=== PATIENT | female | born 1945 | race Caucasian/White ===

== ENCOUNTER 2022-11-13 20:12 | Inpatient (IN) | payer MEDICARE ==
[~2022-11-13] VITALS: Ht 165.1 cm; Wt 61.2 kg
--- OUTSIDE RECORDS SUMMARY | 2022-11-13 20:38 | XMS ---
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 Genny has no Care Guidelines for this patient. Stephenie VISIT COUNT (12 MO.) 1 [facility] TOTAL 1 NOTE: Visits indicate total known visits. ED/C VISIT TRACKING (12 MO.) 11/13/2022 20:14 [facility] [place] TYPE: Emergency COMPLAINT: - WEAKNESS INPATIENT VISIT TRACKING (12 MO.) No inpatient visits to display in this time frame [id number]
--- NOTE | 2022-11-13 23:00 | NUR ---
PT ARRIVES TO CCU ROOM 130 A MED SURG HOUSE CONVENIENCE. PT IS ALERT, AWAKE AND RESPONSDING APPROPRIATLEY. TRANSFERRED OVER TO BED USING DRAW SHEET. ASSESSMENT DONE, PT DENIES PAIN AT REST, DENIES FEELING SHORT OF BREATH. OCCASIONAL DRY COUGHING NOTED. ARRIVES ON 3L/O2 WITH SPO2 98%, O2 TITRATED DOWN TO 2L/O2. RR 20, LUNGS ARE DIM THROUGHOUT WITH FEW CRACKLES HEARD IN BASES. HR 70'S. ARRIVES WITH IV ABX INFUSING WHEN ARE SALINE LOCKED WHEN COMPLETED. PT GIVEN CALL LIGHT AND INSTRUCTED NOT TO GET UP WITHOUT CALLING AND SHE AGREES.
--- NOTE | 2022-11-13 23:30 | NUR ---
PT STATES SHE NEEDS TO VOID, UP WITH 2PA TO BS, PT WAS ABLE TO STAND UP WITH ASSIST AND DO MOST OF THE WORK HERSELF. DENIES DIZZINESS/LIGHTHEADEDNESS WHEN UP AND HR REMAINED STEADY. BACK TO BED, WARM BLANKET PROVIDED.
[2022-11-14] VITALS (10 sets, daily range): BP systolic 116–167; BP diastolic 65–92
--- NOTE | 2022-11-14 02:00 | NUR ---
PT CONT TO SLEEP, RESP EVEN AND UNLABORED, RR 24, SPO2 95% ON 2L
--- NOTE | 2022-11-14 04:00 | NUR ---
PT CONT TO SLEEP, RRR, HR 70'S
--- NOTE | 2022-11-14 05:45 | NUR ---
PT UP TO BR WITH 2PA, VOID 600ML AND BACK TO BED. WARM BLANKET PROVIDED.
--- NOTE | 2022-11-14 08:10 | NUR ---
RN IN ROOM - PT ASSISTED UP TO BSC WITH 1 PERSON ASSIST. SMALL HARD BM PRODUCED. PT USES FWW APPROPRIATLEY BUT WEAK FROM DECONDITIONING. DRY PRODUCTIVE COUGH NOTED WITH GREEN SPUTUM PT IS ABLE TO COUGH OUT. PT REMAINS ON 2L NC WITH SPO2 STABLE WITH AMBULATION. VS WNL. PT DENIES PAIN AT THIS TIME. DOES NOT WISH TO EAT BREAKFAST - JUICE PROVIDED PER REQUEST. AM CARES COMPLETE.
--- NOTE | 2022-11-14 08:43 | NUR ---
DAUGHTER UPDATED VIA PHONE CALL ON PT STATUS. ALL QUESTIONS ANSWERED.
[2022-11-14] MEDS ORDERED: ARMODAFINIL150 MG PO (10:20)
[2022-11-14] MEDS ORDERED: FESOTERODINE FUM4 MG PO (10:21)
[2022-11-14] MEDS ORDERED: BACLOFEN10 MG PO (10:21)
[2022-11-14] MEDS ORDERED: DULOXETINE HCL30 MG PO (10:21)
[2022-11-14] MEDS ORDERED: GABAPENTIN600 MG PO (10:22)
[2022-11-14] MEDS ORDERED: PRAVASTATIN SOD80 MG PO (10:22)
[2022-11-14] MEDS ORDERED: LAMOTRIGINE200 MG PO (10:22)
[2022-11-14] MEDS ORDERED: VITAMIN D3125 MC1 PO (10:24)
[2022-11-14] MEDS ORDERED: MUCINEX FAST-M180 M2 PO (10:25)
[2022-11-14] MEDS ORDERED: BAYER CHEWABLE81 MG PO (10:26)
[2022-11-14] MEDS ORDERED: CAL MAG ZINC +1 EACH PO (10:27)
[2022-11-14] MEDS ORDERED: TYLENOL EXTRA500 MG PO (10:28)
--- NOTE | 2022-11-14 10:29 | NUR ---
MED REC COMPLETE
--- NOTE | 2022-11-14 11:18 | NUR ---
PT ASSISTED TO BSC TO VOID - LARGE SOFT BM PRODUCED. PT BACK TO BED USING FWW AND 1 PERSON ASSIST. SCHEDULED MEDICATIONS ADMINISTERED. PT ABLE TO SWALLOW WITHOUT DIFFICULTY. CLEAR ENSURE PROVIDED FOR NUTRITIONAL SUPPORT. PT DENIES FURTHER NEEDS. CALL LIGHT IN LAP.
--- NOTE | 2022-11-14 13:01 | NUR ---
PT REFUSES LUNCH, STATES SHE IS NOT HUNGRY. ADDITIONAL CLEAR ENSURE PROVIDED WELL ICE WATER. ENCOURAGED PT TO DRINK FLUIDS. UP TO BSC BUT UNABLE TO VOID URINE. BLADDER SCAN SHOWED MAX 190MLS IN BLADDER. VS STABLE, WILL CONTINUE TO MONITOR/ASSESS.
--- NOTE | 2022-11-14 15:45 | NUR ---
ASSESSMENT COMPLETE - NO CHANGES. PT UP TO BSC AND ABLE TO VOID 550ML URINE. PT DENIES PAIN. PT TITRATED TO ROOM AIR AND SPO2 MAINTAINING GREATER THAN 92%. REAMINS IN SINUS RYTHEM. PT DENIES NEEDS. CALL LIGHT IN REACH.
--- NOTE | 2022-11-14 17:00 | NUR ---
RN ROUNDING ON PT - RESTING IN BED WITH HOB ELEVATED, EYES CLOSED, RR EVEN AND UNLABORED. CALL LIGHT IN LAP.
--- NOTE | 2022-11-14 20:00 | NUR ---
RECEIVED REPORT FROM VALE BOLTON; PT CALLS APPROPRIATELY, DENIES PAIN AT THIS TIME, CURRENTLY ON RA SATING IN THE S, WILL CONTINUE TO MONITOR AND NOTIFY PROVIDER WITH ANY CHANGES IN PT STATUS
[2022-11-15] VITALS: BP 87/58
--- NOTE | 2022-11-15 03:36 | NUR ---
PT SLEPT WELL OVER REGISTERED PHARMACY TECHNICIAN, PT CALLS APPROPRIATELY, VSS, PT HAS BEEN ON RA THROUGHOUT REGISTERED PHARMACY TECHNICIAN, NO SIGNIFICANT CHANGES, WILL CONTINUE TO MONITOR
[2022-11-15 03:38] VITALS: BP 111/69
[2022-11-15 05:34] VITALS: BP 108/71
--- NOTE | 2022-11-15 07:42 | NUR ---
REPORT RECEIVED FROM TORO COLLAZO. PT IS RESTING IN BED WITH EYES CLOSED, RESP EVEN AND UNLABORED, ON ROOM AIR WITH SPO2 94%, RR 22 AND HR 80S NSR
[2022-11-15 08:00] VITALS: BP 136/69
--- NOTE | 2022-11-15 08:15 | NUR ---
PT UP TO VOID, STEADY WITH 1PA AND WALKER, BACK TO BED, STATES SHE DOES NOT WANT BREAKFAST AND WANTS TO SLEEP MORE.
--- NOTE | 2022-11-15 09:50 | NUR ---
IN TO SEE PT
--- NOTE | 2022-11-15 09:54 | NUR ---
SPOKE TO PATIENT ABOUT HER DISCHARGE PLAN.PATIENT PLANS TO GO BACK TO [facility] WHEN MEDICALLY STABLE. PATIENT CAN DO HER OWN ADLS.PATIENT USES A WALKER.PATIENT HAS HER MEDICATIONS AND MEALS PROVIDED BY THE [facility]. PATIENT STATES TRANSPORTATION IS PROVIDED BY HER BROTHERS. SPOKE TO THE NURSE AT [facility] AND UPDATED FACILITY THAT PATIENT MAY GO BACK TO [facility] TODAY. [employer]ER WILL FAX UPDATED PATIENT MEDICAL RECORDS TO [facility].
[2022-11-15] MEDS ORDERED: CEFPODOXIME PR200 MG PO (10:29)
[2022-11-15] MEDS ORDERED: AZITHROMYCIN250 MG PO (10:30)
[2022-11-15] MEDS ORDERED: ELIQUIS5 MG PO (10:35)
--- NOTE | 2022-11-15 12:03 | NUR ---
PT IS REQUESTING PCP REFERRAL, SPOKE WITH LILIANA FROM CASE MANAGEMENT WHO WILL WORK ON GETTING PT A PCP REFERRAL.
[2022-11-25] MEDS ORDERED: ELIQUIS5 MG PO (14:01)
[2022-11-25] MEDS ORDERED: BENZONATATE100 MG PO (14:03)
[2022-11-25] MEDS ORDERED: MUCINEX600 MG PO (14:04)
[2022-11-27] MEDS ORDERED: ARMODAFINIL150 MG PO (20:52)
== END 2022-11-15 12:45 | DRG 177 ==
LOC: ED 20:12 → CCU 22:29
PROVIDERS: ADMIT Family Medicine; ATTEND Family Medicine
PROC: 3E0333Z Introduction of Anti-inflammatory into Peripheral Vein, Percutaneous Approach (ICD-10-PCS; principal; 2022-11-13)
PROC: 8E0ZXY6 Isolation (ICD-10-PCS; 2022-11-13)
PROC: XW033E5 Introduction of Remdesivir Anti-infective into Peripheral Vein, Percutaneous Approach, New Technology Group 5 (ICD-10-PCS; 2022-11-14)
DX: U07.1 COVID-19 (principal); I26.94 Multiple subsegmental thrombotic pulmonary emboli without acute cor pulmonale; J12.82 Pneumonia due to coronavirus disease 2019; J96.01 Acute respiratory failure with hypoxia; E78.5 Hyperlipidemia, unspecified; N32.81 Overactive bladder; R25.1 Tremor, unspecified; M54.9 Dorsalgia, unspecified; G89.29 Other chronic pain; G35 Multiple sclerosis; M19.90 Unspecified osteoarthritis, unspecified site; Z99.81 Dependence on supplemental oxygen; Z79.01 Long term (current) use of anticoagulants; Z79.899 Other long term (current) drug therapy
CPT/HCPCS: 36415; 71045; 71260; 80048; 80053; 81003; 82803; 83605; 83615; 83880; 84484; 85025; 85379; 85610; 94640; 97161; 99285 25; J0248; J0456; J0696; J1100; J1650; J7050; J7060

== ENCOUNTER 2022-11-18 10:27 | Emergency (ER) | payer MEDICARE ==
[~2022-11-18] VITALS: Ht 165.1 cm; Wt 61.2 kg
--- OUTSIDE RECORDS SUMMARY | ~2022-11-18 | XMS | Continuity of Care Document ---
Demographics + + + | Address | [address] | | | [place] [address] | + + + | Preferred Language | Unknown | + + + | Marital Status | | + + + | Orthodoxy Affiliation | Unknown | + + + | Race | White | + + + | Ethnic Group | Not or | + + + Author + + + | Author | [facility] | + + + | Organization | [facility] | + + + | Address | [address] | | | [place] [address] | + + + | Phone | | + + + Care Team Providers + + + + | Care Development Lead Name | Role | Phone | + + + + Unavailable | Unavailable | + + + + Unavailable | Unavailable | + + + + Unavailable | Unavailable | + + + + Allergies No information. Encounters No information. Functional Status No information. Immunizations No information. Medications + + + + | date | description | facility | + + + + | 2022-11-15 00:00 | | [facility] | | | Guaifenesin/Dextromethorpha | | | | n | | + + + + | 2022-11-15 00:00 | CA CARB/VIT D3/MAG OX/ZN | [facility] | | | OXIDE | | + + + + | 2022-11-15 00:00 | APIXABAN | [facility] | + + + + | 2022-11-15 00:00 | BACLOFEN | [facility] | + + + + | 2022-11-15 00:00 | LAMOTRIGINE | [facility] | + + + + | 2022-11-15 00:00 | ACETAMINOPHEN | [facility] | + + + + | 2022-11-15 00:00 | Cholecalciferol (Vitamin | [facility] | | | D3) | | + + + + | 2022-11-15 00:00 | AZITHROMYCIN | [facility] | + + + + | 2022-11-15 00:00 | CEFPODOXIME PROXETIL | [facility] | + + + + | 2022-11-15 00:00 | GABAPENTIN | [facility] | + + + + | 2022-11-15 00:00 | DULOXETINE HCL | [facility] | + + + + | 2022-11-15 00:00 | Armodafinil | [facility] | + + + + | 2022-11-15 00:00 | Fesoterodine Fumarate | [facility] | + + + + | 2022-11-15 00:00 | ASPIRIN | [facility] | + + + + | 2022-11-15 00:00 | PRAVASTATIN SODIUM | [facility] | + + + + Problems + + + + | date | description | facility | + + + + | 2022-11-13 00:00 | Multiple subsegmental | [facility] | | | pulmonary emboli without | | | | acute cor pulmonale | | + + + + | 2022-11-13 00:00 | Pneumonia due to COVID-19 | [facility] | | | virus | | + + + + | 2022-11-13 22:29 | HYPERLIPIDEMIA, | [facility] | | | UNSPECIFIED | | + + + + | 2022-11-13 22:29 | 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 | | | | (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-G37) | | + + + + | 2022-11-13 22:29 | OTHER CHRONIC PAIN | [facility] | + + + + | 2022-11-13 22:29 | MULT SUBSEGMENTAL PULMON | [facility] | | | EMBOLI WITHOUT ACUTE COR | | + + + + | 2022-11-13 22:29 | ACUTE RESPIRATORY FAILURE | [facility] | | | WITH HYPOXIA | | + + + + | 2022-11-13 22:29 | UNSPECIFIED | [facility] | | | OSTEOARTHRITIS, UNSPECIFIED | | | | SITE | | + + + + | 2022-11-13 22:29 | DORSALGIA, UNSPECIFIED | [facility] | + + + + | 2022-11-13 22:29 | OVERACTIVE BLADDER | [facility] | + + + + | 2022-11-13 22:29 | TREMOR, UNSPECIFIED | [facility] | + + + + | 2022-11-13 22:29 | COVID-19 | [facility] | + + + + | 2022-11-13 22:29 | HALF-WAY (CURRENT) USE OF | [facility] | | | ANTICOAGULANTS | | + + + + | 2022-11-13 22:29 | OTHER HALF-WAY (CURRENT) | [facility] | | | DRUG THERAPY | | + + + + | 2022-11-13 22:29 | DEPENDENCE ON SUPPLEMENTAL | [facility] | | | OXYGEN | | + + + + Procedures No information. Results/Labs +--------+--------+ + +---------+--------+ + | test | date | author | facility | value | unit | | | | | | | | | interpreta | | | | | | | | tion | +--------+--------+ + +---------+--------+ + + + | Result panel 1 | + + + + + + +---------+ + + | (unknown) | (no date) | (unknown) | [facility] (no | (units | (unknown) | | | [facility] value[facility] | [facility] | | | | + + + + +---------+ + + + + | Result panel 2 | + + + + + + +---------+ + + | (unknown) | (no date) | (unknown) | [facility] | (no | (units | (unknown) | | | [facility] | value) | unknown) | [facility] | | | | + + + + +---------+ + + + + | Result panel 3 | + + + + + + +---------+ + + | (unknown) | (no date) | (unknown) | [facility] | (no | (units | (unknown) | | | [facility] | value) | unknown) | | [facility] | | | | + + + + +---------+ + + + + | Result panel 4 | + + + + + + +---------+ + + | (unknown) | (no date) | (unknown) | [facility] | (no | (units | (unknown) | | | [facility] | value) | unknown) | | [facility] | | | | + + + + +---------+ + + + + | Result panel 5 | + + + + + + +---------+ + + | (unknown) | (no date) | (unknown) | [facility] | (no | (units | (unknown) | | | | [facility] | value) | unknown) | | | | [facility] | | | | + + + + +---------+ + + + + | Result panel 6 | + + + + + + +---------+ + + | (unknown) | (no date) | (unknown) | [facility] | (no | (units | (unknown) | | | | [facility] | value) | unknown) | | | [facility] | | | | + + + + +---------+ + + + + | Result panel 7 | + + + + + + +---------+ + + | (unknown) | (no date) | (unknown) | [facility] | (no | (units | (unknown) | | | [facility] | value) | unknown) | | | | [facility] | | | | + + + + +---------+ + + + + | Result panel 8 | + + + + + + +---------+ + + | (unknown) | (no date) | (unknown) | [facility] | (no | (units | (unknown) | | | | [facility] | value) | unknown) | | | | [facility] | | | | + + + + +---------+ + + + + | Result panel 9 | + + + + + + +---------+ + + | (unknown) | (no date) | (unknown) | [facility] | (no | (units | (unknown) | | | | [facility] | value) | unknown) | | | | [facility] | | | | + + + + +---------+ + + + + | Result panel 10 | + + + + + + +---------+ + + | (unknown) | (no date) | (unknown) | [facility] | (no | (units | (unknown) | | | [facility] | value) | unknown) | | | [facility] | | | | + + + + +---------+ + + + + | Result panel 11 | + + + + + + +---------+ + + | (unknown) | (no date) | (unknown) | [facility] | (no | (units | (unknown) | | | [facility] | value) | [facility]) | | | | [facility] | | | | + + + + +---------+ + + + + | Result panel 12 | + + + + + + +---------+ + + | (unknown) | (no date) | (unknown) | [facility] | (no | (units | (unknown) | | | [facility] | value) | [facility]) | | | | [facility] | | | | + + + + +---------+ + + + + | Result panel 13 | + + + + + + +---------+ + + | (unknown) | (no date) | (unknown) | [facility] | (no | (units | (unknown) | | | [facility] | value) | unknown) | | | | [facility] | | | | + + + + +---------+ + + + + | Result panel 14 | + + + + + + +---------+ + + | (unknown) | (no date) | (unknown) | [facility] | (no | (units | (unknown) | | | [facility] | value) | [facility]) | | | | [facility] | | | | + + + + +---------+ + + + + | Result panel 15 | + + + + + + +---------+ + + | (unknown) | (no date) | (unknown) | [facility] | (no | (units | (unknown) | | | [facility] | value) | [facility]) | | | [facility] | | | | + + + + +---------+ + + + + | Result panel 16 | + + + + + + +---------+ + + | (unknown) | (no date) | (unknown) | [facility] | (no | (units | (unknown) | | | [facility] | value) | [facility]) | | | | [facility] | | | | + + + + +---------+ + + + + | Result panel 17 | + + + + + + +---------+ + + | (unknown) | (no date) | (unknown) | [facility] | (no | (units | (unknown) | | | [facility] | value) | [facility]) | | | [facility] | | | | + + + + +---------+ + + + + | Result panel 18 | + + + + + + +---------+ + + | (unknown) | (no date) | (unknown) | [facility] | (no | (units | (unknown) | | | [facility] value) | [facility]) | | [facility] | | | | + + + + +---------+ + + + + | Result panel 19 | + + + + + + +---------+ + + | (unknown) | (no date) | (unknown) | [facility] | (no | (units | (unknown) | [facility] | [facility] value) | [facility]) | | | [facility] | | | | + + + + +---------+ + + + + | Result panel 20 | + + + + + + +---------+ + + | (unknown) | (no date) | (unknown) | [facility] | (no | (units | (unknown) | | | [facility] value) | [facility]) | | [facility] | | | | + + + + +---------+ + + + + | Result panel 21 | + + + + + + +---------+ + + | (unknown) | (no date) | (unknown) | [facility] | (no | (units | (unknown) | | | [facility] value) | [facility]) | | [facility] | | | | + + + + +---------+ + + + + | Result panel 22 | + + + + + + +---------+ + + | (unknown) | (no date) | (unknown) | [facility] | (no | (units | (unknown) | | | [facility] value) | [facility]) | | [facility] | | | | + + + + +---------+ + + + + | Result panel 23 | + + + + + + +---------+ + + | (unknown) | (no date) | (unknown) | [facility] | (no | (units | (unknown) | | | [facility] | value) | [facility]) | | | [facility] | | | | + + + + +---------+ + + + + | Result panel 24 | + + + + + + +---------+ + + | (unknown) | (no date) | (unknown) | [facility] | (no | (units | (unknown) | | | [facility] value) | [facility]) | [facility] | | | | + + + + +---------+ + + + + | Result panel 25 | + + + + + + +---------+ + + | (unknown) | (no date) | (unknown) | [facility] | (no | (units | (unknown) | | | [facility] value) | [facility]) | | [facility] | | | | + + + + +---------+ + + + + | Result panel 26 | + + + + + + +---------+ + + | (unknown) | (no date) | (unknown) | [facility] | (no | (units | (unknown) | | | [facility] value) | [facility]) | | [facility] | | | | + + + + +---------+ + + + + | Result panel 27 | + + + + + + +---------+ + + | (unknown) | (no date) | (unknown) | [facility] | (no | (units | (unknown) | | | [facility] value) | [facility]) | | [facility] | | | | + + + + +---------+ + + + + | Result panel 28 | + + + + + + +---------+ + + | (unknown) | (no date) | (unknown) | [facility] | (no | (units | (unknown) | | | [facility] value) | [facility]) | | [facility] | | | | + + + + +---------+ + + + + | Result panel 29 | + + + + + + +---------+ + + | (unknown) | (no date) | (unknown) | [facility] | (no | (units | (unknown) | | | [facility] | value) | [facility]) | | [facility] | | | | + + + + +---------+ + + + + | Result panel 30 | + + + + + + +---------+ + + | (unknown) | (no date) | (unknown) | [facility] | (no | (units | (unknown) | | | [facility] value) | [facility]) | [facility] | | | | + + + + +---------+ + + + + | Result panel 31 | + + + + + + +---------+ + + | (unknown) | (no date) | (unknown) | [facility] | (no | (units | (unknown) | | | [facility] value) | [facility]) | [facility] | | | | + + + + +---------+ + + + + | Result panel 32 | + + + + + + +---------+ + + | (unknown) | (no date) | (unknown) | [facility] | (no | (units | (unknown) | | | [facility] | value) | [facility]) | | [facility] | | | | + + + + +---------+ + + + + | Result panel 33 | + + + + + + +---------+ + + | (unknown) | (no date) | (unknown) | [facility] | (no | (units | (unknown) | | | [facility] | value) | [facility]) | | [facility] | | | | + + + + +---------+ + + + + | Result panel 34 | + + + + + + +---------+ + + | (unknown) | (no date) | (unknown) | [facility] | (no | (units | (unknown) | | | [facility] | value) | [facility]) | | | [facility] | | | | + + + + +---------+ + + + + | Result panel 35 | + + + + + + +---------+ + + | (unknown) | (no date) | (unknown) | [facility] | (no | (units | (unknown) | | | [facility] | value) | [facility]) | | | [facility] | | | | + + + + +---------+ + + + + | Result panel 36 | + + + + + + +---------+ + + | (unknown) | (no date) | (unknown) | [facility] | (no | (units | (unknown) | | | [facility] | value) | [facility]) | | | [facility] | | | | + + + + +---------+ + + + + | Result panel 37 | + + + + + + +---------+ + + | (unknown) | (no date) | (unknown) | [facility] | (no | (units | (unknown) | | | [facility] | value) | [facility]) | | | [facility] | | | | + + + + +---------+ + + + + | Result panel 38 | + + + + + + +---------+ + + | (unknown) | (no date) | (unknown) | [facility] | (no | (units | (unknown) | | | [facility] | value) | [facility]) | | | [facility] | | | | + + + + +---------+ + + + + | Result panel 39 | + + + + + + +---------+ + + | (unknown) | (no date) | (unknown) | [facility] | (no | (units | (unknown) | | | [facility] | value) | [facility]) | | [facility] | | | | + + + + +---------+ + + + + | Result panel 40 | + + + + + + +---------+ + + | (unknown) | (no date) | (unknown) | [facility] | (no | (units | (unknown) | | | [facility] value) | [facility]) | | [facility] | | | | + + + + +---------+ + + + + | Result panel 41 | + + + + + + +---------+ + + | (unknown) | (no date) | (unknown) | [facility] | (no | (units | (unknown) | | | [facility] value) | [facility]) | | | [facility] | | | | + + + + +---------+ + + + + | Result panel 42 | + + + + + + +---------+ + + | (unknown) | (no date) | (unknown) | [facility] | (no | (units | (unknown) | | | [facility] | value) | [facility]) | | [facility] | | | | + + + + +---------+ + + + + | Result panel 43 | + + + + + + +---------+ + + | (unknown) | (no date) | (unknown) | [facility] | (no | (units | (unknown) | | | [facility] | value) | [facility]) | | | [facility] | | | | + + + + +---------+ + + + + | Result panel 44 | + + + + + + +---------+ + + | (unknown) | (no date) | (unknown) | [facility] | (no | (units | (unknown) | | | [facility] value) | [facility]) | [facility] | | | | + + + + +---------+ + + + + | Result panel 45 | + + + + + + +---------+ + + | (unknown) | (no date) | (unknown) | [facility] | (no | (units | (unknown) | | | [facility] | [facility] | | | | + + + + +---------+ + + + + | Result panel 46 | + + + + + + +---------+ + + | (unknown) | (no date) | (unknown) | [facility] | (no | (units | (unknown) | | | [facility]) | [facility]) | [facility] | | | | + + + + +---------+ + + + + | Result panel 47 | + + + + + + +---------+ + + | (unknown) | (no date) | (unknown) | [facility] | (no | (units | (unknown) | | | [facility] value) | [facility] | | [facility] | | | | + + + + +---------+ + + + + | Result panel 48 | + + + + + + +---------+ + + | (unknown) | (no date) | (unknown) | [facility] | (no | (units | (unknown) | | | [facility]) | [facility]) | | [facility] | | | | + + + + +---------+ + + + + | Result panel 49 | + + + + + + +---------+ + + | (unknown) | (no date) | (unknown) | [facility] | (no | (units | (unknown) | | | [facility]) | [facility]) | [facility] | | | | + + + + +---------+ + + + + | Result panel 50 | + + + + + + +---------+ + + | (unknown) | (no date) | (unknown) | [facility] | (no | (units | (unknown) | | | [facility]) | [facility]) | [facility] | | | | + + + + +---------+ + + + + | Result panel 51 | + + + + + + +---------+ + + | (unknown) | (no date) | (unknown) | [facility] | (no | (units | (unknown) | | | [facility] | [facility] | | | | + + + + +---------+ + + Social History + + + + | date | description | facility | + + + + | 2022-11-15 00:00 | Unknown if ever smoked | [facility] | + + + + Vital Signs + + + +---------+ | date | measurement | value | units | + + + +---------+ | 2022-11-13 00:00 | BMI | 22.5 | kg/m2 | + + + +---------+ | 2022-11-13 00:00 | height_metric | 165.1 | cm | + + + +---------+ | 2022-11-13 00:00 | height_standard | 65 | in | + + + +---------+ | 2022-11-13 00:00 | weight_metric | 61.23 | kg | + + + +---------+ | 2022-11-13 00:00 | weight_standard | 134.99 | lb | + + + +---------+ | 2022-11-13 00:00 | weight_standard | 135 | lb | + + + +---------+ | 2022-11-15 00:00 | BP_diastolic | 69 | mmHg | + + + +---------+ | 2022-11-15 00:00 | BP_systolic | 136 | mmHg | + + + +---------+ | 2022-11-15 00:00 | heart_rate | 85 | /min | + + + +---------+ | 2022-11-15 00:00 | o2_saturation | 94 | % | + + + +---------+ | 2022-11-15 00:00 | respiration_rate | 18 | /min | + + + +---------+ | 2022-11-15 00:00 | temperature_metric | 36.61 | C | | | | | | + + + +---------+ | 2022-11-15 00:00 | | 97.9 | F | | | temperature_standar | | | | | d | | | + + + +---------+"
--- OUTSIDE RECORDS SUMMARY | ~2022-11-18 | XMS | Continuity of Care Document ---
Demographics + + + | Address | [address] | | | [place] [address] | + + + | Preferred Language | Unknown | + + + | Marital Status | | + + + | Pentecostal Affiliation | Unknown | + + + | Race | White | + + + | Ethnic Group | Not or | + + + Author + + + | Author | [facility] | + + + | Organization | [facility] | + + + | Address | [address] | | | [place] [address] | + + + | Phone | | + + + Care Team Providers + + + + | Care Pain Medicine Physician Name | Role | Phone | + [...] + + | 2022-11-15 00:00 | | [facility] | | | Guaifenesin/Dextromethorpha | | | | n | | + + + + | 2022-11-15 00:00 | CA CARB/VIT D3/MAG OX/ZN | [facility] | | | OXIDE | | + + + + | 2022-11-15 00:00 | APIXABAN | [facility] | + + + + | 2022-11-15 00:00 | BACLOFEN | [facility] | + + + + | 2022-11-15 00:00 | LAMOTRIGINE | [facility] | + + + + | 2022-11-15 00:00 | ACETAMINOPHEN | [facility] | + + + + | 2022-11-15 00:00 | Cholecalciferol (Vitamin | [facility] | | | D3) | | + + + + | 2022-11-15 00:00 | AZITHROMYCIN | [facility] | + + + + | 2022-11-15 00:00 | CEFPODOXIME PROXETIL | [facility] | + + + + | 2022-11-15 00:00 | GABAPENTIN | [facility] | + + + + | 2022-11-15 00:00 | DULOXETINE HCL | [facility] | + + + + | 2022-11-15 00:00 | Armodafinil | [facility] | + + + + | 2022-11-15 00:00 | Fesoterodine Fumarate | [facility] | + + + + | 2022-11-15 00:00 | ASPIRIN | [facility] | + + + + | 2022-11-15 00:00 | PRAVASTATIN SODIUM | [facility] | + + + + Problems + + + + | date | description | facility | + + + + | 2022-11-13 00:00 | Multiple subsegmental | [facility] | | | pulmonary emboli without | | | | acute cor pulmonale | | + + + + | 2022-11-13 00:00 | Pneumonia due to COVID-19 | [facility] | | | virus | | [...] + + + | 2022-11-13 22:29 | PRISON (CURRENT) USE OF | [facility] | | | ANTICOAGULANTS | | + + + + | 2022-11-13 22:29 | OTHER PRISON (CURRENT) | [facility] | | | DRUG [...] | (unknown) | | | | | Wilyl | value) | unknown) | | | [...] | (unknown) | | | | | Wlily | value) | unknown) | | | [...] 00:00 | Unknown if ever smoked | [facility] | + + + + Vital Signs [...]
[~2022-11-18 10:27] MED LIST: ARMODAFINIL150 MG PO; AZITHROMYCIN250 MG PO; BACLOFEN10 MG PO; BAYER CHEWABLE81 MG PO; CAL MAG ZINC +1 EACH PO; CEFPODOXIME PR200 MG PO; DULOXETINE HCL30 MG PO; ELIQUIS5 MG PO; FESOTERODINE FUM4 MG PO; GABAPENTIN600 MG PO; LAMOTRIGINE200 MG PO; MUCINEX FAST-M180 M2 PO; PRAVASTATIN SOD80 MG PO; TYLENOL EXTRA500 MG PO; VITAMIN D3125 MC1 PO
--- OUTSIDE RECORDS SUMMARY | 2022-11-18 10:30 | XMS ---
PreManage Notification: RY REDDY Security Site Leader Events No recent Security Events currently on file CRITERIA MET - [facility] - [facility] - 2 Visits in 30 Days CARE PROVIDERS There are no care providers on record at this time. Genny has no Care Guidelines for this patient. Stephen[facility] (12 MO.) [facility] NOTE: Visits indicate total known visits. ED/C VISIT TRACKING (12 MO.) 11[facility]18[facility]2022 10:[facility] COMPLAINT: - WEAKNESS, COVID+ 11/13/2022 20:14 [facility] [place] TYPE: Emergency COMPLAINT: - WEAKNESS INPATIENT VISIT TRACKING (12 MO.) 11/13/2022 22:29 [facility] [place] TYPE: Critical Care COMPLAINT: - COVID PNA,SUB SEGMENTAL PE DIAGNOSES: - Acute respiratory failure with hypoxia - Acute respiratory failure with hypoxia - COVID-19 - Dependence on supplemental oxygen - Dependence on supplemental oxygen - Dorsalgia, unspecified - Dorsalgia, unspecified - Hyperlipidemia, unspecified - Hyperlipidemia, unspecified - terminal system operator (current) use of anticoagulants - terminal system operator (current) use of anticoagulants - Multiple sclerosis - Multiple sclerosis - Multiple subsegmental pulmonary emboli without acute cor pulmonale - Multiple subsegmental pulmonary emboli without acute cor pulmonale - Other chronic pain - Other chronic pain - Other terminal operator (current) drug therapy - Other fdc (current) drug therapy - Overactive bladder - Overactive bladder - Pneumonia due to coronavirus disease 2018 - Pneumonia due to coronavirus disease 2018 - Tremor, unspecified - Tremor, unspecified - Unspecified osteoarthritis, unspecified site - Unspecified osteoarthritis, unspecified site [id number]
[2022-11-18 18:13] VITALS: BP 131/71
[2022-11-25] MEDS ORDERED: ELIQUIS5 MG PO (14:01)
[2022-11-25] MEDS ORDERED: BENZONATATE100 MG PO (14:03)
[2022-11-25] MEDS ORDERED: MUCINEX600 MG PO (14:04)
[2022-11-27] MEDS ORDERED: ARMODAFINIL150 MG PO (20:52)
== END 2022-11-18 18:15 | disposition home or self-care (01) ==
LOC: ED 10:27
DX: R53.1 Weakness (principal); Z79.01 Long term (current) use of anticoagulants; Z79.899 Other long term (current) drug therapy; Z86.16 Personal history of COVID-19
CPT/HCPCS: 36415; 51701; 71045; 80053; 81003; 85025; 99285 25; J7030

== ENCOUNTER 2022-11-19 12:16 | Inpatient (IN) | payer MEDICARE ==
[~2022-11-19] VITALS: Ht 165.1 cm; Wt 62.2 kg
--- OUTSIDE RECORDS SUMMARY | ~2022-11-19 | XMS | Continuity of Care Document ---
Demographics + + + | Address | [address] | | | [place] [address] | + + + | Preferred Language | Unknown | + + + | Marital Status | | + + + | Pentecostal Affiliation | Unknown | + + + | Race | White | + + + | Ethnic Group | Not or | + + + Author + + + | Author | [facility] | + + + | Organization | [facility] | + + + | Address | [address] | | | [place] [address] | + + + | Phone | | + + + Care Team Providers + + + + | Care Career Advisor Name | Role | Phone | + + + + Unavailable | Unavailable | + + + + Unavailable | Unavailable | + + + + Unavailable | Unavailable | + + + + Allergies and Intolerances + + + + + | date | description | facility | type | + + + + + | (no date) | No Known Allergies | [facility] | (unknown) | | | | | | + + + + + Encounters No information. Functional Status No information. Immunizations No information. Medications + + + + | date | description | facility | + + + + | 2022-11-15 00:00 | | [facility] | | | Guaifenesin/Dextromethorpha | | | | n | | + + + + | 2022-11-18 00:00 | | [facility] | | | Guaifenesin/Dextromethorpha | | | | n | | + + + + | 2022-11-15 00:00 | CA CARB/VIT D3/MAG OX/ZN | [facility] | | | OXIDE | | + + + + | 2022-11-18 00:00 | CA CARB/VIT D3/MAG OX/ZN | [facility] | | | OXIDE | | + + + + | 2022-11-15 00:00 | APIXABAN | [facility] | + + + + | 2022-11-15 00:00 | BACLOFEN | [facility] | + + + + | 2022-11-18 00:00 | BACLOFEN | [facility] | + + + + | 2022-11-15 00:00 | LAMOTRIGINE | [facility] | + + + + | 2022-11-18 00:00 | LAMOTRIGINE | [facility] | + + + + | 2022-11-15 00:00 | ACETAMINOPHEN | [facility] | + + + + | 2022-11-18 00:00 | ACETAMINOPHEN | [facility] | + + + + | 2022-11-15 00:00 | Cholecalciferol (Vitamin | [facility] | | | D3) | | + + + + | 2022-11-18 00:00 | Cholecalciferol (Vitamin | [facility] | | | D3) | | + + + + | 2022-11-15 00:00 | AZITHROMYCIN | [facility] | + + + + | 2022-11-15 00:00 | CEFPODOXIME PROXETIL | [facility] | + + + + | 2022-11-15 00:00 | GABAPENTIN | [facility] | + + + + | 2022-11-18 00:00 | GABAPENTIN | [facility] | + + + + | 2022-11-15 00:00 | DULOXETINE HCL | [facility] | + + + + | 2022-11-18 00:00 | DULOXETINE HCL | [facility] | + + + + | 2022-11-15 00:00 | Armodafinil | [facility] | + + + + | 2022-11-18 00:00 | Armodafinil | [facility] | + + + + | 2022-11-15 00:00 | Fesoterodine Fumarate | [facility] | + + + + | 2022-11-18 00:00 | Fesoterodine Fumarate | [facility] | + + + + | 2022-11-15 00:00 | ASPIRIN | [facility] | + + + + | 2022-11-18 00:00 | ASPIRIN | [facility] | + + + + | 2022-11-15 00:00 | PRAVASTATIN SODIUM | [facility] | + + + + | 2022-11-18 00:00 | PRAVASTATIN SODIUM | [facility] | + + + + Problems + + + + | date | description | facility | + + + + | 2022-11-13 00:00 | Multiple subsegmental | [facility] | | | pulmonary emboli without | | | | acute cor pulmonale | | + + + + | 2022-11-13 00:00 | Pneumonia due to COVID-19 | [facility] | | | virus | | [...] + + + | 2022-11-13 22:29 | RAIL LOADER (CURRENT) USE OF | [facility] | | | ANTICOAGULANTS | | + + + + | 2022-11-13 22:29 | OTHER RAIL LOADER (CURRENT) | [facility] | | | DRUG THERAPY | | + + + + | 2022-11-13 22:29 | DEPENDENCE ON SUPPLEMENTAL | [facility] | | | OXYGEN | | + + + + | 2022-11-18 00:00 | Nonspecific chest pain | [facility] | + + + + Procedures + + + + | date | description | facility | + + + + | 2022-11-13 00:00 | INTRODUCTION OF | [facility] | | | ANTI-INFLAM INTO PERIPH | | | | VEIN, PERC APPROACH | | + + + + | 2022-11-13 00:00 | ISOLATION | [facility] | + + + + | 2022-11-14 00:00 | INTRODUCE REMDESIVIR IN | [facility] | | | PERIPH VEIN, VERNA, NEW TECH | | | | 5 | | + + + + Results/Labs +--------+--------+ + +---------+--------+ + | test [...] (unknown) | (no date) | (unknown) | [facility] | (no | (units | (unknown) | | | | | [place] | value) | unknown) | | | [...] + + + + | Result panel 52 | + + + + + + [...] 53 | + + + + + + [...] 54 | + + + + + + +---------+ + + | (unknown) | (no date) | (unknown) | [facility] | (no | (units | (unknown) | | | | [facility] | value) | unknown) | | | | | | [facility] | | | | + + + + +---------+ + + + + | Result panel 55 | + + + + + + [...] 56 | + + + + + + [...] 57 | + + + + + + [...] 58 | + + + + + + [...] 59 | + + + + + + [...] 60 | + + + + + + [...] 61 | + + + + + + [...] 62 | + + + + + + [...] 63 | + + + + + + +---------+ + + | (unknown) | (no date) | (unknown) | [facility] | (no | (units | (unknown) | | | | [facility] | value) | unknown) | | | | | | [facility] | | | | + + + + +---------+ + + + + | Result panel 64 | + + + + + + [...] 65 | + + + + + + [...] 66 | + + + + + + [...] 67 | + + + + + + [...] 68 | + + + + + + [...] 69 | + + + + + + [...] 70 | + + + + + + [...] 71 | + + + + + + [...] 72 | + + + + + + [...] 73 | + + + + + + [...] 74 | + + + + + + [...] 75 | + + + + + + [...] 76 | + + + + + + [...] 77 | + + + + + + [...] 78 | + + + + + + [...] 79 | + + + + + + [...] 80 | + + + + + + [...] 81 | + + + + + + [...] 82 | + + + + + + [...] 83 | + + + + + + [...] 84 | + + + + + + [...] 85 | + + + + + + [...] 86 | + + + + + + [...] 87 | + + + + + + [...] 88 | + + + + + + [...] 89 | + + + + + + [...] 90 | + + + + + + [...] 91 | + + + + + + [...] 92 | + + + + + + +---------+ + + | (unknown) | (no date) | (unknown) | [facility] | (no | (units | (unknown) | | | | [facility] | value) | unknown) | | | | | | [facility] | | | | + + + + +---------+ + + + + | Result panel 93 | + + + + + + +---------+ + + | (unknown) | (no date) | (unknown) | [facility] | (no | (units | (unknown) | | | | | [facility] | value) | unknown) | | | | | | [facility] | | | | + + + + +---------+ + + + + | Result panel 94 | + + + + + + +---------+ + + | (unknown) | (no date) | (unknown) | [facility] | (no | (units | (unknown) | | | | | [facility] | value) | unknown) | | | | | | [facility] | | | | + + + + +---------+ + + + + | Result panel 95 | + + + + + + [...] 96 | + + + + + + [...] 97 | + + + + + + [...] 98 | + + + + + + [...] 99 | + + + + + + [...] 100 | + + + + + + [...] 101 | + + + + + + [...] 102 | + + + + + + [...] 00:00 | Unknown if ever smoked | [facility] | + + + + | 2022-11-18 00:00 | Unknown if ever smoked | [facility] | + + + + Vital [...] 135 | lb | + + + +---------+"
--- OUTSIDE RECORDS SUMMARY | ~2022-11-19 | XMS | Continuity of Care Document ---
Demographics + + + | Address | [address] | | | [place] [address] | + + + | Preferred Language | Unknown | + + + | Marital Status | | + + + | Yazidi Affiliation | Unknown | + + + | Race | White | + + + | Ethnic Group | Not or | + + + Author + + + | Author | [facility] | + + + | Organization | [facility] | + + + | Address | [address] | | | [place] [address] | + + + | Phone | | + + + Care Team Providers + + + + | Care Filter Tip Catcher Name | Role | Phone | + [...] + | 2022-11-15 00:00 | | [facility] | | | Guaifenesin/Dextromethorpha | | | | n | | + + + + | 2022-11-18 00:00 | | [facility] | | | Guaifenesin/Dextromethorpha | | | | n | | + + + + | 2022-11-15 00:00 | CA CARB/VIT D3/MAG OX/ZN | [facility] | | | OXIDE | | + + + + | 2022-11-18 00:00 | CA CARB/VIT D3/MAG OX/ZN | [facility] | | | OXIDE | | + + + + | 2022-11-15 00:00 | APIXABAN | [facility] | + + + + | 2022-11-15 00:00 | BACLOFEN | [facility] | + + + + | 2022-11-18 00:00 | BACLOFEN | [facility] | + + + + | 2022-11-15 00:00 | LAMOTRIGINE | [facility] | + + + + | 2022-11-18 00:00 | LAMOTRIGINE | [facility] | + + + + | 2022-11-15 00:00 | ACETAMINOPHEN | [facility] | + + + + | 2022-11-18 00:00 | ACETAMINOPHEN | [facility] | + + + + | 2022-11-15 00:00 | Cholecalciferol (Vitamin | [facility] | | | D3) | | + + + + | 2022-11-18 00:00 | Cholecalciferol (Vitamin | [facility] | | | D3) | | + + + + | 2022-11-15 00:00 | AZITHROMYCIN | [facility] | + + + + | 2022-11-15 00:00 | CEFPODOXIME PROXETIL | [facility] | + + + + | 2022-11-15 00:00 | GABAPENTIN | [facility] | + + + + | 2022-11-18 00:00 | GABAPENTIN | [facility] | + + + + | 2022-11-15 00:00 | DULOXETINE HCL | [facility] | + + + + | 2022-11-18 00:00 | DULOXETINE HCL | [facility] | + + + + | 2022-11-15 00:00 | Armodafinil | [facility] | + + + + | 2022-11-18 00:00 | Armodafinil | [facility] | + + + + | 2022-11-15 00:00 | Fesoterodine Fumarate | [facility] | + + + + | 2022-11-18 00:00 | Fesoterodine Fumarate | [facility] | + + + + | 2022-11-15 00:00 | ASPIRIN | [facility] | + + + + | 2022-11-18 00:00 | ASPIRIN | [facility] | + + + + | 2022-11-15 00:00 | PRAVASTATIN SODIUM | [facility] | + + + + | 2022-11-18 00:00 | PRAVASTATIN SODIUM | [facility] | + + + + Problems + + + + | date | description | facility | + + + + | 2022-11-13 00:00 | Multiple subsegmental | [facility] | | | pulmonary emboli without | | | | acute cor pulmonale | | + + + + | 2022-11-13 00:00 | Pneumonia due to COVID-19 | [facility] | | | virus | | [...] + + + | 2022-11-13 22:29 | ENT SURGEON (CURRENT) USE OF | [facility] | | | ANTICOAGULANTS | | + + + + | 2022-11-13 22:29 | OTHER ENT SURGEON (CURRENT) | [facility] | | | DRUG THERAPY | | + + + + | 2022-11-13 22:29 | DEPENDENCE ON SUPPLEMENTAL | [facility] | | | OXYGEN | | + + + + | 2022-11-18 00:00 | Nonspecific chest pain | [facility] | + + + + | 2022-11-18 00:00 | Weakness | [facility] | + + + + Procedures + + + + | date | description | facility | + + + + | 2022-11-13 00:00 | INTRODUCTION OF | [facility] | | | ANTI-INFLAM INTO PERIPH | | | | VEIN, PERC APPROACH | | + + + + | 2022-11-13 00:00 | ISOLATION | [facility] | + + + + | 2022-11-14 00:00 | INTRODUCE REMDESIVIR IN | [facility] | | | PERIPH VEIN, PERC, [...] + + + + | Result panel 103 | + + + + + + [...] 104 | + + + + + + [...] 105 | + + + + + + [...] 106 | + + + + + + [...] 107 | + + + + + + [...] 108 | + + + + + + [...] 109 | + + + + + + [...] 110 | + + + + + + [...] 111 | + + + + + + [...] 112 | + + + + + + [...] 113 | + + + + + + [...] 114 | + + + + + + [...] 115 | + + + + + + [...] 116 | + + + + + + [...] 117 | + + + + + + [...] 118 | + + + + + + [...] 119 | + + + + + + [...] 120 | + + + + + + [...] 121 | + + + + + + [...] 122 | + + + + + + [...] 123 | + + + + + + [...] 124 | + + + + + + [...] 125 | + + + + + + +---------+ + + | (unknown) | (no date) | (unknown) | [facility] | (no | (units | (unknown) | | | | [facility] | value) | unknown) | | | | | [facility] | | | | + + + + +---------+ + + + + | Result panel 126 | + + + + + + +---------+ + + | (unknown) | (no date) | (unknown) | [facility] | (no | (units | (unknown) | | | | [facility] | value) | unknown) | | | | | [facility] | | | | + + + + +---------+ + + + + | Result panel 127 | + + + + + + +---------+ + + | (unknown) | (no date) | (unknown) | [facility] | (no | (units | (unknown) | | | | [facility] | value) | unknown) | | | | | [facility] | | | | + + + + +---------+ + + + + | Result panel 128 | + + + + + + [...] 129 | + + + + + + [...] 130 | + + + + + + [...] 131 | + + + + + + [...] 132 | + + + + + + [...] 133 | + + + + + + [...] 134 | + + + + + + [...] 135 | + + + + + + +---------+ + + | (unknown) | (no date) | (unknown) | [facility] | (no | (units | (unknown) | | | | [facility] | value) | unknown) | | | | | [facility] | | | | + + + + +---------+ + + + + | Result panel 136 | + + + + + + [...] 137 | + + + + + + [...] 138 | + + + + + + [...] 140 | + + + + + + [...] 143 | + + + + + + [...] 144 | + + + + + + [...] 146 | + + + + + + [...] 148 | + + + + + + [...] 152 | + + + + + + [...] (unknown) | (no date) | (unknown) | [facility] | (no | (units | (unknown) | | | | | [facility] | value) | unknown) | | | | | | [facility] | | | | + + + + +---------+ + + Social History + + + + | date | description | facility | + + + + | 2022-11-15 00:00 | Unknown if ever smoked | [facility] | + + + + | 2022-11-18 00:00 | Unknown if ever smoked | [facility] | + + + + Vital [...]
--- OUTSIDE RECORDS SUMMARY | ~2022-11-19 | XMS | Continuity of Care Document ---
Demographics + + + | Address | [address] | | | [place] [address] | + + + | Preferred Language | Unknown | + + + | Marital Status | | + + + | Jainism Affiliation | Unknown | + + + | Race | White | + + + | Ethnic Group | Not or | + + + Author + + + | Author | [facility] | + + + | Organization | [facility] | + + + | Address | [address] | | | [place] [address] | + + + | Phone | | + + + Care Team Providers + + + + | Care Search Developer Name | Role | Phone | + [...] + | 2022-11-15 00:00 | | [facility] | | | Guaifenesin/Dextromethorpha | | | | n | | + + + + | 2022-11-18 00:00 | | [facility] | | | Guaifenesin/Dextromethorpha | | | | n | | + + + + | 2022-11-15 00:00 | CA CARB/VIT D3/MAG OX/ZN | [facility] | | | OXIDE | | + + + + | 2022-11-18 00:00 | CA CARB/VIT D3/MAG OX/ZN | [facility] | | | OXIDE | | + + + + | 2022-11-15 00:00 | APIXABAN | [facility] | + + + + | 2022-11-15 00:00 | BACLOFEN | [facility] | + + + + | 2022-11-18 00:00 | BACLOFEN | [facility] | + + + + | 2022-11-15 00:00 | LAMOTRIGINE | [facility] | + + + + | 2022-11-18 00:00 | LAMOTRIGINE | [facility] | + + + + | 2022-11-15 00:00 | ACETAMINOPHEN | [facility] | + + + + | 2022-11-18 00:00 | ACETAMINOPHEN | [facility] | + + + + | 2022-11-15 00:00 | Cholecalciferol (Vitamin | [facility] | | | D3) | | + + + + | 2022-11-18 00:00 | Cholecalciferol (Vitamin | [facility] | | | D3) | | + + + + | 2022-11-15 00:00 | AZITHROMYCIN | [facility] | + + + + | 2022-11-15 00:00 | CEFPODOXIME PROXETIL | [facility] | + + + + | 2022-11-15 00:00 | GABAPENTIN | [facility] | + + + + | 2022-11-18 00:00 | GABAPENTIN | [facility] | + + + + | 2022-11-15 00:00 | DULOXETINE HCL | [facility] | + + + + | 2022-11-18 00:00 | DULOXETINE HCL | [facility] | + + + + | 2022-11-15 00:00 | Armodafinil | [facility] | + + + + | 2022-11-18 00:00 | Armodafinil | [facility] | + + + + | 2022-11-15 00:00 | Fesoterodine Fumarate | [facility] | + + + + | 2022-11-18 00:00 | Fesoterodine Fumarate | [facility] | + + + + | 2022-11-15 00:00 | ASPIRIN | [facility] | + + + + | 2022-11-18 00:00 | ASPIRIN | [facility] | + + + + | 2022-11-15 00:00 | PRAVASTATIN SODIUM | [facility] | + + + + | 2022-11-18 00:00 | PRAVASTATIN SODIUM | [facility] | + + + + Problems + + + + | date | description | facility | + + + + | 2022-11-13 00:00 | Multiple subsegmental | [facility] | | | pulmonary emboli without | | | | acute cor pulmonale | | + + + + | 2022-11-13 00:00 | Pneumonia due to COVID-19 | [facility] | | | virus | | [...] + + + | 2022-11-13 22:29 | FEATHER BONER (CURRENT) USE OF | [facility] | | | ANTICOAGULANTS | | + + + + | 2022-11-13 22:29 | OTHER FEATHER BONER (CURRENT) | [facility] | | | DRUG THERAPY | | + + + + | 2022-11-13 22:29 | DEPENDENCE ON SUPPLEMENTAL | [facility] | | | OXYGEN | | + + + + | 2022-11-18 00:00 | Nonspecific chest pain | [facility] | + + + + Procedures + + + + | date | description | facility | + + + + | 2022-11-13 00:00 | INTRODUCTION OF | [facility] | | | ANTI-INFLAM INTO PERIPH | | | | VEIN, PERC APPROACH | | + + + + | 2022-11-13 00:00 | ISOLATION | [facility] | + + + + | 2022-11-14 00:00 | INTRODUCE REMDESIVIR IN | [facility] | | | PERIPH VEIN, [place], NEW [...] (unknown) | (no date) | (unknown) | [facility] | (no | (units | (unknown) | | | | | [place] | value) | unknown) | | | [...] | (unknown) | | | | | [place] | value) | unknown) | | | [...] | Unknown if ever smoked | [facility] | + + + + | 2022-11-18 00:00 | Unknown if ever smoked | [facility] | + + + + [...]
--- OUTSIDE RECORDS SUMMARY | 2022-11-19 12:18 | XMS ---
PreManage Notification: RY REDDY Security Singing Telegram Performer Events No recent Security Events currently on file CRITERIA MET - [facility] - 2 Visits in 30 Days CARE PROVIDERS There are no care providers on record at this time. Genny has no Care Guidelines for this patient. [facility] V[facility] (12 MO.) [facility] NOTE: Visits indicate total known visits. ED/C VISIT TRACKING (12 MO.) [facility] [place] [facility] COMPLAINT: - WEAKNESS 11/18/2022 10:28 [facility] [place] TYPE: Emergency COMPLAINT: - WEAKNESS, COVID+ [...] - Hyperlipidemia, unspecified - Hyperlipidemia, unspecified - snf (current) use of anticoagulants - snf (current) use of anticoagulants - Multiple sclerosis - Multiple sclerosis - Multiple subsegmental pulmonary emboli without acute cor pulmonale - Multiple subsegmental pulmonary emboli without acute cor pulmonale - Other chronic pain - Other chronic pain - Other ad terminal makeup operator (current) drug therapy - Other penitentiary (current) drug therapy - Overactive bladder - Overactive bladder - Pneumonia due to coronavirus disease 2018 - Pneumonia due to coronavirus disease 2018 - Tremor, unspecified - Tremor, unspecified - Unspecified osteoarthritis, unspecified site - Unspecified osteoarthritis, unspecified site [email or web address]
[2022-11-19 16:43] VITALS: BP 146/67
[2022-11-19 17:55] VITALS: BP 148/72
--- NOTE | 2022-11-19 18:30 | NUR ---
PERFORMED SWALLOW STUDY ON PT. PT WAS ABLE TO SWALLOW WATER FROM AN OPEN CUP AND STRAW WELL PUDDING. PT IS NOT ABLE TO SWALLOW ENOUGH TO TAKE PILLS WHOLE. RECOMMENDING PILLS CRUSHED WITH PUDDING. MD NOTIFIED ABOUT FEVER. VERBAL ORDERS GIVEN FOR TYLENOL SUPPOSSIROTY. PT STATED SHE WOULD LIKE TO PURSUE COMFORT CARE.
--- NOTE | 2022-11-19 19:24 | NUR ---
BEDSIDE REPORT RECEIVED FROM SONJA COLLAZO, PT RESTING QUIETLY WITH EYES CLOSED, HOB ELEVATED APPROX 30 DEGREES.
--- NOTE | 2022-11-19 19:57 | NUR ---
PLACED 2 LPM NC AND IS NOW 94%. CONTINUE TO MONITOR MENTAL STATUS SHE IS TIRED. NO CO2 INCREASE IN VENOUSE BLOOD.
--- NOTE | 2022-11-19 20:00 | NUR ---
UPDATE RECEIVED FROM RT CONCERNING PT'S OXYGEN SATS 88-90% AND ELEVATED RESP RATE, RT REPORTS PLACING OXYGEN ON AT 2 L/NC.
[2022-11-19 20:43] VITALS: BP 96/51
--- NOTE | 2022-11-19 21:08 | NUR ---
informed by perinatal specialist kavita that pt's blood pressure was soft, 96/51, map of 62. primary rn mack also aware. dr byrnes made aware per request of primary robin giron, no new orders received at this time. will conitnue to monitor. primary robin giron updated.
--- NOTE | 2022-11-19 21:55 | NUR ---
PT LAYING IN BED, EYES CLOSED, RESP RATE 28/MIN, PT AROUSABLE WITH TACTILE STIMULAS AND NAME, ANSWERS YES/NO TO QUESTIONS, THEN EYES CLOSE, VS REDONE, BP NOW 94/50, RESP RATE 28/MIN, ORAL CARE GIVEN AND PT ABLE TO SWOLLOW A FEW SIPS OF WATER, RT MEDS GIVEN CRUSHED WITH PUDDING, PT ABLE TO SWOLLOW, ASSESSMENT COMPLETED.
--- NOTE | 2022-11-19 21:55 | NUR ---
CHARGE NURSE REPORTS DR HAMPTON UPDATED ON PT'S LOWER BPS AND RESP RATE, NO NEW ORDERS RECEIVED, PLAN TO MONITOR U/O.
--- NOTE | 2022-11-19 22:40 | NUR ---
NEW BAG OF NS HUNG, CONTINUES AT 50ML/HR, NO URINE NOTED PER PURE WIC, CHUX IS DRY, ATTENDS PLACED, PT REPOSITIONED TO LEFT SIDE, IV SITE PATENT, BED IN LOW POSITION AND OXYGEN REMAINS IN PLACE AT 2L/NC.
--- NOTE | 2022-11-20 00:15 | NUR ---
PT REMAINS ASLEEP, OXYGEN SATS 91%, HR 76 AND RESP RATE 24/MIN, NO URINE NOTED PER PURE WIC, CHARGE NURSE NOTIFIED. PLAN TO TURN PT IN A FEW MINUTES.
--- NOTE | 2022-11-20 00:22 | NUR ---
RESTING WITH NO SIGNS OF DISTRESS AND MOVING AIR WELL. RR DOWN TO 24 FROM 32.
--- NOTE | 2022-11-20 01:00 | NUR ---
VS COMPLETED PER [facility] [employer] AND REVIEWED, BP IMPROVED AND CURRENTLY IS 117/61, AFEBRILE, SCANT URINE NOTED ONLY ON ACTUAL PURE WICK, PT REPOSITIONED UP IN BED AND BLADDER SCAN DONE, RESIDUAL 637ML, PT UNABLE TO VOID PER BEDPAIN, PT MORE ALERT AND COMMUNITIVE AT THIS TIME.
[2022-11-20 01:01] VITALS: BP 117/61
--- NOTE | 2022-11-20 01:05 | NUR ---
TC TO DR HAMPTON TO NOTIFY OF INABILITY TO VOID AND RESIDUAL PER BLADDER SCANNER, ORDERS RECEIVED TO INSERT ROJAS CATHETER.
--- NOTE | 2022-11-20 01:27 | NUR ---
PT EXPERIENCING URINARY RETENSION. 16 F. ROJAS INSERTED. ROJAS DRAINING WELL PER GRAVITY. PT TOLERATED INSERTION WELL. WILL CONTINUE TO MONITOR.
--- NOTE | 2022-11-20 03:07 | NUR ---
PT ASLEEP, RESP EVEN AND REG, 92% OXYGEN SATS, ROJAS EMPTIED FOR 700ML TORO URINE.
--- NOTE | 2022-11-20 04:15 | NUR ---
ASSESSMENT COMPLETED, SATS 94%.
--- NOTE | 2022-11-20 05:50 | NUR ---
PT RESTING QUIETLY, AWAKENS TO VOICE AND TOUCH, VS DONE AND TEMP 102.4 ORAL, VERIFY RECTALLY TO BE THE SAME, PT MEDICATED WITH TYLENOL 650MG SUPP, PT REPOSITIONED AND TURNED TO RIGHT SIDE, IV PATENT, FLUSHES WITHOUT LEAKAGE, ROJAS DRAINING TORO URINE.
[2022-11-20 05:53] VITALS: BP 154/77
--- NOTE | 2022-11-20 07:05 | NUR ---
DR HAMPTON MADE AWARE OF pt'S AM TEMP OF 102.4, pt RECEIVED PRN TYLENOL SUPP BY PRIMARY VALE BOWSER. NO NEW ORDERS RECEIVED AT THIS TIME. PRIMARY VALE BOWSER UPDATED.
--- NOTE | 2022-11-20 07:15 | NUR ---
RECEIVED REPORT FROM CIRCULAR CLERK RN. PT RESTING COMFORTABLY WITH EYES CLOSED. CALL LIGHT WITHIN REACH. RESPIRATIONS EVEN AND REGULAR.
[2022-11-20 09:58] VITALS: BP 138/64
--- NOTE | 2022-11-20 12:30 | NUR ---
SPOKE TO PTS DAUGHTER. PTS DAUGHTER TO COME TO THE HOSPITAL TO DISCUSS PLAN OF CARE WITH PT AND MD.
[2022-11-20 13:11] VITALS: BP 134/61
--- NOTE | 2022-11-20 13:15 | NUR ---
MD AT BEDSIDE WITH PT AND FAMILY MEMBERS. MD TO UPDATE ORDERS TO DNR/DNI BASED ON PLAN OF CARE MEETING.
--- NOTE | 2022-11-20 15:57 | NUR ---
ROUNDED ON PT. WHILE ATTEMPTING IV, PT WAS NOTABLY WARM. TOOK TEMPERATURE 102.8. GOT VERBAL ORDERS FROM MD FOR ORAL TYLENOL. NURSE MIGUELITO ATTEMPTED IV AT BEDSIDE.
[2022-11-20 17:14] VITALS: BP 138/60
--- NOTE | 2022-11-20 18:14 | NUR ---
ASSISTED PT WITH BRUSHING HER TEETH AND ORAL CARE. PT SITTING IN CHAIR COMFORTABLY. CALL LIGHT WITHIN REACH. NO FURTHER NEEDS VOICED.
--- NOTE | 2022-11-20 19:05 | NUR ---
BEDSIDE REPORT RECEIVED, PT SITTING UP IN CHAIR, ALERT AND SMILES WHEN SPOKEN TO, DENIES NEEDS AT THIS TIME, OXYGEN REMAINS IN PLACE.
--- NOTE | 2022-11-20 19:29 | NUR ---
RA TRIAL 89-91% REPLACED O2 AT 1 LPM.
[2022-11-20 21:52] VITALS: BP 146/67
--- NOTE | 2022-11-20 21:52 | NUR ---
VS DONE PER SHIRLENE COLLAZO, REPORTED PT HAD A TEMP OF 102.5 AT THIS TIME, PT MEDICATED WITH TYLENOL PER ORDER, RT MEDS GIVEN, PT REMAINS IN CHAIR, RESTING WITH EYES CLOSED.
--- NOTE | 2022-11-20 22:40 | NUR ---
PT REMAINS IN CHAIR, PT HAD LIGHT GREEN EMESIS, AIR WAY CLEAR, PT MEDICATED WITH ZOFRAN PER ZAMZAM COLLAZO.
--- NOTE | 2022-11-20 23:35 | NUR ---
PT RESTING QUIETLY IN CHAIR RESP EVEN AND REG, EYES CLOSED.
--- NOTE | 2022-11-20 23:55 | NUR ---
PT ASSISTED BACK TO BED WITH 2PA, GAIT WEAK AND UNSTEADY, BACK TO BED, REQUESTING WATER, HOB ELEVATED, PT TOOK APPROX 50 ML OF WATER WITHOUT EMESIS, ASSESSMENT COMPLETED, BED ALARM ON, SIDE RAILS UP X 4, BED LOW POSITION, OXYGEN ON AT 1L/NC.
--- NOTE | 2022-11-20 23:57 | NUR ---
Assisted patient from recliner back to bed. Patient had some emesis, changed her gown. Got her some fresh ice water and she took a couple sips. She complains of dry mouth and scratchy throat. Call light is within reach and nothing else is needed at this time.
--- NOTE | 2022-11-21 01:20 | NUR ---
VS CDMPLETED PER TALIB MATHEW AND REPORTED TO THIS RN, PT'S TEMP 100.4, PLAN TO MONITOR SINCE LAST TYLENOL WAS GIVEN AT 2240. PT RESTING QUIETLY IN BED.
[2022-11-21 01:21] VITALS: BP 138/71
--- NOTE | 2022-11-21 01:50 | NUR ---
PT APPEARS TO SLEEP, RESP EVEN AND REG, SAT 92%, HR 96. HOB ELEVATED APPROX 30 DEFREES.
[2022-11-21 05:05] VITALS: BP 142/74
--- NOTE | 2022-11-21 07:23 | NUR ---
RECEIVED REPORT FROM REGULATORY AFFAIRS ASSOCIATE RN. PT SLEEPING IN BED WITH EYES CLOSED. RESPIRATIONS EVEN AND REGULAR.
[2022-11-21 09:36] VITALS: BP 119/61
--- NOTE | 2022-11-21 12:31 | NUR ---
ASSISTED PT OFF THE BEDSIDE COMMODE. 2 PERSON ASSIST. PT BACK IN CHAIR. CALL LIGHT WITHIN REACH. NO FURTHER NEEDS VOICED.
--- NOTE | 2022-11-21 13:17 | NUR ---
Into check on patient. Patient adaly sitting up in the chair.Denies wanting to eat any lunch. Tried to leave it in there for her to snack on but she would like it removed. Patient has call light within reach. Denies other cares.
[2022-11-21 13:53] VITALS: BP 162/83
--- NOTE | 2022-11-21 15:35 | NUR ---
ROUNDED ON PT. ASSISTED PT BACK TO BED WITH RAILROAD SIGNAL AND SWITCH OPERATOR AND BRUSHED PTS TEETH. REASSESSED TEMPERATURE. NOTIFIED MD ABOUT PULSE AND BP. NO NEW ORDERS. CALL LIGHT WITHIN REACH AND NO FURTHER NEEDS VOICED.
[2022-11-21 17:39] VITALS: BP 136/72
--- NOTE | 2022-11-21 19:18 | NUR ---
BEDSIDE REPORT RECEIVED FROM SONJA COLLAZO, PT RESTING WITH EYES CLOSED, OXYGEN OFF AT THIS TIME, OXYGEN SAT 94%.
[2022-11-21 20:23] VITALS: BP 159/82
--- NOTE | 2022-11-21 20:23 | NUR ---
VS DONE PER BUBBA RN, VS REVIEWED, NOTED TEMP 100.3.
--- NOTE | 2022-11-21 21:14 | NUR ---
PT RESTING IN BED, ALERT WHEN SPOKEN TO, MEDICATED WITH TYLENOL FOR FEVER, ASSESSMENT COMPLETED, REMAINS ON ROOM AIR SATS 91%, PLAN TO MONITOR, IV PATENT IN RIGHT FOREARM, NS INFUSING WELL AT 30ML/HR, ROJAS DRAINING YELLOW URINE, CATH CARE GIVEN, PT WITH MOIST COUGH, NON PRODUCTIVE, PT REPOSITIONED TO RIGHT SIDE, HOB ELEVATED APPROX 35 DEGREES, SIDE RAILS X 4, BED ALARM ON.
--- NOTE | 2022-11-21 21:50 | NUR ---
PT AWAKE AND ALERT, DESIRES TO GO TO BR, UP TO VOID THEN BACK TO BED, ASSESSMENT COMPLETED, RT MEDS GIVEN, LIDOCAINE PATCH FROM BACK REMOVED, PT DENIES REQUESTS, BED ALARM ON, SIDE RAILS UP X3.
--- NOTE | 2022-11-21 22:52 | NUR ---
PT RESTING WITH EYES CLOSED, SATS REMAIN AT 88%, OXYGEN 1L/NC PLACED ON PT, PT DENIES REQUESTS AT THIS TIME.
--- NOTE | 2022-11-21 23:40 | NUR ---
PT AWAKE, TRYING TO REACH HER WATER, RN ASSIST DUE TO WEAK AND SHAKINESS IN ARMS, PT STATES THIS HAS BEEN HER BASELINE LAST FEW YEARS.
--- NOTE | 2022-11-22 01:15 | NUR ---
PT RESTING IN BED, WAVES TO NURSE WHEN SHE ENTERS, PT DENIES NEEDS, OXYGEN ON AND SATS 94%.
[2022-11-22 02:20] VITALS: BP 164/78
--- NOTE | 2022-11-22 02:25 | NUR ---
PT AWAKE, VS DONE, TEMP 101.5, DESIRES REPOSITIONING, TILTED TO LEFT SIDE,TAKING DRINKS OF WATER WITH ASSIST, ORAL CARE AND FACE WASHED, PT REQUEST O2 SAT PROBE BE CHANGED TO ANOTHER FINGER, DONE. ASSESSMENT COMPLETED
--- NOTE | 2022-11-22 02:45 | NUR ---
PT MEDICATED WITH TYLENOL PER ORDER FOR FEVER OF 101.5 PO, PT ASSISTED TO TAKE SIPS OF WATER, HOB ELEVATED APPRROX 30 DEGREES. BED ALARM ON, SIDE RAILS UP X 4.
--- NOTE | 2022-11-22 03:52 | NUR ---
CALL LIGHT ANSWERED. 2[place] TO [place]UL[place] [facility], WEAK. pt ABLE TO AMBULATE WITH MINIMAL ASSIST. REPOSITIONED IN BED WITH PILLOW UNDER LEFT HIP. HEEL PROTECTORS ON. IVF INFUSING WNL. 1L OXYGEN BY NC IN PLACE, SPO2 88% WITH AMBULATION. PRIMARY RN NIELS NOW IN ROOM. BED ALARM ON.
[2022-11-22 05:19] VITALS: BP 152/75
--- NOTE | 2022-11-22 05:44 | NUR ---
PT ASLEEP, RESP EVEN AND REG, SATS 93%, IV INFUSING WELL.
--- NOTE | 2022-11-22 05:45 | NUR ---
VS REVIEW AND NOTED TEMP DOWN TO 99.1 ORALLY
--- NOTE | 2022-11-22 06:25 | NUR ---
PT RESTING, AWAKE, RESP REG, WITHOUT REQUESTS.
--- NOTE | 2022-11-22 06:27 | NUR ---
PT ASLEEP, AWAKEN FOR RT MED, PT ABLE TO TAKE WITH SIPS OF WATER, PT RESTING WITH HOB ELEVATED.
--- NOTE | 2022-11-22 07:10 | NUR ---
RECEIVED REPORT FROM SCALEMAN RN. PT SLEEPING IN BED WITH EYES CLOSED. RESPIRATIONS EVEN AND REGULAR. BED ALARM ON AND CALL LIGHT WITHIN REACH.
[2022-11-22 08:57] VITALS: BP 164/81
--- NOTE | 2022-11-22 09:13 | NUR ---
PT ROJAS REMOVED. ASSISTED PT TO COMMODE TO VOID. PT DENIES PAIN. CALL LIGHT WITHIN REACH.
--- NOTE | 2022-11-22 09:30 | NUR ---
CM assessment completed. Pt has returned from [facility] as they feel they are unable to care for her at her level of needs. Pt has a catheter in place. Pt wanting placement to a SNF.
--- NOTE | 2022-11-22 10:30 | NUR ---
Spoke with Latoya. Asked where she would like to dc to. She would like to go to a SNF near her daughter near [place], [place]. Pt does not feel she can return to [facility] as she cannot assist herself. She asks I call her daughter, Lauren, and speak with her. Called Lauren and she is agreement for pt to be placed in her area for rehab. She lives in [place], [place]. She is unsure of which SNF she would like to use. Let her know I have placed pt two a couple places, [facility] and [facility]. She states she is fine with anyone at this time. Called and spoke with Dante at [facility]. They have two beds open and I will fax the chart.
--- NOTE | 2022-11-22 11:30 | NUR ---
ROUNDED ON PT. UP WITH PHYSICAL THERAPY. ASSISTED WITH MOVING PATIENT TO THE CHAIR. CHAIR ALARM PUT ON BAG LINER LIGHT WITHIN REACH. PT NOT UTILIZING CALL LIGHT THIS AM SO BED AND CHAIR ALARMS IN USE,
--- NOTE | 2022-11-22 11:30 | NUR ---
Received a call from Dante at [facility]. She is requesting further notes. Faxed her the note from 11/15 IP stay and the note from 11/18 ER visit. She is requesting documentation of when pt was diagnosed with covid. Let her know there is note in the 11/15 HP showing when pt tested +.
--- NOTE | 2022-11-22 12:46 | NUR ---
PT IN BED. STATED WAS COMFORTABLE. SHORT VISIT PT APPEARED TO BE FALLING ASLEEP. PRAYED FOR COMFORT AND HEALING.
[2022-11-22 13:47] VITALS: BP 158/85
[2022-11-22 17:46] VITALS: BP 155/76
--- NOTE | 2022-11-22 19:05 | NUR ---
BEDSIDE REPORT RECEIVED, PT RESTING IN BED, ALERT AND SMILING, WATCHING TV, WITHOUT REQUESTS AT THIS TIME.
--- NOTE | 2022-11-22 20:10 | NUR ---
BED ALARMING. THIS SCIENTIFIC MANAGER AND PRIMARY RN NIELS WENT IN THE ROOM AND HELPED PATIENT UP TO BEDSIDE COMMODE. PATIENT VOIDED 400ML YELLOW URINE. PATIENT IS MAITE IN BED. PATIENT IS SLOW STEADY FEET AND TOLERATED WELL.
[2022-11-22 20:17] VITALS: BP 149/83
--- NOTE | 2022-11-22 20:22 | NUR ---
PT SITTING ON EDGE OF BED WITH BED ALARMING, PT DESIRES TO GET UP TO VOID, PT 2PA TO BSC, VOIDED 400ML, LIGHT YELLOW URINE. FFW USED TO GET BACK TO BED, VS DONE AND PT AFEBRILE AT THIS TIME, ASSESSMENT COMPLETED, BED ALARM ON, SIDE RAILS UP X 4, OXYGEN REMAINS ON AT 1L/NC, IV PATENT WITH NS AT 30ML/HR.
--- NOTE | 2022-11-22 22:20 | NUR ---
PATIENT CALLED TO USE THE BATHROOM. 1 PA WITH WALKER TO BEDSIDE COMMODE AND BACK TO BED. MARCOS CARE ASSISTED. PULL UP ON. CALL LIGHT WITHIN REACH. BED ALARM ON FOR SAFETY.
--- NOTE | 2022-11-22 22:50 | NUR ---
PT ASLEEP, RESP EVEN AND REGULAR, VANCOMYCIN COMPLETED, RATE RETURNED TO 30ML/HR NS.
--- NOTE | 2022-11-23 00:42 | NUR ---
PT HEARD CALLING OUT FOR HELP, RN AND PHARMACEUTICAL REPRESENTATIVE TO BEDSIDE, PT DESIRES TO VOID, PT NOTED TO BE MORE SHAKY,PT STATES SHE IS COLD, UP TO BSC, TEMP TAKEN, 99.3 PT FEEL LIKE SHE IS SHIVERING, BACK TO BED, WARM BLANKET GIVEN AND PT MEDICATED WITH TYLENOL PER ORDER, PT RESTING, BED ALARM ON AND BED LOW POSITION. OXYGEN IN PLACE AND SATS 93%
--- NOTE | 2022-11-23 01:40 | NUR ---
PT AWAKE, WANTING TO GET SOME OF HER BLANKETS OFF DUE TO BEING TOO WARM AND ALSO SHE WOULD LIKE TO SIT ON EDGE OF THE BED FOR A WHILE, RN ASSIST AND STANDBY FOR A FEW MINUTES THEN PT READY TO LAY DOWN, BED ALARM TURNED BACK ON, PT RESTING.
--- NOTE | 2022-11-23 02:10 | NUR ---
PT RESTING QUIETLY, SATS 92% AT THIS TIME.
--- NOTE | 2022-11-23 03:20 | NUR ---
PT AWAKE, ASSISTED UP TO BSC TO VOID, BACK TO BED, ASSESSMENT COMPLETED, NEW BAG OF NS HUNG AND INFUSING WELL AT 30ML/HR ME RIGHT FOREARM.
--- NOTE | 2022-11-23 04:08 | NUR ---
PT ASLEEP, RESP EVEN AND REG, OXYGEN SATS 92%.
[2022-11-23 04:58] VITALS: BP 130/71
--- NOTE | 2022-11-23 04:58 | NUR ---
VS DONE, PT AFEBRILE, OXYGEN AT 2L/NC FOR SATS 88-90%
--- NOTE | 2022-11-23 06:40 | NUR ---
PT ASLEEP, RESP EVEN AND REG, SATS 92%.
--- NOTE | 2022-11-23 07:04 | NUR ---
REPORT RECEIVED FROM VALE BOWSER. PT RESTING IN BED WITH EYES CLOSED. RESPIRATIONS EVEN AND UNLABORED. OXYGEN SATURATION 93%ON 2L O2 BY NC. HEAD OF BED ELEVATED TO 30 DEGREES. BED ALARM ON. CALL LIGHT WITHIN REACH. BED RAILS UP.
--- NOTE | 2022-11-23 08:44 | NUR ---
MORNING ASSESSMENT AND MEDICAITON DUE. PT AWAKEN, IN BED WITH BREAKFAST TRAY IN FRONT OF HER. PT SHAKING. PT REPORTS SHE IS FEELING "REALLY COLD." TEMPERATURE ASSESSED = 101.1. TYLENOL GIVEN. PT DENIES PAIN. PT ALERT AND OREINTED TO ALL BUT EXACT EVENTS. PT FORGETFUL AT TIMES BUT INTERACTING AND ANSWERING QUESTIONS APPROPRATLY. GENERALIZED WEAKNESS CONTINUES. CORSE CRACKELS HEARD IN RIGHT LOWER LOB OF LUNGS. PT REMAINS ON 5L O2 BY NC WITH OXGYEN SATURATIONS ABOVE 92%. DRY COUGH SEEN. NO SPUTUM SEEN. PT DENEIS COUGING UP SPUTUM. HEAD OF BED REMAINS ELEVATED TO 32 DEGREES FOR ASPIRATION PRECAUTIONS. PT TAKE MEDICATIONS WITH NEED FOR THROAT CLEARING OR DIFFICLUTY SWALLOWING. MILD TACHYCARDIA HEARD WITH MISSED BEATS HEARD. HR 110-120'S. SKIN GENERALLY PALE AT THIS TIME. PT REPORTS POOR APPITITE. SHAKING TOO SEVERE TO DRINK FLUIDS. PT ASSISTED WITH DRINKING WATER. NO CATHETER IN PLACE. DPEENDS IN PLACE AND DRY AT THIS TIME. ALLEVYN IN PLACE OVER COCCYX, C/D/I AT THIS TIME. PT NOW RESTING WITH EYES CLOSED, RR OF 24. BED RAILS UP. CALL LIGHT WITHIN REACH. BED ALARM ON.
--- NOTE | 2022-11-23 09:07 | NUR ---
DR. HAMPTON CALLED AND UPDATED ON PT STATUS AND TEMPERUATRE. NO NEW ORDERS AT THIS TIME. PT CONTINUES RESTING IN BED WITH EYES CLOSED. HEAD OF BED AT 32 DEGREES. BED RAILS UP. CALL LIGHT WITHIN REACH. OXYGEN SATURATION 95% 2L O2 BY NC. PT ALLOWED TO REST.
[2022-11-23 09:45] VITALS: BP 151/80
--- NOTE | 2022-11-23 09:48 | NUR ---
PT WAVING AT NURSES, THIS RN TO ROOM. PT REPORTS SHE IS NOW "HOT" AND WANTS TO GET UP TO CHAIR. 1 PERSON ASSIST AND FWW UP TO RESTROOM. PT DOES NOT VOID OR HAVE BOWEL MOVEMENT. MARCOS CARE DONE. ALELVYN REMOVED AND NEW PHOTOGRAPHS OF GLUTEAL AREA TAKEN. NEW ALLEVYN APPLIED. 1 PERSON ASSIST UP TO CHAIR. OXGYEN SATURATIONS REMAINS 95% ON 2L O2 BY NC WITH HEART RATE NOW IN 90'S. PT DENIES PAIN AND NAUSEA. TEMPERATURE REASSESSED, NOW 99.7. NO ADDITIONAL REQUESTS OR COMPLAINTS. ICE WATER REFILLED. CALL LIGHT WITHIN REACH. CHAIR ALARM ON.
--- NOTE | 2022-11-23 10:00 | NUR ---
Received a call from pts daughter, Lauren. Updated I have not had a response from Dante at [facility] at this time. I will call them if I have not heard by 1100 or so.
--- NOTE | 2022-11-23 10:13 | NUR ---
PTS DAUGHTER, LAURA BADILLO, CALLED FOR UPDATED. LAURA BADILLO UPDATED ON PT STATUS AN PLAN OF CARE AND STATES HER QUESTIONS HAVE BEEN ANSWERED. CALL FORWARDED TO CASE MANAGEMENT SO DAUGHTER CAN RECEIVE UPDATE FROM [facility]. PT WORKING WITH PHYSICAL THERAPY. NO ADDITIONAL NEEDS AT THIS TIME.
--- NOTE | 2022-11-23 11:05 | NUR ---
HOURLY ROUNDING: PT UP TO CHAIR, TALKING WITH FRIENDS ON THE PHONE. PT DENIES PAIN AND NAUSEA. OXGYEN SATURATION 95% ON 2L O2 BY NC. ICE WATER REFILLED.PT DECLINES RESTROOM USE. NO ADDITIONAL REQUESTS OR COMPLAINTS. CALL LIGHT WITHIN REACH. CHAIR ALARM ON.
--- NOTE | 2022-11-23 11:38 | NUR ---
Called and spoke with Baldomero Mello. Dante from admissions is out until around 1 pm in a meeting. I was able to leave a message and ask if they have made a decision about accepting this pt.
--- NOTE | 2022-11-23 12:05 | NUR ---
THIS RN TO ROOM TO CHECK ON PT. 1 PERSON ASSIST WITH FWW UP TO RSETROOM. PT VOIDS WITH OUT ISSUE. PT REPORTS SHOULDER MUSCLE CRAMPS AND PAIN FROM THESE CRAMPS. POTASSIUM LABS NOTED. DR. HAMPTON CALLED AND NEW ORDERS GIVEN. ORDERS ENTERED, REPEAT BACK PERFORMED. RT TO BEDSIDE FOR BREATHING TREATMENT. MEDICATION GIVEN (SEE MAR). HEAT PACK PROVIDED FOR COMFORT. PT RESTING IN BED. NO ADDITIONAL REQUESTS OR COMPLAINTS. CALL LIGHT WITHIN REACH. BED RAILS UP. BED ALARM ON.
--- NOTE | 2022-11-23 12:37 | NUR ---
DR. HAMPTON CALLED AND UPDATED ON PTS MAGNESIUM LAB RESULTS. NEW ORDERS GIVEN. ORDERS ENTERED, REPEAT BACK PERFORMED. MEDICATION GIVEN (SEE MAR). IV TO RIGHT FORARM WITH NO S/S OF PHELBITIS PRESENT. PT EATING SMALL BITES OF LUNCH. RESTING IN BED WITH HEAD OF BED AT 40 DEGREES. PT REPORTS CRAMPS IN RIGHT SHOULDER CONTINUE TO COME AND GO AND THE HEAT PACK "HELPS." NO ADDITIONAL REQUESTS OR COMPLAINTS. CALL LIGHT WITHIN REACH. BED RAILS UP. BED ALARM ON.
--- NOTE | 2022-11-23 13:46 | NUR ---
PT WAS IN BATHROOM. UNABLE TO VISIT.
--- NOTE | 2022-11-23 13:49 | NUR ---
THIS RN TO ROOM TO CHECK ON PT. PT UP WITH SNUFF DRIER TO RESTROOM AND THEN BACK TO BED, 1 PERSON ASSIST AND FWW. PT REPORTS SHOULDER CRAMPING IS "BETTER." PT REPORTS SHE WOULD LIKE TO REST A BIT LONGER AND THEN AGREES TO A WALK. PT DENEIS ADDITONAL REQUESTS OR COMPLAINTS. OXGYEN SATURATIONS 95% ON 2L O2 BY NC. CALL LIGHT WITHIN REACH. BED RAILS UP. BED ALARM ON.
[2022-11-23 13:53] VITALS: BP 138/73
--- NOTE | 2022-11-23 14:30 | NUR ---
AFTERNOON ASSESSMENT DUE. PT RESTING IN BED, AWAKE AND ALERT. PT DENIES PAIN AND NAUSEA AND REPORTS RIGHT SHOULDER CRAMPING HAS RESOLVED. PT DENIES MUSCLE CRAMPS IN OTHER PARTS OF THE BODY. PT DENIES LIGHT HEADEDNESS OR PALPITATIONS. PT ALRET AND OREINTED TO ALL BUT EVENTS. FORGETFUL AT TIMES, EASILY REDIRECTABLE WITH WORDS AND REORIENTATION. PT UP TO WHEELCHAIR WITH 1 PERSON ASSIST AND FWW. AMBUALTES INTO CHO AND TO WHEELCHAIR. WHEELCHAIR RIDE OUTSIDE TO GARDENT AND BACK TO ROOM. PT AMBULATES BACK FROM CHO TO BED. PT DECLINES TIME UP TO CHAIR AT THIS TIME STATING SHE IS TIRED FROM THE ACTIVITY. LUNG SOUNDS COURSE IN BILATERAL LOWER LOBES, MORE SO ON RIGHT THAN LEFT. I.S. USE DEMONSTRATED WITH PT REACHING 750-1000ML X5. COUGH SEEN WITH I.S. USE, NO SPUTUM SEEN. PT REMAINS ON 2L O2 BY KS WITH OXGYEN SATRAUTIONS 92-95%. HEART TONES REGULAR. ABDOMEN SOFT AND NON TENDER. ALLEVYN TO COCCXY REMAINS IN PLACE. MILD TREMOR IN ARMS CONTINUES. PT CONTINANT SO FAR THIS SHIFT. DPEENDS IN PLACE FOR SECURITY. NO CATHETER IN PLACE. PT ANSWERS, ASKS QUESTIONS AND INTERACTS APPORPRATLY WHILE OUTSIDE. NO ADDITIONAL NEEDS AT THIS TIME. PT RESTING IN BED. BED RAILS UP. CALL LIGHT WITHIN REACH. BED ALARM ON.
--- NOTE | 2022-11-23 14:52 | NUR ---
Received a call from Dante at [facility]. They do not feel they can accept this pt as they do not have a private room at this time. Pt is 20 days out for + covid. They do not want to place pt with a covid pt or with a noncovid pt at this time. Pt has had a fever last night. They are concerned as they do not have a private rm. They are declining this pt. I spoke with pt this am and again now and she would be willing to stay in [place]. Per ERIKA at [facility], they may have a bed open tomorrow. Dr Nicolas updated. He does not feel pt is having covid symptoms but needs to use her IS. Face sheet, H&P, progress notes, PT/OT notes, labs, imaging, nurses notes, med list faxed to ERIKA for medical reviewer.
--- NOTE | 2022-11-23 15:48 | NUR ---
THIS RN TO ROOM TO CHECK ON PT. PT FINISHED WITH SHOWER AND BACK TO BED. PT SHAKING WITH CHILLS. WARM BLANKETS TRIED AND PT CONTINUES SHAKING. HEART RATE 100-120, TEMPERATURE ASSESSED = 101.5. OXGYEN SATURATION 82% ON 2L O2 BY NC. OXYGEN INCREASED TO 4L O2 BY NC TO MAINTAIN OXGYEN SATURATIONS ABOVE 89%. RT TO BEDSIDE FOR BREATHING TREATMENT, UPDATED ON PT STATUS. TYELNOL GIVEN. PT REMAINS IN BED, HEAD OF BED ELEVATED TO 36 DEGREES. NO ADDITONAL NEEDS AT THIS TIME. BED RAILS UP. CALL LIGHT WITHIN REACH. BED ALARM ON.
[2022-11-23 15:50] VITALS: BP 156/88
--- NOTE | 2022-11-23 17:05 | NUR ---
CRITICAL LAB RECEIVED. DR. HAMPTON CALLED AND UPDATED. NEW ORDERS GIVEN, ENTERED AND REPEAT BACK PERFORMED. NEW IV FLUIDS STARTED. DR. HAMPTON TO BEDSIDE AND GIVES VEBAL ORDERS FOR NUTRITION CONSULT AND ENSURE WITH MEALS. ENSURE PROVIDED. PT UPDATED ON PLAN OF CARE. CONTINUES TO BE CONFUSED. PT CONTINEUS TO REQUIRE 6L O2 BY NC TO MAINTAIN OXGYEN SATURATIONS ABOVE 90%, CURRENTLY 93%. PT BOOSED UP IN BED. ENCORUAGED TO EAT DINNER. ENSURE MILKSHAKE PROVIDED. LAB TO BEDSIDE TO DRAW CULTURES. AWAITING CULTURES TO START ABX. SHAKING CHILLS HAVE STOPPED. TEMPERATURE NOW 99.3. NO ADDITONAL NEEDS AT THIS TIME. CALL LIGHT WITHIN REACH. BED RAILS UP. BED ALARM ON.
--- NOTE | 2022-11-23 17:30 | NUR ---
PTS DAUGHTER MIKAELA UPDATED BY PHONE. PT CONTINUES DRINKING ENSURE MILKSHAKE. NO ADDIITONAL NEEDS. IV ABX GIVEN. BED RAILS UP CALL LIGHT WITHIN REACH.
--- NOTE | 2022-11-23 17:31 | NUR ---
PT HERE FOR PNEUMONIA. PT UP TODAY WITH 1 PERSON ASSIST AND FWW TO RESTROOM, CHAIR AND ARROUND ROOM. PT TOLERATING SOFT DIET WITH MINMAL APPITTITE, STORE PLANNER CONSUTLATION PLACED, ENSURE PROVIDED. FEVERES X2 THIS SHIFT, RESOLVES WITH TYELNOL. NEW ABX ORDERS GIVEN. 2ND IV STARTED. IV FLUIDS NOW AT 75ML/HR. BLOOD CULTURES AND LACTIC ACID DRAWN. REPEAT CHEST X-RAY PERFOMRED. PT NOW ON 6L O2 BY NC TO MAINTAIN OXGYEN SATURATIONS ABOVE 90%. LUNG SOUNDS CORSE IN BASES ESPICALLY RIGHT SIDE. SCHEDULED NEBULIZER TX TIVEN. DRY COUGH CONTINUES. ALLEVYN TO COCCYX CHANGED WITH NEW PICURES TAKEN AND ON CHART. FAMILY UPDATED BY PHONE. PT VOIDING QUANITYT SUFFICIENT. PT USES CALL LIGHT INCONSISTANTLY, BED/CHAIR ALARM FOR SAFETY. SHOWER THIS SHIFT.
[2022-11-23 18:18] VITALS: BP 138/63
--- NOTE | 2022-11-23 18:24 | NUR ---
THIS RN TO ROOM TO CHECK ON PT. VITAL SIGNS STABLE ALTHOUGH TEMPERATURE REMAINS ELEVATED, NOW 100.1. I.S USED REACHING [id number] X10, PT ALSO UP TO BEDSIDE COMODE WITH 1 PERSON ASSIST. TEMPERTURE REASSESSED AND REMAINS 100.0 TAKEN ORALLY. PT WAS ABLE TO FINISHE A FULL VANILLA ENSURE. PT DENIES PAIN AND NAUSE. NO SHAKING CHILLS AT THIS TIME. MARCOS CARE DONE. DEPENDS DRY. 1 PERSON ASSIST BACK TO BED. PT WATCHING NEWS ON TV. HEAD OF BED ELEVATED TO 30 DEGREES. BED RAILS UP. CALL LIGHT WITHIN REACH. BED ALARM ON.
--- NOTE | 2022-11-23 19:15 | NUR ---
shift report received from daysalft robin sams at bedside, pt awake and resting in bed. on 6lnc w/ humidification, rr even and nlabored. no distress noted. iv sites x2 wnl, iv fluids and iv abx infusing as directed. bed alarm on for safety, call light in reach.
--- NOTE | 2022-11-23 20:34 | NUR ---
dr byrnes at rn station, made aware of result of second lactic, now normal at 2.0. md also aware pt's potassium returned to wnl and is now 4.0. verbal order read back, okay to hold remaining 40meq po potassium. storage battery charger bailey aware and also present for conversation.
[2022-11-23 20:48] VITALS: BP 164/78
--- NOTE | 2022-11-23 21:15 | NUR ---
ASSESSMENT COMPLETE, SCHEDULED MEDS GIVEN-SEE EMAR. IV SITES X2 WNL, IV VANCO INFUSING TO LEFT WRIST DIRECTED. FLUSHES EASILY. BASELINE INTERMITTENT TREMORS NOTED, HX MS. CRACKLES NOTED IN BILATERAL LOWER LOBES, pt REPOSITIONED IN BED AND ASPIRATION PRECATIONS IN PLACE. 6LNC NOTED, CPOX AT BEDSIDE. pt JOANNE ADDITIONAL NEEDS OR CONCERNS. CALL LIGHT IN REACH.
--- NOTE | 2022-11-23 22:06 | NUR ---
DR HAMPTON AT RN STATION AND UPDATED ON pt's CRACKLES IN BILATERAL LOWER LOBES AND pt's RESTLESSNESS/TREMORS IN BED AND FORGETFULNESS, MD STATES "THAT'S DEMENTIA". REGARDING THE CRACKLES, MS STATES, "IT COMES AND GOES". NO NEW ORDERS RECEIVED AT THIS TIME, CALL LIGHT IN REACH. BED ALARM ON.
--- NOTE | 2022-11-23 22:22 | NUR ---
pt CALLING OUT HELP. "I NEED MY PANTS CHANGED". ASKED IF pt VOIDED, "NO, BUT I NEED TO". 1PA WITH FWW TO BSC FOR VOID AND BACK TO BED. WITH AMBULATION pt REQUIRES 14L OXYGEN BY OXYMASK TO MAINTAIN SATURATIONS >90%. SATURATIONS DROP TO 81% WITH 7L OXYGEN BY NC IN PLACE. BACK IN BED. WARM TO TOUCH. TEMPERATURE ASSESSED, 103.1 ORAL TEMP. PRN TYLENOL ADMINISTERED, BLANKETS REMOVED. BED ALARM ON. SPO2 TITRATED BACK TO 5L OXYGEN BY OXYMASK AFTER SEVERAL MINUTES OF REST, SPO2 94%. pt MOUTH BREATHING. EYES CLOSED AT THIS TIME. BED ALARM ON.
--- NOTE | 2022-11-23 23:13 | NUR ---
ROUNDED ON pt DUE TO CPOX ALARMING, pt REMOVED OXYMASK FROM FACE. OXYMASK BACK IN PLACE, pt EDUCATED TO LEAVE MASK IN PLACE. COOL RAG APPLIED TO CHEST/FACE FOR FEVER, TEMP SLOWING COMING DOWN. WILL CONTINUE TO MONITOR. BED ALARM ON AND CALL LIGHT IN REACH.
[2022-11-24 00:37] VITALS: BP 151/85
--- NOTE | 2022-11-24 00:40 | NUR ---
scheduled iv abx infusing as directed, iv site to right forearm leaking and painful when flushed. iv dc'd catheter tip intact. new iv placed by chargemaster specialist bailey, 20g right forearm. pt tolerated well. no acute cahnges to assessment, crackles remain noted in bilateral lower lobes, clear/diminished upper lobes. no distress noted, rr in the low to mid 20's. call light in reach, bed alarm on for safety.
--- NOTE | 2022-11-24 00:45 | NUR ---
1 PA TO BEDSIDE COMMODE AND BACK TO BED. INFORMATION ASSURANCE SPECIALIST AND PRIMARY RN WERE IN THE ROOM.
--- NOTE | 2022-11-24 02:10 | NUR ---
pt RECENTLY RETURNED FROM [facility] [place] TO VOID AND NOW BACK IN BED. pt EDUCATED AND DEMONSTRATED USE OF BOTH IS AND ACAPELLA, pt REACHED THE 750-1000 MARKER. BLADDER SCAN RESULT POST VOID 24MLS. WILL CONTINUE TO MONITOR.
--- NOTE | 2022-11-24 04:06 | NUR ---
ROUNDED ON pt, pt RESTING IN BED WITH EYES CLOSED. HOB REMAINS ELEVATED AND ASPIRATION PRECAUTIONS REMAIN IN PLACE. 6L OXYMASK IN PLACE, RR EVEN AND UNLABORED. NO DISTRESS NOTED. CPOX AT BEDSIDE SHOWS 93% SPO2, HR LOW TO MID 90'S. BED ALARM ON AND CALL LIGHT IN REACH.
--- NOTE | 2022-11-24 04:40 | NUR ---
IV PUMP ALARMING, ISSUE RESOLVED. IV SITES X2 REMAINS WNL. MILD TREMORS NOTED, HX MS. 6L OXYMASK REMAINS IN PLACE, pt DENIES NEEDS OR CONCERNS. CALL LIGHT IN REACH.
[2022-11-24 05:34] VITALS: BP 166/84
--- NOTE | 2022-11-24 06:03 | NUR ---
prn tylenol given for elevated temp-see emar. increased tremors noted, tylenol crushed and given in applesauce.will monitor. pt encouraged to cough, deep breath, and use is/acapella. bed alarm on and call light in reach.
--- NOTE | 2022-11-24 07:10 | NUR ---
scheduled iv abx infusing as directed, iv site wnl. spoke to melissa via telepharmacy regarding timing of medication. per melissa, okay to give medication as scheduled, no need to retime medication.
--- NOTE | 2022-11-24 07:15 | NUR ---
REPORT RECEIVED FROM NIGHT RN - ASSUMING CARE OF PT. PT AWAKE IN BED SITTING WITH HOB ELEVATED, OXY MASK IN PLACE AND CPOX. PT DENIES NEEDS AT THIS TIME. CALL LIGHT IN REACH.
--- NOTE | 2022-11-24 08:10 | NUR ---
Spoke with pts daughter and updated pt was declined by [facility]. I sent the chart to [facility] last night. Daughter is in agreement with this. I also asked if family wanted pt to be a DNR. She states this was discussed on admission and they all agreed, including the pt, she is a DNR. I will ask Dr. Nicolas to complete POLST. Received text from ERIKA they are reviewing this pts chart for [facility].
--- NOTE | 2022-11-24 08:30 | NUR ---
Pt was discussed in [address] Nicolas was notified by nursing pt spiked T of 103. He will order further labs. At this point he still plans on pt dc to [facility] tomorrow. I will contact [facility] to confirm they are accepting this pt.
--- NOTE | 2022-11-24 08:33 | NUR ---
PT BOOSTED UP IN BED BY THIS CLOTHING PRESSER AND RN. PT SAT UP FOR BREAKFAST. NO NEEDS. CALL LIGHT WITHIN REACH
--- NOTE | 2022-11-24 08:45 | NUR ---
ASSESSMENT COMPLETE - PT REQUIRE UP TO 8L VIA NC WHILE AMBULATING SHORT DISTANCE FROM BED TO CHAIR. STRONG CRACKLES NOTED IN BILATERAL LOWER LUNG ELIZABETH POSTERIORLY. PT ALERT AND ORIENTED X3, SEEMS FORGETFUL TO WHAT SHE IS "WANTING TO DO WITH THE DAY", FIDGITY WITH TRAY ITEMS. ABLE TO FEED SELF AND PULL DOWN OWN ATTENDS WHEN ASSISTED TO BSC. PT COMPLAINS OF MUSCLE CRAMPS IN NECK, HEAT PACK PROVIDED. CHAIR ALARM ON AND CALL LIGHT IN REACH, DOOR OPEN CLOSE TO RN STATION.
--- NOTE | 2022-11-24 09:00 | NUR ---
NOtified by ERIKA they will accept this pt tomorrow. He will call later with a time for admission.
--- NOTE | 2022-11-24 09:56 | NUR ---
RT COLLECTED RAPID COVID 19, RSV, AND FLU SWAB PER DR REQUEST USING IN HOUSE LAB WITH NO COMPLICATIONS AT THIS TIME.
[2022-11-24 10:31] VITALS: BP 149/80
--- NOTE | 2022-11-24 10:31 | NUR ---
phone call placed to desirae simmons. front office spec ladjessica said that pt was tested for covid on 11/17 and was positive. I asked for the notes and results from this and the lady stated "the rn that did the test is out until the ". I let desirae know that we need the notes today. the lady stated " we do not have any notes from it". I let her know i will let my supervisor sample preparation know the and someone will give them a call.
--- NOTE | 2022-11-24 10:41 | NUR ---
PT REMAINS UP IN CHAIR - SPO2 92% ON 5L NC. CALL LIGHT IN REACH, PT DENIES NEEDS AT THIS TIME.
--- NOTE | 2022-11-24 11:26 | NUR ---
PATIENT IN RECLINER WITH TV ON. SHE IS ALERT. SHE SAID HER APPETITE HAS NOT BEEN VERY GOOD FOR A FEW DAYS. SHE DOESN'T ALWAYS LIKE THE FOOD SHE GETS. WE HAVE IN THE MEAL IQ THAT SHE DOESN'T LIKE EGGS OR MILK. I ADDED TO SEND HOT CHOCOLATE FOR BREAKFAST AND ENSURE CLEAR AT LUNCH AND DINNER. SHE IS MISSING A FEW TEETH AND NOTES THAT SHE SOMETIMES HAS PROBLEMS SWALLOWING. CURRENTLY SHE IS ON A SOFT & BITE SIZED DIET. SHE IS NOT SURE IF SHE HAS LOST ANY WEIGHT. SHE CAN FEED HERSELF. SHE IS NOT A BIG MEAT EATER, LIKES YOGURT AND ICE CREAM. ENCOURAGED PATIENT TO TRY EATING MORE. WILL CONTINUE TO MONITOR.
--- NOTE | 2022-11-24 11:38 | NUR ---
Received a text from ERIKA at [facility]. He would like pt to arrive around 1 pm tomorrow. He then called and stated they have a pt discharging tomorrow. He also requests documentation of when pt tested + for covid. This infor was in the chart and I texted him covid + documentation from [facility] on 11/03/22. I updated Dr. Nicolas pt could dc today if he feels pt is ready. He now states pt will not be able to dc. She retested for covid and remains +. He feels she needs to be treated with remdesevir and can dc when she is 24 hrs afebrile. ERIKA updated. He states he will hold a bed through Sat.
--- NOTE | 2022-11-24 12:16 | NUR ---
RN ROUNDING ON PT- RESTING IN CHAIR RECEIVING NEB TX BY RT. ABLE TO TITRATE O2 DEMANDS DOWN TO 3L WHILE RESTING IN CHAIR.
--- NOTE | 2022-11-24 13:00 | NUR ---
RN NOTIFIED BY [facility] THAT PT CPOX ALARMING - PT NOTED TO BE IN LOW 80'S SITTING IN CHAIR WITH RAPID BREATHING AND RIGORS. 02 TITRATED TO 8 L. NEW ONSET R SHOULDER PAIN. ORAL TEMP 102.1. HR 120-130'S. PT UNABLE TO SPEAK FULL SENTENCES. DEEP CALM BREATHING ENCOURAGED BY RN, PT UNABLE TO FOLLOW THESE DIRECTIONS. 650MG TYLENOL ADMINISTERD. DR. HAMPTON CALLED AND NOTIFIED OF ASSESSEMENT. RN EXPRESSES CONCERN FOR RISK OF ADDITIONAL PE R/T COVID DIAGNOSIS AND RECENT ADMISSION HISTORY FOR THIS. VERBAL ORDER RECEIVED FOR CHEST CT. MD ENTERED ADDITIONAL ORDERS TO RESTART DECADRON AND REMDISIVIR.
--- NOTE | 2022-11-24 13:07 | NUR ---
PT IN CHAIR. PT APPEARED TIRED BY SHORT VISIT. DECLINED NEWSPAPER DISTRIBUTOR SUPERVISOR VISIT FOR THIS AFTERNOON, STATING SHE WAS,"ALL DONE IN FOR THE DAY." PRAYED.
--- NOTE | 2022-11-24 14:01 | NUR ---
PT CALL LIGHT ANSWERED BY RN. PT NEEDED TO USE BSC. VALE FARLEY ASKED I CUSTOMER ENGAGEMENT SPECIALIST TO HELP PT, I CUSTOMER ENGAGEMENT SPECIALIST IN ROOM TO HELP PT TO BSC
--- NOTE | 2022-11-24 14:09 | NUR ---
pt pulse ox beeping while pt is on bsc. pt hunched over almost falling off of the commonde. rn in room w me to assist. pt oxy mask put on. pt desatting to low 80's. pt assist back in bed. brief put on. call light within reach
[2022-11-24 14:23] VITALS: BP 151/87
--- NOTE | 2022-11-24 15:12 | NUR ---
PT CONTINUES TO REQUIRE 8L VIA OXYMASK TO MAINTAIN ADEQUATE SPO2 - INCREASE IN CONFUSION/PULLING MASK OFF. ASSESSMENT UNCHANGED FROM PREVIOUS. NOTIFIED OF CT RESULTS OF NEW PE.
--- NOTE | 2022-11-24 15:16 | NUR ---
I REEL AND REWINDER OPERATOR TURNED AROUND AND SAW PT TRYING TO CRAWL OUT OF BED. PT NEEDS TO USE BSC. PT UP TO BSC 1 PA. PT BACK TO BED. NO NEEDS. CALL LIGHT WITHIN REACH. BED ALARM SET
--- NOTE | 2022-11-24 16:13 | NUR ---
PT VISITOR UP TO RN STATION. PT VISITOR STATED PT NEEDED TO USE RESTROOM. PT UP TO BSC BY THIS MEDICAL LEGAL INVESTIGATOR AND RN. PT BACK TO BED AFTER VOIDING. NO NEEDS. ALARM SET. CALL LIGHT WITHIN REACH
--- NOTE | 2022-11-24 16:15 | NUR ---
PT ASSISTED UP TO BSC TO VOID - SP02 82% ON 8 02 VIA NC. PT BACK TO BED WITH RT IN ROOM TO CHANGE O2 DELIVERY SET UP.
[2022-11-24 17:37] VITALS: BP 152/87
--- NOTE | 2022-11-24 17:59 | NUR ---
PT SITTING UP IN BED EATING DINNER, ABLE TO SELF FEED. 02 DEMAND STABLE ON HIGHFLOW NC WITH HUMIDITY AT 5L 02.
--- NOTE | 2022-11-24 19:34 | NUR ---
PATIENT SET UP IN HER CHAIR FOR BREAKFAST.
--- NOTE | 2022-11-24 19:41 | NUR ---
REPORT RECEIVED FROM DAY SHIFT RN. PT LYING IN BED RESTING WITH EYES CLOSED. RESPIRATIONS EVEN. WHITE BOARD UPDATED. CALL LIGHT IN REACH.
--- NOTE | 2022-11-24 20:25 | NUR ---
DR CRISOSTOMO AT RN STATION. AWARE THAT pt's POTASSIUM WITH AM LABS ARE 3.2 AND PER EMAR pt RECEIVED NO REPLACEMENT TODAY. NO NEW ORDERS REGARDING POTASSIUM REPLACEMENT RECEIVED, TO PLACE ORDERS FOR AM LABS TO REASSESS. PRIMARY RN LAUREN MADE AWARE.
[2022-11-24 20:35] VITALS: BP 157/89
--- NOTE | 2022-11-24 21:07 | NUR ---
PT UP TO BSC WITH FWW AND 1PA TO VOID. BACK TO BED, LAWRENCE FAIR. PT REPORTS SOB WITH ACTIVITY. SpO2 BRIEFLY 88% UPON RETURNING TO BED. HFNC AT 5L/NC IN PLACE. HR ONE TEENS WITH ACTIVITY. PT ABLE TO RECOVER QUICKLY WITH REST. EVENING ASSESSMENT COMPLETE. CRACKLES AUSCULTATED IN BILATERAL LUNG BASES. SCHEDULED MEDS ADMIN PER EMAR. PT DENIES PAIN OR NAUSEA. PT DOES REPORTS MUSCLE "SPASMS" IN RIGHT SHOULDER/ARM. SPOKE TO MD WHILE ON THE FLOOR. CHRONIC MEDS RESTARTED. PT A&O X 3. DENIES QUESTIONS OR CONCERNS. CALL LIGHT IN REACH. BED ALARM FOR SAFETY.
--- NOTE | 2022-11-24 22:37 | NUR ---
PT RESTING IN BED WITH EYES CLOSED. RESPIRATIONS EVEN. SpO2 LOW 90'S WITH HFNC IN PLACE. HR 80'S. BED ALARM FOR SAFETY. CALL LIGHT IN REACH.
--- NOTE | 2022-11-24 22:50 | NUR ---
PT UP TO BSC WITH FWW AND PARACHUTE MENDER ASSIST TO VOID. PT INCONTINENT OF URINE WELL. STAFF ASSIT WITH MARCOS CARE. CLEAN ATTENDS IN PLACE. BACK TO BED, LAWRENCE FAIR. PT WITH DRY COUGH. SpO2 DOWN TO MID 70'S WITH ACTIVITY. HFNC TITRATED TO 7L/NC. PT RECOVERED TO LOW 90'S AFTER REST. HOB ELEVATED. SIPS OF WATER PROVIDED. NO FURTHER NEEDS. BED ALARM FOR SAFETY.
--- NOTE | 2022-11-25 00:35 | NUR ---
IV PUMP ALARMING. ISSUE RESOLVED. PT RESTING IN BED WITH EYES CLOSED. RESPIRATIONS EVEN. SpO2 96% WITH 7L/HFNC. OXYGEN TITRATED BACK TO 5L. HR 80'S. BED ALARM ON.
--- NOTE | 2022-11-25 01:53 | NUR ---
PT RESTING WITH EYES CLOSED IN BED. RESPIRATIONS EVEN. SpO2 96% ON 5L/HFNC. HR 90'S.
--- NOTE | 2022-11-25 03:30 | NUR ---
PT RESTING WITH EYES CLOSED. RESPIRATIONS EVEN. CALL LIGHT IN REACH. BED ALARM FOR SAFETY.
[2022-11-25 05:04] VITALS: BP 130/77
--- NOTE | 2022-11-25 05:24 | NUR ---
CALL LIGHT ANSWERED. PT UP TO BSC WITH FWW AND 1PA TO VOID. STAFF ASSIST WITH MARCOS CARE. CLEAN ATTENDS IN PLACE. BACK TO BED. ASSISTED TO REPOSITION. HOB ELEVATED. SIPS OF WATER PROVIDED. SpO2 DOWN TO MID 80'S WITH ACTIVITY. INCREASED RESPIRATIONS NOTED. OXYGEN TITRATED TO 9L/HFNC. PT ABLE TO RECOVER AFTER A FEW MINUTES OF REST. OXYGEN BACK TO 5L. VS AND I&O COMPLETE. PT AFEBRILE. NO FURTHER NEEDS. CALL LIGHT IN REACH. BED ALARM FOR SAFETY.
--- NOTE | 2022-11-25 07:44 | NUR ---
Patient resting in bed this morning with eyes shut. O2 sats at 88% on 5L HiFlow, increased O2 needs to 6L Hiflow and sats improved to 92%. Patients breathing is labored. IV fluids infusing as ordered. Will continue to monitor oxygen needs. Airborne precautions put in place for COVID+, due to symptoms. Currently all patient care needs met, call light within reach, bed alarm in place, bedrails x2 in place. Patient allowed to rest at this time.
[2022-11-25 09:22] VITALS: BP 127/72
--- NOTE | 2022-11-25 09:57 | NUR ---
Assisted Pt SBA FWW to from chair to bedside commode. RN moved oxygen up to 9 LPM. Oxygen staying within normal range. Ambulated to bed. Call light left in reach. No other needs expressed by Pt.
--- NOTE | 2022-11-25 12:26 | NUR ---
PATIENT WORKED WITH PT TODAY. UP IN CHAIR FOR LUNCH, FATHER CAME TO PRAY WITH HER PRIOR TO EATING. FOOD SETUP FOR PATIENT. DENIES PAIN AT THIS TIME. CALL LIGHT WITHIN REACH. ALL PATIENT CARE NEEDS MET AT THIS TIME.
--- NOTE | 2022-11-25 13:06 | NUR ---
PT IN BED. TALKING SEEMED TO BE AN EFFORT. PT FEEL ASLEEP WHEN I LEFT TO GET HER PRAYER SHAWL. PRAYED QUIETLY AND LEFT PRAYER SHAWL. NOTIFIED RN THAT I HAD DONE SO IN CASE PT HAD QUESTIONS UPON AWAKENING. REQUESTED LOGISTICS ASSISTANT VISIT.
[2022-11-25 13:27] VITALS: BP 145/81
[2022-11-25] MEDS ORDERED: ELIQUIS5 MG PO ×2 (14:01)
[2022-11-25] MEDS ORDERED: BENZONATATE100 MG PO ×2 (14:03)
[2022-11-25] MEDS ORDERED: MUCINEX600 MG PO ×2 (14:04)
--- NOTE | 2022-11-25 16:34 | NUR ---
PATIENT RESTING IN CHAIR, EASILY WAKES TO VERBAL STIMULI, A&OX2. PATIENT'V IV SITE REMAINS PATENT, FLUIDS INFUSING PER PROVIDER. PATIENT REMAINS ON 6L OXYGEN PER HIGH FLOW, SP02 95% AT THIS TIME. PATIENT HAS NO ACUTE DISTRESS. PATIENT REMAINS CLOSE TO RN STATION. CALL LIGHT WITHIN REACH.
[2022-11-25 18:02] VITALS: BP 144/76
--- NOTE | 2022-11-25 19:22 | NUR ---
REPORT RECEIVED FROM DAY SHIFT RN. PT SITTING IN RECLINER WITH EYES CLOSED. AWAKENS EASILY. DENIES NEEDS. WHITE BOARD UPDATED. CALL LIGHT IN REACH. PT IN VIEW OF NURSES STATION.
--- NOTE | 2022-11-25 19:42 | NUR ---
DECREASED O2 TO 4 LPM.
[2022-11-25 19:59] VITALS: BP 120/61
--- NOTE | 2022-11-25 20:19 | NUR ---
PT FROM RECLINER TO BED WITH SBA AND FWW. GAIT WEAK. SpO2 DOWN TO LOW 80'S WITH 4L/HFNC IN PLACE. OXYGEN TITRATED TO 9L TO KEEP SATS ABOVE 90. AT REST PT ABLE TO RECOVER. INCREASED RESPIRATIONS AND COUGH WITH ACTIVITY NOTED. OXYGEN BACK TO 4L/HFNC. SpO2 LOW 90'S. HR 80'S. PT DENIES FURTHER NEEDS. BED ALARM FOR SAFETY. CALL LIGHT IN REACH.
--- NOTE | 2022-11-25 22:48 | NUR ---
PT DROWSY. AWAKENS EASILY. A&O X 3. UP TO BSC WITH FWW AND 1PA TO VOID. STAFF ASSIST WITH MARCOS CARE. GAIT WEAK BUT STEADY. BACK TO BED. PT LAWRENCE FAIR. DRY HACKING COUGH AND DECREASED SATS NOTED WITH ACTIVITY. HFNC UP TO 9L WITH ACTIVITY. BACK TO 4L AFTER PERIOD OF REST. EVENING MEDS ADMIN PER EMAR. PRN FOR COUGH GIVEN. ASSISTED PT TO REPOSITION. PT DENIES FURTHER NEEDS. BED ALARM FOR SAFETY. CALL LIGHT IN REACH.
--- NOTE | 2022-11-25 23:27 | NUR ---
PT RESTING WITH EYES CLOSED. RESPIRATIONS EVEN. SpO2 CONSISTENTLY 88-89% WITH 4L/HFNC. DISCUSSED WITH RT. OXYGEN TITRATED TO 5L. SpO2 LOW 90'S.
--- NOTE | 2022-11-26 02:24 | NUR ---
SpO2 87-88% ON 5L/HFNC. PT NOTED TO HAVE SHORT PERIODS OF APNEA. OXYGEN TITRATED TO 6L.
--- NOTE | 2022-11-26 03:46 | NUR ---
PT REPOSITIONED SELF TO RIGHT SIDE. RESTING WITH EYES CLOSED. RESPIRATIONS EVEN.
[2022-11-26 06:20] VITALS: BP 141/79
--- NOTE | 2022-11-26 06:36 | NUR ---
VS AND I&O OBTAINED. PT UP TO BSC WITH FWW TO VOID. STAFF ASSIST WITH MARCOS CARE. BACK TO BED, LAWRENCE FAIR. SATS DOWN TO 70'S WITH 7L/HFNC IN PLACE. OXYGEN TITRATED TO 9L. SpO2 LOW 90'S. INCREASED RESPIRATIONS AND COUGH WITH ACTIVITY. SIPS OF WATER PROVIDED. LUNGS CLEAR/DIM THROUGHOUT. PT REPORTS SOB WITH EXERTION. PT ABLE TO RECOVER AFTER SHORT PERIOD OF REST. OXYGEN BACK TO 6L/HFNC. PT DENIES FURTHER NEEDS. BED ALARM FOR SAFETY. CALL LIGHT IN REACH.
--- NOTE | 2022-11-26 08:59 | NUR ---
SPOKE TO PATIENT ABOUT HER DISCHARGE PLAN. THE PATIENT WILL GO TO [place] AT 1300 TODAY BY [facility]HAB.
[2022-11-26 10:00] VITALS: BP 92/52
--- NOTE | 2022-11-26 11:45 | NUR ---
PT IN BED WITH UNTOUCHED BREAKFAST TRAY IN FRONT OF HER. EYES WERE CLOSED. PT DID NOT ROUSE TO MY KNOCK. APPEARED TO BE SLEEPING. DID NOT DISTURB. PRAYED FROM [facility]ALLWAY.
[2022-11-26 12:30] VITALS: BP 108/57
--- NOTE | 2022-11-26 12:30 | NUR ---
SCALP SPECIALIST ASSISTED PT TO BEDSIDE COMMODE. THE PT OXYGEN SATURATION DECREASED TO 83% ON 6 LITERS. PT APPEARED WEAK AND UNSTEADY. PT DID NOT VOID. PT ASSISTED BACK INTO BED. NURSE NOTIFIED OF PT STATUS. OXYGEN WAS INCREASED AND OXYGEN SATURATION INCREASED TO 91%. PT DRANK SOME WATER AND ENSURE. PT ASSISTED INTO PERSONAL CLOTHES FOR DISCHARGE. CALL LIGHT WITHIN REACH.
[2022-11-27] MEDS ORDERED: ARMODAFINIL150 MG PO ×2 (20:52)
== END 2022-11-26 13:10 | DRG 177 ==
LOC: ED 12:16 → MS 15:38
PROVIDERS: ADMIT Internal Medicine; ATTEND Family Medicine
PROC: 0T9B70Z Drainage of Bladder with Drainage Device, Via Natural or Artificial Opening (ICD-10-PCS; 2022-11-20)
PROC: XW033E5 Introduction of Remdesivir Anti-infective into Peripheral Vein, Percutaneous Approach, New Technology Group 5 (ICD-10-PCS; principal; 2022-11-25)
DX: U07.1 COVID-19 (principal); I26.99 Other pulmonary embolism without acute cor pulmonale; J96.01 Acute respiratory failure with hypoxia; J12.82 Pneumonia due to coronavirus disease 2019; M19.90 Unspecified osteoarthritis, unspecified site; R25.1 Tremor, unspecified; G89.29 Other chronic pain; M54.9 Dorsalgia, unspecified; Z79.01 Long term (current) use of anticoagulants; Z79.2 Long term (current) use of antibiotics; Z79.899 Other long term (current) drug therapy
CPT/HCPCS: 36415; 71045; 71260; 80048; 80053; 80202; 83605; 83735; 85025; 87040; 87502; 94640; 94667; 94668; 94762; 97110; 97116; 97163; 97164; 97530; 99285 25; A9270; C9803; J0248; J2185; J2405; J3370; J3475; J7030; J7050; J7060; J7121; J8540; Q9967; U0002

== ENCOUNTER 2022-11-27 18:52 | Inpatient (IN) | payer MEDICARE ==
[~2022-11-27] VITALS: Ht 165.1 cm; Wt 61.5 kg
--- OUTSIDE RECORDS SUMMARY | ~2022-11-27 | XMS | Continuity of Care Document ---
Demographics + + + | Address | [address] | | | [place] [address] | + + + | Preferred Language | Unknown | + + + | Marital Status | | + + + | Alevism Affiliation | Unknown | + + + | Race | White | + + + | Ethnic Group | Not or | + + + Author + + + | Author | [facility] | + + + | Organization | [facility] | + + + | Address | [address] | | | [place] [address] | + + + | Phone | | + + + Care Team Providers + + + + | Care Weaving Inspector Name | Role | Phone | + + + + Unavailable | Unavailable | + + + + Unavailable | Unavailable | + + + + Unavailable | Unavailable | + + + + Unavailable | Unavailable | + + + + Allergies and Intolerances + + + + + + | date | description | facility | reaction | severity | + + + + + + | (no date) | No Known | [facility] | (no reaction) | (no severity) | | | Allergies | | | | + + + + + + Encounters No information. Functional Status No information. Immunizations No information. Medications + + + + | date | description | facility | + + + + | 2022-11-15 00:00 | | [facility] | | | Guaifenesin/Dextromethorpha | | | | n | | + + + + | 2022-11-18 00:00 | | [facility] | | | Guaifenesin/Dextromethorpha | | | | n | | + + + + | 2022-11-26 00:00 | | [facility] | | | Guaifenesin/Dextromethorpha | | | | n | | + + + + | 2022-11-15 00:00 | CA CARB/VIT D3/MAG OX/ZN | [facility] | | | OXIDE | | + + + + | 2022-11-18 00:00 | CA CARB/VIT D3/MAG OX/ZN | [facility] | | | OXIDE | | + + + + | 2022-11-26 00:00 | CA CARB/VIT D3/MAG OX/ZN | [facility] | | | OXIDE | | + + + + | 2022-11-15 00:00 | APIXABAN | [facility] | + + + + | 2022-11-15 00:00 | APIXABAN | [facility] | + + + + | 2022-11-26 00:00 | APIXABAN | [facility] | + + + + | 2022-11-15 00:00 | BACLOFEN | [facility] | + + + + | 2022-11-18 00:00 | BACLOFEN | [facility] | + + + + | 2022-11-26 00:00 | BACLOFEN | [facility] | + + + + | 2022-11-26 00:00 | BENZONATATE | [facility] | + + + + | 2022-11-15 00:00 | LAMOTRIGINE | [facility] | + + + + | 2022-11-18 00:00 | LAMOTRIGINE | [facility] | + + + + | 2022-11-26 00:00 | LAMOTRIGINE | [facility] | + + + + | 2022-11-15 00:00 | ACETAMINOPHEN | [facility] | + + + + | 2022-11-18 00:00 | ACETAMINOPHEN | [facility] | + + + + | 2022-11-26 00:00 | ACETAMINOPHEN | [facility] | + + + + | 2022-11-15 00:00 | Cholecalciferol (Vitamin | [facility] | | | D3) | | + + + + | 2022-11-18 00:00 | Cholecalciferol (Vitamin | [facility] | | | D3) | | + + + + | 2022-11-26 00:00 | Cholecalciferol (Vitamin | [facility] | | | D3) | | + + + + | 2022-11-15 00:00 | AZITHROMYCIN | [facility] | + + + + | 2022-11-15 00:00 | AZITHROMYCIN | [facility] | + + + + | 2022-11-15 00:00 | CEFPODOXIME PROXETIL | [facility] | + + + + | 2022-11-15 00:00 | GABAPENTIN | [facility] | + + + + | 2022-11-18 00:00 | GABAPENTIN | [facility] | + + + + | 2022-11-26 00:00 | GABAPENTIN | [facility] | + + + + | 2022-11-15 00:00 | DULOXETINE HCL | [facility] | + + + + | 2022-11-18 00:00 | DULOXETINE HCL | [facility] | + + + + | 2022-11-26 00:00 | DULOXETINE HCL | [facility] | + + + + | 2022-11-15 00:00 | Armodafinil | [facility] | + + + + | 2022-11-18 00:00 | Armodafinil | [facility] | + + + + | 2022-11-26 00:00 | Armodafinil | [facility] | + + + + | 2022-11-15 00:00 | Fesoterodine Fumarate | [facility] | + + + + | 2022-11-18 00:00 | Fesoterodine Fumarate | [facility] | + + + + | 2022-11-26 00:00 | Fesoterodine Fumarate | [facility] | + + + + | 2022-11-15 00:00 | ASPIRIN | [facility] | + + + + | 2022-11-18 00:00 | ASPIRIN | [facility] | + + + + | 2022-11-26 00:00 | ASPIRIN | [facility] | + + + + | 2022-11-26 00:00 | GUAIFENESIN | [facility] | + + + + | 2022-11-15 00:00 | PRAVASTATIN SODIUM | [facility] | + + + + | 2022-11-18 00:00 | PRAVASTATIN SODIUM | [facility] | + + + + | 2022-11-26 00:00 | PRAVASTATIN SODIUM | [facility] | + + + + Problems + + + + | date | description | facility | + + + + | 2022-11-13 00:00 | Multiple subsegmental | [facility] | | | pulmonary emboli without | | | | acute cor pulmonale | | + + + + | 2022-11-13 00:00 | Multiple subsegmental | [facility] | | | pulmonary emboli without | | | | acute cor pulmonale | | + + + + | 2022-11-13 00:00 | Pneumonia due to COVID-19 | [facility] | | | virus | | + + + + | 2022-11-13 00:00 | Pneumonia due to COVID-19 | [facility] | | | virus | | + [...] + + + | 2022-11-13 22:29 | CURB ATTENDANT (CURRENT) USE OF | [facility] | | | ANTICOAGULANTS | | + + + + | 2022-11-13 22:29 | OTHER CURB ATTENDANT (CURRENT) | [facility] | | | DRUG THERAPY | | + + + + | 2022-11-13 22:29 | DEPENDENCE ON SUPPLEMENTAL | [facility] | | | OXYGEN | | + + + + | 2022-11-18 00:00 | Nonspecific chest pain | [facility] | + + + + | 2022-11-18 00:00 | Nonspecific chest pain | [facility] | + + + + | 2022-11-18 00:00 | Weakness | [facility] | + + + + | 2022-11-18 00:00 | Weakness | [facility] | + + + + | 2022-11-18 10:28 | WEAKNESS | [facility] | + + + + | 2022-11-18 10:28 | CORRECTION (CURRENT) USE OF | [facility] | | | ANTICOAGULANTS | | + + + + | 2022-11-18 10:28 | OTHER CURB ATTENDANT (CURRENT) | [facility] | | | DRUG THERAPY | | + + + + | 2022-11-19 00:00 | Pneumonia | [facility] | + + + + Procedures + + + + | date | description | facility | + + + + | 2022-11-13 00:00 | INTRODUCTION OF | [facility] | | | ANTI-INFLAM INTO PERIPH | | | | VEIN, PERC APPROACH | | + + + + | 2022-11-13 00:00 | INTRODUCTION OF | [facility] | | | ANTI-INFLAM INTO PERIPH | | | | VEIN, PERC APPROACH | | + + + + | 2022-11-13 00:00 | ISOLATION | [facility] | + + + + | 2022-11-13 00:00 | ISOLATION | [facility] | + + + + | 2022-11-14 00:00 | INTRODUCE REMDESIVIR IN | [facility] | | | PERIPH VEIN, PERC, NEW TECH | | | | 5 | | + + + + | 2022-11-14 00:00 | INTRODUCE REMDESIVIR IN | [facility] | | | PERIPH VEIN, PERC, NEW TECH | | | | 5 | | + + + + Results/Labs +--------+--------+ +---------+--------+---------+ | test | date | facility | value | unit | notes | +--------+--------+ +---------+--------+---------+ + + | Result panel 1 | + + + + + + + + + | | 2022-11-13 | [facility] | YELLOW | (missing) | (missing) | | (unavailable | [facility]45[facility]07 [facility] | | | + + + + + + + + + | Result panel 2 | + + + + + +---------+ + + | | 2022-11-13 | [facility] | CLEAR | (missing) | (missing) | | (unavailable | [facility]45:07 [facility] | | | | + + + +---------+ + + + + | Result panel 3 | + + + + + + + + + | | 2022-11-13 | [facility] | NEGATIVE | (missing) | (missing) | | (unavailable | [facility]45[facility]07 [facility] | | | | + + + + + + + + + | Result panel 4 | + + + + + + + + + | | 2022-11-13 | [facility] | NEGATIVE | (missing) | (missing) | | (unavailable | [facility]45[facility]07 [facility] | | | | + + + + + + + + + | Result panel 5 | + + + + + +---------+ + + | | 2022-11-13 | [facility] | TRACE | (missing) | (missing) | | (unavailable | [facility]45[facility] | | | | + + + +---------+ + + + + | Result panel 6 | + + + + + +---------+ + + | | 2022-11-13 | [facility] | 1.010 | (missing) | (missing) | | (unavailable | [facility]45[facility] | | | | + + + +---------+ + + + + | Result panel 7 | + + + + + + + + + | | 2022-11-13 | [facility] | NEGATIVE | (missing) | (missing) | | (unavailable | [facility]45[facility] | | | | + + + + + + + + + | Result panel 8 | + + + + + +-------+ + + | | 2022-11-13 | [facility] | 6.0 | (missing) | (missing) | | (unavailable | [facility]45[facility] | | | + + + +-------+ + + + + | Result panel 9 | + + + + + + + + + | | 2022-11-13 | [facility] | NEGATIVE | (missing) | (missing) | | (unavailable | [facility]45[facility] | | | + + + + + + + + + | Result panel 10 | + + + + + +-------+ + + | | 2022-11-13 | [facility] | 1.0 | (missing) | (missing) | | (unavailable | [facility]45[facility]07 [facility] | | | + + + +-------+ + + + + | Result panel 11 | + + + + + + + + + | | 2022-11-13 | [facility] | NEGATIVE | (missing) | (missing) | | (unavailable | [facility]45[facility]07 [facility] | | | + + + + + + + + + | Result panel 12 | + + + + + + + + + | | 2022-11-13 | [facility] | NEGATIVE | (missing) | (missing) | | (unavailable | [facility]45[facility] | | | + + + + + + + + + | Result panel 13 | + + + + + +---------+ + + | | 2022-11-13 | [facility] | 11.90 | (missing) | (missing) | | (unavailable | 20[facility]21:07 [facility] | | | | + + + +---------+ + + + + | Result panel 14 | + + + + + +-------+ + + | | 2022-11-13 | [facility] | 218 | (missing) | (missing) | | (unavailable | 20[facility]21:07 [facility] | | | + + + +-------+ + + + + | Result panel 15 | + + + + + +--------+ + + | | 2022-11-13 | [facility] | 14.2 | (missing) | (missing) | | (unavailable | 20[facility]21:07 [facility] | | | + + + +--------+ + + + + | Result panel 16 | + + + + + +-------+ + + | | 2022-11-13 | [facility] | 1.0 | (missing) | (missing) | | (unavailable | 20[facility]21:07 [facility] | | | + + + +-------+ + + + + | Result panel 17 | + + + + + +---------+ + + | | 2022-11-13 | [facility] | 11.90 | (missing) | (missing) | | (unavailable | [facility]21:07 [facility] | | | + + + +---------+ + + + + | Result panel 18 | + + + + + +-------+ + + | | 2022-11-13 | [facility] | 218 | (missing) | (missing) | | (unavailable | 20[facility]21:07 [facility] | | | + + + +-------+ + + + + | Result panel 19 | + + + + + +--------+ + + | | 2022-11-13 | [facility] | 14.2 | (missing) | (missing) | | (unavailable | 20[facility]21:07 [facility] | | | + + + +--------+ + + + + | Result panel 20 | + + + + + +---------+ + + | | 2022-11-13 | [facility] | 11.90 | (missing) | (missing) | | (unavailable | 20[facility]21:07 [facility] | | | + + + +---------+ + + + + | Result panel 21 | + + + + + +-------+ + + | | 2022-11-13 | [facility] | 218 | (missing) | (missing) | | (unavailable | 20[facility]21:07 [facility] | | | + + + +-------+ + + + + | Result panel 22 | + + + + + +--------+ + + | | 2022-11-13 | [facility] | 14.2 | (missing) | (missing) | | (unavailable | 20[facility]21:07 [facility] | | | + + + +--------+ + + + + | Result panel 23 | + + + + + +-------+ + + | | 2022-11-13 | [facility] | 1.0 | (missing) | (missing) | | (unavailable | 20[facility]21:07 [facility] | | | + + + +-------+ + + + + | Result panel 24 | + + + + + +---------+ + + | | 2022-11-13 | [facility] | 11.90 | (missing) | (missing) | | (unavailable | 20[facility]21:07 [facility] | | | + + + +---------+ + + + + | Result panel 25 | + + + + + +-------+ + + | | 2022-11-13 | [facility] | 218 | (missing) | (missing) | | (unavailable | 20[facility]21:07 [facility] | | | + + + +-------+ + + + + | Result panel 26 | + + + + + +--------+ + + | | 2022-11-13 | [facility] | 14.2 | (missing) | (missing) | | (unavailable | 20:: [facility] | | | + + + +--------+ + + + + | Result panel 27 | + + + + + +-------+ + + | | 2022-11-13 | [facility] | 1.0 | (missing) | (missing) | | (unavailable | 20::07 [facility] | | | + + + +-------+ + + + + | Result panel 28 | + + + + + +---------+ + + | | 2022-11-13 | [facility] | 7.405 | (missing) | (missing) | | (unavailable | 20:25:07 [facility] | | | + + + +---------+ + + + + | Result panel 29 | + + + + + +---------+ + + | | 2022-11-13 | [facility] | 7.405 | (missing) | (missing) | | (unavailable | 20:25:07 [facility] | | | + + + +---------+ + + + + | Result panel 30 | + + + + + +---------+ + + | | 2022-11-13 | [facility] | 7.405 | (missing) | (missing) | | (unavailable | 20:25:07 [facility] | | | + + + +---------+ + + + + | Result panel 31 | + + + + + +---------+ + + | | 2022-11-13 | [facility] | 7.405 | (missing) | (missing) | | (unavailable | 20:25:07 [facility] | | | + + + +---------+ + + + + | Result panel 32 | + + + + + +-------+ + + | | 2022-11-14 | [facility] | 6.5 | (missing) | (missing) | | (unavailable | 05:08:07 [facility] | | | + + + +-------+ + + + + | Result panel 33 | + + + + + +-------+ + + | | 2022-11-14 | [facility] | 3.1 | (missing) | (missing) | | (unavailable | 05:08:07 [facility] | | | + + + +-------+ + + + + | Result panel 34 | + + + + + +-------+ + + | | 2022-11-14 | [facility] | 3.4 | (missing) | (missing) | | (unavailable | 05:08:07 [facility] | | | + + + +-------+ + + + + | Result panel 35 | + + + + + +--------+ + + | | 2022-11-14 | [facility] | 0.91 | (missing) | (missing) | | (unavailable | 05[facility]08:07 [facility] | | | + + + +--------+ + + + + | Result panel 36 | + + + + + +-------+ + + | | 2022-11-14 | [facility] | 0.4 | (missing) | (missing) | | (unavailable | 05[facility]08:07 [facility] | | | + + + +-------+ + + + + | Result panel 37 | + + + + + +------+ + + | | 2022-11-14 | [facility] | 28 | (missing) | (missing) | | (unavailable | 05[facility]08:07 [facility] | | | + + + +------+ + + + + | Result panel 38 | + + + + + +------+ + + | | 2022-11-14 | [facility] | 18 | (missing) | (missing) | | (unavailable | 05[facility]08:07 [facility] | | | + + + +------+ + + + + | Result panel 39 | + + + + + +------+ + + | | 2022-11-14 | [facility] | 97 | (missing) | (missing) | | (unavailable | 05:08:07 [facility] | | | + + + +------+ + + + + | Result panel 40 | + + + + + +-------+ + + | | 2022-11-15 | [facility] | 4.2 | (missing) | (missing) | | (unavailable | 05::07 [facility] | | | + + + +-------+ + + + + | Result panel 41 | + + + + + +--------+ + + | | 2022-11-15 | [facility] | 69.0 | (missing) | (missing) | | (unavailable | 05::07 [facility] | | | + + + +--------+ + + + + | Result panel 42 | + + + + + +--------+ + + | | 2022-11-15 | [facility] | 17.5 | (missing) | (missing) | | (unavailable | 05:09:07 [facility] | | | + + + +--------+ + + + + | Result panel 43 | + + + + + +--------+ + + | | 2022-11-15 | [facility] | 12.9 | (missing) | (missing) | | (unavailable | 05:09:07 [facility] | | | + + + +--------+ + + + + | Result panel 44 | + + + + + +-------+ + + | | 2022-11-15 | [facility] | 0.2 | (missing) | (missing) | | (unavailable | 05[facility]09:07 [facility] | | | + + + +-------+ + + + + | Result panel 45 | + + + + + +-------+ + + | | 2022-11-15 | [facility] | 0.4 | (missing) | (missing) | | (unavailable | 05[facility]09:07 [facility] | | | + + + +-------+ + + + + | Result panel 46 | + + + + + +--------+ + + | | 2022-11-15 | [facility] | 16.2 | (missing) | (missing) | | (unavailable | 05[facility]09:07 [facility] | | | + + + +--------+ + + + + | Result panel 47 | + + + + + +--------+ + + | | 2022-11-15 | [facility] | 16.2 | (missing) | (missing) | | (unavailable | 05[facility]09:07 [facility] | | | + + + +--------+ + + + + | Result panel 48 | + + + + + +--------+ + + | | 2022-11-15 | [facility] | 1.35 | (missing) | (missing) | | (unavailable | 05[facility]09:07 [facility] | | | + + + +--------+ + + + + | Result panel 49 | + + + + + +--------+ + + | | 2022-11-15 | [facility] | 1.35 | (missing) | (missing) | | (unavailable | 05[facility]09:07 [facility] | | | + + + +--------+ + + + + | Result panel 50 | + + + + + +------+---------+ + | | 2022-11-15 | [facility] | 97 | mg/dL | (missing) | | (unavailable | 05::07 [facility] | | | + + + +------+---------+ + + + | Result panel 51 | + + + + + +------+---------+ + | | 2022-11-15 | [facility] | 20 | mg/dL | (missing) | | (unavailable | 05::07 [facility] | | | + + + +------+---------+ + + + | Result panel 52 | + + + + + +--------+ + + | | 2022-11-15 | [facility] | 16.2 | (missing) | (missing) | | (unavailable | 05[facility]09:07 [facility] | | | + + + +--------+ + + + + | Result panel 53 | + + + + + +--------+ + + | | 2022-11-15 | [facility] | 1.35 | (missing) | (missing) | | (unavailable | [facility]09:07 [facility] | | | + + + +--------+ + + + + | Result panel 54 | + + + + + +--------+---------+ + | | 2022-11-15 | [facility] | 1.04 | mg/dL | (missing) | | (unavailable | 05::07 [facility] | | | + + + +--------+---------+ + + + | Result panel 55 | + + + + + +--------+ + + | | 2022-11-15 | [facility] | 4.24 | (missing) | (missing) | | (unavailable | 05[facility]09:07 [facility] | | | + + + +--------+ + + + + | Result panel 56 | + + + + + +------+ + + | | 2022-11-15 | [facility] | 55 | (missing) | (missing) | | (unavailable | 05::07 [facility] | | | + + + +------+ + + + + | Result panel 57 | + + + + + +---------+ + + | | 2022-11-15 | [facility] | 19.23 | (missing) | (missing) | | (unavailable | 05[facility]09:07 [facility] | | | + + + +---------+ + + + + | Result panel 58 | + + + + + +-------+ + + | | 2022-11-15 | [facility] | 142 | (missing) | (missing) | | (unavailable | 05[facility]09:07 [facility] | | | + + + +-------+ + + + + | Result panel 59 | + + + + + +-------+ + + | | 2022-11-15 | [facility] | 3.6 | (missing) | (missing) | | (unavailable | 05[facility]09:07 [facility] | | | + + + +-------+ + + + + | Result panel 60 | + + + + + +-------+ + + | | 2022-11-15 | [facility] | 104 | (missing) | (missing) | | (unavailable | 05[facility]09:07 [facility] | | | + + + +-------+ + + + + | Result panel 61 | + + + + + +------+ + + | | 2022-11-15 | [facility] | 31 | (missing) | (missing) | | (unavailable | [facility]09:07 [facility] | | | + + + +------+ + + + + | Result panel 62 | + + + + + +--------+ + + | | 2022-11-15 | [facility] | 10.6 | (missing) | (missing) | | (unavailable | [facility]09:07 [facility] | | | + + + +--------+ + + + + | Result panel 63 | + + + + + +-------+---------+ + | | 2022-11-15 | [facility] | 8.5 | mg/dL | (missing) | | (unavailable | 05:09:07 [facility] | | | + + + +-------+---------+ + + + | Result panel 64 | + + + + + +--------+ + + | | 2022-11-15 | [facility] | 12.6 | (missing) | (missing) | | (unavailable | [facility]09:07 [facility] | | | + + + +--------+ + + + + | Result panel 65 | + + + + + +--------+ + + | | 2022-11-15 | [facility] | 37.1 | (missing) | (missing) | | (unavailable | [facility]09:07 [facility] | | | + + + +--------+ + + + + | Result panel 66 | + + + + + +--------+ + + | | 2022-11-15 | [facility] | 87.6 | (missing) | (missing) | | (unavailable | [facility]09:07 [facility] | | | + + + +--------+ + + + + | Result panel 67 | + + + + + +--------+ + + | | 2022-11-15 | [facility] | 16.2 | (missing) | (missing) | | (unavailable | [facility]09:07 [facility] | | | + + + +--------+ + + + + | Result panel 68 | + + + + + +--------+ + + | | 2022-11-15 | [facility] | 1.35 | (missing) | (missing) | | (unavailable | [facility]09:07 [facility] | | | + + + +--------+ + + + + | Result panel 69 | + + + + + +--------+ + + | | 2022-11-15 | [facility] | 29.7 | (missing) | (missing) | | (unavailable | [facility]09:07 [facility] | | | + + + +--------+ + + + + | Result panel 70 | + + + + + +--------+ + + | | 2022-11-15 | [facility] | 34.0 | (missing) | (missing) | | (unavailable | [facility]09:07 [facility] | | | + + + +--------+ + + + + | Result panel 71 | + + + + + +--------+ + + | | 2022-11-15 | [facility] | 13.7 | (missing) | (missing) | | (unavailable | [facility]09:07 [facility] | | | + + + +--------+ + + + + | Result panel 72 | + + + + + +-------+ + + | | 2022-11-15 | [facility] | 180 | (missing) | (missing) | | (unavailable | 05[facility]09:07 [facility] | | | | + + + +-------+ + + + + | Result panel 73 | + + + + + +--------+ + + | | 2022-11-18 | [facility] | 0.91 | (missing) | (missing) | | (unavailable | 10:34:07 [facility] | | | + + + +--------+ + + + + | Result panel 74 | + + + + + +-------+ + + | | 2022-11-18 | [facility] | 0.6 | (missing) | (missing) | | (unavailable | 10:34:07 [facility] | | | | + + + +-------+ + + + + | Result panel 75 | + + + + + +------+ + + | | 2022-11-18 | [facility] | 42 | (missing) | (missing) | | (unavailable | 10:34:07 [facility] | | | | + + + +------+ + + + + | Result panel 76 | + + + + + +------+ + + | | 2022-11-18 | [facility] | 29 | (missing) | (missing) | | (unavailable | 10:34:07 [facility] | | | | + + + +------+ + + + + | Result panel 77 | + + + + + +-------+ + + | | 2022-11-18 | [facility] | 104 | (missing) | (missing) | | (unavailable | 10:34:07 [facility] | | | | + + + +-------+ + + + + | Result panel 78 | + + + + + +-------+ + + | | 2022-11-18 | [facility] | 7.4 | (missing) | (missing) | | (unavailable | [facility]:34:07 [facility] | | | | + + + +-------+ + + + + | Result panel 79 | + + + + + +--------+ + + | | 2022-11-18 | [facility] | 4.28 | (missing) | (missing) | | (unavailable | [facility]:34:07 [facility] | | | | + + + +--------+ + + + + | Result panel 80 | + + + + + +--------+ + + | | 2022-11-18 | [facility] | 12.7 | (missing) | (missing) | | (unavailable | 10:34:07 [facility] | | | | + + + +--------+ + + + + | Result panel 81 | + + + + + +--------+ + + | | 2022-11-18 | [facility] | 37.2 | (missing) | (missing) | | (unavailable | 10:34:07 [facility] | | | | + + + +--------+ + + + + | Result panel 82 | + + + + + +--------+ + + | | 2022-11-18 | [facility] | 86.8 | (missing) | (missing) | | (unavailable | 10:34:07 [facility] | | | | + + + +--------+ + + + + | Result panel 83 | + + + + + +--------+ + + | | 2022-11-18 | [facility] | 29.8 | (missing) | (missing) | | (unavailable | 10:34:07 [facility] | | | | + + + +--------+ + + + + | Result panel 84 | + + + + + +--------+ + + | | 2022-11-18 | [facility] | 34.3 | (missing) | (missing) | | (unavailable | 10:34:07 [facility] | | | | + + + +--------+ + + + + | Result panel 85 | + + + + + +--------+ + + | | 2022-11-18 | [facility] | 13.8 | (missing) | (missing) | | (unavailable | 10:34:07 [facility] | | | | + + + +--------+ + + + + | Result panel 86 | + + + + + +-------+ + + | | 2022-11-18 | [facility] | 255 | (missing) | (missing) | | (unavailable | 10:34:07 [facility] | | | | + + + +-------+ + + + + | Result panel 87 | + + + + + +--------+ + + | | 2022-11-18 | [facility] | 78.8 | (missing) | (missing) | | (unavailable | 10:34:07 [facility] | | | | + + + +--------+ + + + + | Result panel 88 | + + + + + +--------+ + + | | 2022-11-18 | [facility] | 11.7 | (missing) | (missing) | | (unavailable | 10:34:07 [facility] | | | | + + + +--------+ + + + + | Result panel 89 | + + + + + +-------+ + + | | 2022-11-18 | [facility] | 8.3 | (missing) | (missing) | | (unavailable | 10:34:07 [facility] | | | | + + + +-------+ + + + + | Result panel 90 | + + + + + +-------+ + + | | 2022-11-18 | [facility] | 0.9 | (missing) | (missing) | | (unavailable | 10:34:07 [facility] | | | | + + + +-------+ + + + + | Result panel 91 | + + + + + +-------+ + + | | 2022-11-18 | [facility] | 0.3 | (missing) | (missing) | | (unavailable | [facility] | | | | + + + +-------+ + + + + | Result panel 92 | + + + + + +-------+---------+ + | | 2022-11-18 | [facility] | 125 | mg/dL | (missing) | | (unavailable | [facility] | | | | + + + +-------+---------+ + + + | Result panel 93 | + + + + + +------+---------+ + | | 2022-11-18 | [facility] | 24 | mg/dL | (missing) | | (unavailable | [facility] | | | | + + + +------+---------+ + + + | Result panel 94 | + + + + + +--------+---------+ + | | 2022-11-18 | [facility] | 1.02 | mg/dL | (missing) | | (unavailable | [facility] | | | + + + +--------+---------+ + + + | Result panel 95 | + + + + + +------+ + + | | 2022-11-18 | [facility] | 56 | (missing) | (missing) | | (unavailable | [facility] | | | + + + +------+ + + + + | Result panel 96 | + + + + + +---------+ + + | | 2022-11-18 | [facility] | 23.52 | (missing) | (missing) | | (unavailable | [facility] | | | + + + +---------+ + + + + | Result panel 97 | + + + + + +-------+ + + | | 2022-11-18 | [facility] | 141 | (missing) | (missing) | | (unavailable | [facility] | | | + + + +-------+ + + + + | Result panel 98 | + + + + + +-------+ + + | | 2022-11-18 | [facility] | 3.9 | (missing) | (missing) | | (unavailable | [facility] | | | + + + +-------+ + + + + | Result panel 99 | + + + + + +-------+ + + | | 2022-11-18 | [facility] | 105 | (missing) | (missing) | | (unavailable | [facility] | | | + + + +-------+ + + + + | Result panel 100 | + + + + + +------+ + + | | 2022-11-18 | [facility] | 32 | (missing) | (missing) | | (unavailable | [facility] | | | + + + +------+ + + + + | Result panel 101 | + + + + + +-------+ + + | | 2022-11-18 | [facility] | 7.9 | (missing) | (missing) | | (unavailable | [facility] | | | + + + +-------+ + + + + | Result panel 102 | + + + + + +-------+---------+ + | | 2022-11-18 | [facility] | 9.0 | mg/dL | (missing) | | (unavailable | [facility] | | | + + + +-------+---------+ + + + | Result panel 103 | + + + + + +-------+ + + | | 2022-11-18 | [facility] | 6.5 | (missing) | (missing) | | (unavailable | [facility] | | | + + + +-------+ + + + + | Result panel 104 | + + + + + +-------+ + + | | 2022-11-18 | [facility] | 3.1 | (missing) | (missing) | | (unavailable | [facility] | | | + + + +-------+ + + + + | Result panel 105 | + + + + + +-------+ + + | | 2022-11-18 | [facility] | 3.4 | (missing) | (missing) | | (unavailable | [facility] | | | + + + +-------+ + + + + | Result panel 106 | + + + + + +--------+ + + | | 2022-11-18 | [facility] | 0.91 | (missing) | (missing) | | (unavailable | [facility] | | | + + + +--------+ + + + + | Result panel 107 | + + + + + +-------+ + + | | 2022-11-18 | [facility] | 0.6 | (missing) | (missing) | | (unavailable | [facility] | | | + + + +-------+ + + + + | Result panel 108 | + + + + + +------+ + + | | 2022-11-18 | [facility] | 42 | (missing) | (missing) | | (unavailable | [facility] | | | + + + +------+ + + + + | Result panel 109 | + + + + + +------+ + + | | 2022-11-18 | [facility] | 29 | (missing) | (missing) | | (unavailable | [facility] | | | + + + +------+ + + + + | Result panel 110 | + + + + + +-------+ + + | | 2022-11-18 | [facility] | 104 | (missing) | (missing) | | (unavailable | [facility] | | | + + + +-------+ + + + + | Result panel 111 | + + + + + +-------+ + + | | 2022-11-18 | [facility] | 7.4 | (missing) | (missing) | | (unavailable | [facility] | | | + + + +-------+ + + + + | Result panel 112 | + + + + + +--------+ + + | | 2022-11-18 | [facility] | 4.28 | (missing) | (missing) | | (unavailable | [facility] | | | + + + +--------+ + + + + | Result panel 113 | + + + + + +--------+ + + | | 2022-11-18 | [facility] | 12.7 | (missing) | (missing) | | (unavailable | [facility] | | | + + + +--------+ + + + + | Result panel 114 | + + + + + +--------+ + + | | 2022-11-18 | [facility] | 37.2 | (missing) | (missing) | | (unavailable | [facility] | | | + + + +--------+ + + + + | Result panel 115 | + + + + + +--------+ + + | | 2022-11-18 | [facility] | 86.8 | (missing) | (missing) | | (unavailable | [facility] | | | | + + + +--------+ + + + + | Result panel 116 | + + + + + +--------+ + + | | 2022-11-18 | [facility] | 29.8 | (missing) | (missing) | | (unavailable | [facility] | | | | + + + +--------+ + + + + | Result panel 117 | + + + + + +--------+ + + | | 2022-11-18 | [facility] | 34.3 | (missing) | (missing) | | (unavailable | [facility] | | | | + + + +--------+ + + + + | Result panel 118 | + + + + + +--------+ + + | | 2022-11-18 | [facility] | 13.8 | (missing) | (missing) | | (unavailable | [facility] | | | + + + +--------+ + + + + | Result panel 119 | + + + + + +-------+ + + | | 2022-11-18 | [facility] | 255 | (missing) | (missing) | | (unavailable | [facility] | | | | + + + +-------+ + + + + | Result panel 120 | + + + + + +--------+ + + | | 2022-11-18 | [facility] | 78.8 | (missing) | (missing) | | (unavailable | [facility] | | | + + + +--------+ + + + + | Result panel 121 | + + + + + +--------+ + + | | 2022-11-18 | [facility] | 11.7 | (missing) | (missing) | | (unavailable | [facility] | | | + + + +--------+ + + + + | Result panel 122 | + + + + + +-------+ + + | | 2022-11-18 | [facility] | 8.3 | (missing) | (missing) | | (unavailable | [facility] | | | | + + + +-------+ + + + + | Result panel 123 | + + + + + +-------+ + + | | 2022-11-18 | [facility] | 0.9 | (missing) | (missing) | | (unavailable | [facility] | | | + + + +-------+ + + + + | Result panel 124 | + + + + + +-------+ + + | | 2022-11-18 | [facility] | 0.3 | (missing) | (missing) | | (unavailable | [facility] | | | | + + + +-------+ + + + + | Result panel 125 | + + + + + +-------+---------+ + | | 2022-11-18 | [facility] | 125 | mg/dL | (missing) | | (unavailable | [facility] | | | | + + + +-------+---------+ + + + | Result panel 126 | + + + + + +------+---------+ + | | 2022-11-18 | [facility] | 24 | mg/dL | (missing) | | (unavailable | [facility] | | | | + + + +------+---------+ + + + | Result panel 127 | + + + + + +--------+---------+ + | | 2022-11-18 | [facility] | 1.02 | mg/dL | (missing) | | (unavailable | [facility] | | | | + + + +--------+---------+ + + + | Result panel 128 | + + + + + +------+ + + | | 2022-11-18 | [facility] | 56 | (missing) | (missing) | | (unavailable | [facility] | | | | + + + +------+ + + + + | Result panel 129 | + + + + + +---------+ + + | | 2022-11-18 | [facility] | 23.52 | (missing) | (missing) | | (unavailable | [facility] | | | | + + + +---------+ + + + + | Result panel 130 | + + + + + +-------+ + + | | 2022-11-18 | [facility] | 141 | (missing) | (missing) | | (unavailable | [facility] | | | + + + +-------+ + + + + | Result panel 131 | + + + + + +-------+ + + | | 2022-11-18 | [facility] | 3.9 | (missing) | (missing) | | (unavailable | [facility] | | | + + + +-------+ + + + + | Result panel 132 | + + + + + +-------+ + + | | 2022-11-18 | [facility] | 105 | (missing) | (missing) | | (unavailable | [facility] | | | | + + + +-------+ + + + + | Result panel 133 | + + + + + +------+ + + | | 2022-11-18 | [facility] | 32 | (missing) | (missing) | | (unavailable | [facility] | | | + + + +------+ + + + + | Result panel 134 | + + + + + +-------+ + + | | 2022-11-18 | [facility] | 7.9 | (missing) | (missing) | | (unavailable | [facility] | | | + + + +-------+ + + + + | Result panel 135 | + + + + + +-------+---------+ + | | 2022-11-18 | [facility] | 9.0 | mg/dL | (missing) | | (unavailable | [facility] | | | | + + + +-------+---------+ + + + | Result panel 136 | + + + + + +-------+ + + | | 2022-11-18 | [facility] | 6.5 | (missing) | (missing) | | (unavailable | [facility] | | | | + + + +-------+ + + + + | Result panel 137 | + + + + + +-------+ + + | | 2022-11-18 | [facility] | 3.1 | (missing) | (missing) | | (unavailable | [facility] | | | + + + +-------+ + + + + | Result panel 138 | + + + + + +-------+ + + | | 2022-11-18 | [facility] | 3.4 | (missing) | (missing) | | (unavailable | [facility] | | | + + + +-------+ + + + + | Result panel 139 | + + + + + + + + + | | 2022-11-18 | [facility] | YELLOW | (missing) | (missing) | | (unavailable | 13[facility]23:07 [facility] | | | | + + + + + + + + + | Result panel 140 | + + + + + +---------+ + + | | 2022-11-18 | [facility] | CLEAR | (missing) | (missing) | | (unavailable | [facility]23:07 [facility] | | | + + + +---------+ + + + + | Result panel 141 | + + + + + + + + + | | 2022-11-18 | [facility] | NEGATIVE | (missing) | (missing) | | (unavailable | [facility] | | | + + + + + + + + + | Result panel 142 | + + + + + + + + + | | 2022-11-18 | [facility] | NEGATIVE | (missing) | (missing) | | (unavailable | [facility] | | | + + + + + + + + + | Result panel 143 | + + + + + +---------+ + + | | 2022-11-18 | [facility] | SMALL | (missing) | (missing) | | (unavailable | [facility]23:07 [facility] | | | + + + +---------+ + + + + | Result panel 144 | + + + + + +---------+ + + | | 2022-11-18 | [facility] | 1.020 | (missing) | (missing) | | (unavailable | [facility] | | | + + + +---------+ + + + + | Result panel 145 | + + + + + + + + + | | 2022-11-18 | [facility] | NEGATIVE | (missing) | (missing) | | (unavailable | [facility] | | | + + + + + + + + + | Result panel 146 | + + + + + +-------+ + + | | 2022-11-18 | [facility] | 6.5 | (missing) | (missing) | | (unavailable | [facility] | | | + + + +-------+ + + + + | Result panel 147 | + + + + + + + + + | | 2022-11-18 | [facility] | NEGATIVE | (missing) | (missing) | | (unavailable | [facility]23:[facility] | | | | + + + + + + + + + | Result panel 148 | + + + + + +-------+ + + | | 2022-11-18 | [facility] | 1.0 | (missing) | (missing) | | (unavailable | [facility]23:07 [facility] | | | | + + + +-------+ + + + + | Result panel 149 | + + + + + + + + + | | 2022-11-18 | [facility] | NEGATIVE | (missing) | (missing) | | (unavailable | [facility]23:[facility] | | | | + + + + + + + + + | Result panel 150 | + + + + + + + + + | | 2022-11-18 | [facility] | NEGATIVE | (missing) | (missing) | | (unavailable | [facility]23:07 [facility] | | | | + + + + + + + + + | Result panel 151 | + + + + + + + + + | | 2022-11-18 | [facility] | YELLOW | (missing) | (missing) | | (unavailable | [facility]23:07 [facility] | | | | + + + + + + + + + | Result panel 152 | + + + + + +---------+ + + | | 2022-11-18 | [facility] | CLEAR | (missing) | (missing) | | (unavailable | [facility]23:07 [facility] | | | | + + + +---------+ + + + + | Result panel 153 | + + + + + + + + + | | 2022-11-18 | [facility] | NEGATIVE | (missing) | (missing) | | (unavailable | [facility]23[facility] | | | | + + + + + + + + + | Result panel 154 | + + + + + + + + + | | 2022-11-18 | [facility] | NEGATIVE | (missing) | (missing) | | (unavailable | [facility]23:07 [facility] | | | | + + + + + + + + + | Result panel 155 | + + + + + +---------+ + + | | 2022-11-18 | [facility] | SMALL | (missing) | (missing) | | (unavailable | [facility]23:07 [facility] | | | | + + + +---------+ + + + + | Result panel 156 | + + + + + +---------+ + + | | 2022-11-18 | [facility] | 1.020 | (missing) | (missing) | | (unavailable | [facility]23:07 [facility] | | | | + + + +---------+ + + + + | Result panel 157 | + + + + + + + + + | | 2022-11-18 | [facility] | NEGATIVE | (missing) | (missing) | | (unavailable | [facility]23:07 [facility] | | | | + + + + + + + + + | Result panel 158 | + + + + + +-------+ + + | | 2022-11-18 | [facility] | 6.5 | (missing) | (missing) | | (unavailable | [facility]23:07 [facility] | | | | + + + +-------+ + + + + | Result panel 159 | + + + + + + + + + | | 2022-11-18 | [facility] | NEGATIVE | (missing) | (missing) | | (unavailable | [facility]23:[facility] | | | | + + + + + + + + + | Result panel 160 | + + + + + +-------+ + + | | 2022-11-18 | [facility] | 1.0 | (missing) | (missing) | | (unavailable | [facility]23:07 [facility] | | | | + + + +-------+ + + + + | Result panel 161 | + + + + + + + + + | | 2022-11-18 | [facility] | NEGATIVE | (missing) | (missing) | | (unavailable | [facility]23:[facility] | | | | + + + + + + + + + | Result panel 162 | + + + + + + + + + | | 2022-11-18 | [facility] | NEGATIVE | (missing) | (missing) | | (unavailable | [facility]23:07 [facility] | | | | + + + + + + + + + | Result panel 163 | + + + + + + + + + | | 2022-11-18 | [facility] | YELLOW | (missing) | (missing) | | (unavailable | [facility]23:07 [facility] | | | | + + + + + + + + + | Result panel 164 | + + + + + +---------+ + + | | 2022-11-18 | [facility] | CLEAR | (missing) | (missing) | | (unavailable | [facility]23:07 [facility] | | | | + + + +---------+ + + + + | Result panel 165 | + + + + + + + + + | | 2022-11-18 | [facility] | NEGATIVE | (missing) | (missing) | | (unavailable | [facility]23:07 [facility] | | | | + + + + + + + + + | Result panel 166 | + + + + + + + + + | | 2022-11-18 | [facility] | NEGATIVE | (missing) | (missing) | | (unavailable | [facility]23:[facility] | | | | + + + + + + + + + | Result panel 167 | + + + + + +---------+ + + | | 2022-11-18 | [facility] | SMALL | (missing) | (missing) | | (unavailable | [facility]23:07 [facility] | | | | + + + +---------+ + + + + | Result panel 168 | + + + + + +---------+ + + | | 2022-11-18 | [facility] | 1.020 | (missing) | (missing) | | (unavailable | [facility]23:07 [facility] | | | | + + + +---------+ + + + + | Result panel 169 | + + + + + + + + + | | 2022-11-18 | [facility] | NEGATIVE | (missing) | (missing) | | (unavailable | [facility]23:07 [facility] | | | | + + + + + + + + + | Result panel 170 | + + + + + +-------+ + + | | 2022-11-18 | [facility] | 6.5 | (missing) | (missing) | | (unavailable | [facility]23:07 [facility] | | | | + + + +-------+ + + + + | Result panel 171 | + + + + + + + + + | | 2022-11-18 | [facility] | NEGATIVE | (missing) | (missing) | | (unavailable | [facility]23:07 [facility] | | | | + + + + + + + + + | Result panel 172 | + + + + + +-------+ + + | | 2022-11-18 | [facility] | 1.0 | (missing) | (missing) | | (unavailable | [facility]23:07 [facility] | | | | + + + +-------+ + + + + | Result panel 173 | + + + + + + + + + | | 2022-11-18 | [facility] | NEGATIVE | (missing) | (missing) | | (unavailable | [facility]:23:[facility] | | | | + + + + + + + + + | Result panel 174 | + + + + + + + + + | | 2022-11-18 | [facility] | NEGATIVE | (missing) | (missing) | | (unavailable | 13[facility]23:07 [facility] | | | | + + + + + + + + + | Result panel 175 | + + + + + +--------+ + + | | 2022-11-19 | [facility] | 0.13 | (missing) | (missing) | | (unavailable | 16:50:07 [facility] | | | | + + + +--------+ + + + + | Result panel 176 | + + + + + + + + + | | 2022-11-19 | [facility] | | (missing) | (missing) | | (unavailable | 19:08:07 [facility] | [facility] | | | + + + + + + + + + | Result panel 177 | + + + + + +-------+ + + | | 2022-11-23 | [facility] | 2.0 | (missing) | (missing) | | (unavailable | 19:04:07 [facility] | | | | + + + +-------+ + + + + | Result panel 178 | + + + + + +-------+---------+ + | | 2022-11-24 | [facility] | 1.8 | mg/dL | (missing) | | (unavailable | 08:10:07 [facility] | | | | + + + +-------+---------+ + + + | Result panel 179 | + + + + + +-------+ + + | | 2022-11-24 | [facility] | 6.0 | (missing) | (missing) | | (unavailable | 08:10:07 [facility] | | | | + + + +-------+ + + + + | Result panel 180 | + + + + + +-------+ + + | | 2022-11-24 | [facility] | 2.5 | (missing) | (missing) | | (unavailable | 08:10:07 [facility] | | | | + + + +-------+ + + + + | Result panel 181 | + + + + + +-------+ + + | | 2022-11-24 | [facility] | 3.5 | (missing) | (missing) | | (unavailable | 08:10:07 [facility] | | | | + + + +-------+ + + + + | Result panel 182 | + + + + + +--------+ + + | | 2022-11-24 | [facility] | 0.71 | (missing) | (missing) | | (unavailable | 08:10:07 [facility] | | | | + + + +--------+ + + + + | Result panel 183 | + + + + + +-------+ + + | | 2022-11-24 | [facility] | 0.7 | (missing) | (missing) | | (unavailable | 08:10:07 [facility] | | | | + + + +-------+ + + + + | Result panel 184 | + + + + + +------+ + + | | 2022-11-24 | [facility] | 89 | (missing) | (missing) | | (unavailable | 08:10:07 [facility] | | | | + + + +------+ + + + + | Result panel 185 | + + + + + +------+ + + | | 2022-11-24 | [facility] | 51 | (missing) | (missing) | | (unavailable | 08:10:07 [facility] | | | | + + + +------+ + + + + | Result panel 186 | + + + + + +------+ + + | | 2022-11-24 | [facility] | 85 | (missing) | (missing) | | (unavailable | 08:10:07 [facility] | | | | + + + +------+ + + + + | Result panel 187 | + + + + + +--------+ + + | | 2022-11-24 | [facility] | 10.8 | (missing) | (missing) | | (unavailable | 08:10:07 [facility] | | | | + + + +--------+ + + + + | Result panel 188 | + + + + + + + + + | | 2022-11-24 | [facility] | 11/23/2022 | (missing) | (missing) | | (unavailable | 08:10:07 | [facility] | | | | + + + + + + + + + | Result panel 189 | + + + + + + + + + | | 2022-11-24 | [facility] | POSITIVE | (missing) | (missing) | | (unavailable | 09:29:07 [facility] | | | | + + + + + + + + + | Result panel 190 | + + + + + + + + + | | 2022-11-24 | [facility] | NEGATIVE | (missing) | (missing) | | (unavailable | 09:29:07 [facility] | | | | + + + + + + + + + | Result panel 191 | + + + + + + + + + | | 2022-11-24 | [facility] | NEGATIVE | (missing) | (missing) | | (unavailable | 09:29:07 [facility] | | | | + + + + + + + + + | Result panel 192 | + + + + + + + + + | | 2022-11-24 | [facility] | NEGATIVE | (missing) | (missing) | | (unavailable | 09:29:07 [facility] | | | | + + + + + + + + + | Result panel 193 | + + + + + +-------+ + + | | 2022-11-25 | [facility] | 4.0 | (missing) | (missing) | | (unavailable | 05:25:07 [facility] | | | | + + + +-------+ + + + + | Result panel 194 | + + + + + +--------+ + + | | 2022-11-25 | [facility] | 3.42 | (missing) | (missing) | | (unavailable | 05:25:07 [facility] | | | | + + + +--------+ + + + + | Result panel 195 | + + + + + +--------+ + + | | 2022-11-25 | [facility] | 10.1 | (missing) | (missing) | | (unavailable | 05:25:07 [facility] | | | | + + + +--------+ + + + + | Result panel 196 | + + + + + +--------+ + + | | 2022-11-25 | [facility] | 29.5 | (missing) | (missing) | | (unavailable | 05:25:07 [facility] | | | | + + + +--------+ + + + + | Result panel 197 | + + + + + +--------+ + + | | 2022-11-25 | [facility] | 86.2 | (missing) | (missing) | | (unavailable | 05:25:07 | [facility] | | | | + + + +--------+ + + + + | Result panel 198 | + + + + + +--------+ + + | | 2022-11-25 | [facility] | 29.6 | (missing) | (missing) | | (unavailable | 05:25:07 | [facility] | | | | + + + +--------+ + + + + | Result panel 199 | + + + + + +--------+ + + | | 2022-11-25 | [facility] | 34.4 | (missing) | (missing) | | (unavailable | 05:25:07 [facility] | | | | + + + +--------+ + + + + | Result panel 200 | + + + + + +--------+ + + | | 2022-11-25 | [facility] | 13.9 | (missing) | (missing) | | (unavailable | 05:25:07 [facility] | | | | + + + +--------+ + + + + | Result panel 201 | + + + + + +-------+ + + | | 2022-11-25 | [facility] | 212 | (missing) | (missing) | | (unavailable | 05:25:07 [facility] | | | | + + + +-------+ + + + + | Result panel 202 | + + + + + +--------+ + + | | 2022-11-25 | [facility] | 85.4 | (missing) | (missing) | | (unavailable | 05:25:07 [facility] | | | | + + + +--------+ + + + + | Result panel 203 | + + + + + +-------+ + + | | 2022-11-25 | [facility] | 7.2 | (missing) | (missing) | | (unavailable | 05:25:07 [facility] | | | | + + + +-------+ + + + + | Result panel 204 | + + + + + +-------+ + + | | 2022-11-25 | [facility] | 7.2 | (missing) | (missing) | | (unavailable | 05:25:07 [facility] | | | | + + + +-------+ + + + + | Result panel 205 | + + + + + +-------+ + + | | 2022-11-25 | [facility] | 0.0 | (missing) | (missing) | | (unavailable | 05:25:07 [facility] | | | | + + + +-------+ + + + + | Result panel 206 | + + + + + +-------+ + + | | 2022-11-25 | [facility] | 0.2 | (missing) | (missing) | | (unavailable | 05:25:07 [facility] | | | | + + + +-------+ + + + + | Result panel 207 | + + + + + +-------+---------+ + | | 2022-11-25 | [facility] | 129 | mg/dL | (missing) | | (unavailable | 05:25:07 [facility] | | | | + + + +-------+---------+ + + + | Result panel 208 | + + + + + +------+---------+ + | | 2022-11-25 | [facility] | 11 | mg/dL | (missing) | | (unavailable | 05:25:07 [facility] | | | | + + + +------+---------+ + + + | Result panel 209 | + + + + + +--------+---------+ + | | 2022-11-25 | [facility] | 0.78 | mg/dL | (missing) | | (unavailable | 05:25:07 [facility] | | | | + + + +--------+---------+ + + + | Result panel 210 | + + + + + +------+ + + | | 2022-11-25 | [facility] | 77 | (missing) | (missing) | | (unavailable | 05:25:07 [facility] | | | | + + + +------+ + + + + | Result panel 211 | + + + + + +---------+ + + | | 2022-11-25 | [facility] | 14.10 | (missing) | (missing) | | (unavailable | 05:25:07 [facility] | | | | + + + +---------+ + + + + | Result panel 212 | + + + + + +-------+ + + | | 2022-11-25 | [facility] | 140 | (missing) | (missing) | | (unavailable | 05:25:07 [facility] | | | | + + + +-------+ + + + + | Result panel 213 | + + + + + +-------+ + + | | 2022-11-25 | [facility] | 3.0 | (missing) | (missing) | | (unavailable | 05:25:07 [facility] | | | | + + + +-------+ + + + + | Result panel 214 | + + + + + +-------+ + + | | 2022-11-25 | [facility] | 101 | (missing) | (missing) | | (unavailable | 05:25:07 | [facility] | | | | + + + +-------+ + + + + | Result panel 215 | + + + + + +------+ + + | | 2022-11-25 | [facility] | 31 | (missing) | (missing) | | (unavailable | 05:25:07 | [facility] | | | | + + + +------+ + + + + | Result panel 216 | + + + + + +--------+ + + | | 2022-11-25 | [facility] | 11.0 | (missing) | (missing) | | (unavailable | 05:25:07 | [facility] | | | | + + + +--------+ + + + + | Result panel 217 | + + + + + +-------+---------+ + | | 2022-11-25 | [facility] | 8.4 | mg/dL | (missing) | | (unavailable | 05:25:07 | [place] | | | [facility] ) | [facility] | | | | + + + +-------+---------+ + Social History + + + + | date | description | facility | + + + + | 2022-11-15 00:00 | Unknown if ever smoked | [facility] | + + + + | 2022-11-18 00:00 | Unknown if ever smoked | [facility] | + + + + | 2022-11-26 00:00 | Unknown if ever smoked | [facility] | + + + + Vital Signs [...] d | | | + + + +---------+ | 2022-11-18 00:00 | BMI | 22.5 | kg/m2 | + + + +---------+ | 2022-11-18 00:00 | BP_diastolic | 67 | mmHg | + + + +---------+ | 2022-11-18 00:00 | BP_diastolic | 71 | mmHg | + + + +---------+ | 2022-11-18 00:00 | BP_systolic | 124 | mmHg | + + + +---------+ | 2022-11-18 00:00 | BP_systolic | 131 | mmHg | + + + +---------+ | 2022-11-18 00:00 | heart_rate | 91 | /min | + + + +---------+ | 2022-11-18 00:00 | heart_rate | 92 | /min | + + + +---------+ | 2022-11-18 00:00 | height_metric | 165.1 | cm | + + + +---------+ | 2022-11-18 00:00 | height_standard | 65 | in | + + + +---------+ | 2022-11-18 00:00 | o2_saturation | 91 | % | + + + +---------+ | 2022-11-18 00:00 | o2_saturation | 98 | % | + + + +---------+ | 2022-11-18 00:00 | respiration_rate | 22 | /min | + + + +---------+ | 2022-11-18 00:00 | respiration_rate | 24 | /min | + + + +---------+ | 2022-11-18 00:00 | temperature_metric | 36.17 | C | | | | | | + + + +---------+ | 2022-11-18 00:00 | temperature_metric | 36.28 | C | | | | | | + + + +---------+ | 2022-11-18 00:00 | | 97.1 | F | | | temperature_standar | | | | | d | | | + + + +---------+ | 2022-11-18 00:00 | | 97.3 | F | | | temperature_standar | | | | | d | | | + + + +---------+ | 2022-11-18 00:00 | weight_metric | 61.23 | kg | + + + +---------+ | 2022-11-18 00:00 | weight_standard | 134.99 | lb | + + + +---------+ | 2022-11-18 00:00 | weight_standard | 135 | lb | + + + +---------+ | 2022-11-19 00:00 | BMI | 22.8 | kg/m2 | + + + +---------+ | 2022-11-19 00:00 | height_metric | 165.1 | cm | + + + +---------+ | 2022-11-19 00:00 | height_standard | 65 | in | + + + +---------+ | 2022-11-19 00:00 | weight_metric | 62.2 | kg | + + + +---------+ | 2022-11-19 00:00 | weight_standard | 137.13 | lb | + + + +---------+ | 2022-11-26 00:00 | BP_diastolic | 57 | mmHg | + + + +---------+ | 2022-11-26 00:00 | BP_systolic | 108 | mmHg | + + + +---------+ | 2022-11-26 00:00 | heart_rate | 79 | /min | + + + +---------+ | 2022-11-26 00:00 | o2_saturation | 97 | % | + + + +---------+ | 2022-11-26 00:00 | respiration_rate | 22 | /min | + + + +---------+ | 2022-11-26 00:00 | temperature_metric | 36.28 | C | | | | | | + + + +---------+ | 2022-11-26 00:00 | | 97.3 | F | | | temperature_standar | | | | | d | | | + + + +---------+"
--- OUTSIDE RECORDS SUMMARY | ~2022-11-27 | XMS | Continuity of Care Document ---
Demographics + + + | Address | [address] | | | [place] [address] | + + + | Preferred Language | Unknown | + + + | Marital Status | | + + + | Sikh Affiliation | Unknown | + + + | Race | White | + + + | Ethnic Group | Not or | + + + Author + + + | Author | [place] | + + + | Organization | [place] | + + + | Address | [address] | | | [place] [address] | + + + | Phone | | + + + Care Team Providers + + + + | Care Investigator Vice Name | Role | Phone | + [...] + + | 2022-11-15 00:00 | | [facility] | | | Guaifenesin/Dextromethorpha | | | | n | | + + + + | 2022-11-18 00:00 | | [facility] | | | Guaifenesin/Dextromethorpha | | | | n | | + + + + | 2022-11-26 00:00 | | [facility] | | | Guaifenesin/Dextromethorpha | | | | n | | + + + + | 2022-11-15 00:00 | CA CARB/VIT D3/MAG OX/ZN | [facility] | | | OXIDE | | + + + + | 2022-11-18 00:00 | CA CARB/VIT D3/MAG OX/ZN | [facility] | | | OXIDE | | + + + + | 2022-11-26 00:00 | CA CARB/VIT D3/MAG OX/ZN | [facility] | | | OXIDE | | + + + + | 2022-11-15 00:00 | APIXABAN | [facility] | + + + + | 2022-11-15 00:00 | APIXABAN | [facility] | + + + + | 2022-11-26 00:00 | APIXABAN | [facility] | + + + + | 2022-11-15 00:00 | BACLOFEN | [facility] | + + + + | 2022-11-18 00:00 | BACLOFEN | [facility] | + + + + | 2022-11-26 00:00 | BACLOFEN | [facility] | + + + + | 2022-11-26 00:00 | BENZONATATE | [facility] | + + + + | 2022-11-15 00:00 | LAMOTRIGINE | [facility] | + + + + | 2022-11-18 00:00 | LAMOTRIGINE | [facility] | + + + + | 2022-11-26 00:00 | LAMOTRIGINE | [facility] | + + + + | 2022-11-15 00:00 | ACETAMINOPHEN | [facility] | + + + + | 2022-11-18 00:00 | ACETAMINOPHEN | [facility] | + + + + | 2022-11-26 00:00 | ACETAMINOPHEN | [facility] | + + + + | 2022-11-15 00:00 | Cholecalciferol (Vitamin | [facility] | | | D3) | | + + + + | 2022-11-18 00:00 | Cholecalciferol (Vitamin | [facility] | | | D3) | | + + + + | 2022-11-26 00:00 | Cholecalciferol (Vitamin | [facility] | | | D3) | | + + + + | 2022-11-15 00:00 | AZITHROMYCIN | [facility] | + + + + | 2022-11-15 00:00 | AZITHROMYCIN | [facility] | + + + + | 2022-11-15 00:00 | CEFPODOXIME PROXETIL | [facility] | + + + + | 2022-11-15 00:00 | GABAPENTIN | [facility] | + + + + | 2022-11-18 00:00 | GABAPENTIN | [facility] | + + + + | 2022-11-26 00:00 | GABAPENTIN | [facility] | + + + + | 2022-11-15 00:00 | DULOXETINE HCL | [facility] | + + + + | 2022-11-18 00:00 | DULOXETINE HCL | [facility] | + + + + | 2022-11-26 00:00 | DULOXETINE HCL | [facility] | + + + + | 2022-11-15 00:00 | Armodafinil | [facility] | + + + + | 2022-11-18 00:00 | Armodafinil | [facility] | + + + + | 2022-11-26 00:00 | Armodafinil | [facility] | + + + + | 2022-11-15 00:00 | Fesoterodine Fumarate | [facility] | + + + + | 2022-11-18 00:00 | Fesoterodine Fumarate | [facility] | + + + + | 2022-11-26 00:00 | Fesoterodine Fumarate | [facility] | + + + + | 2022-11-15 00:00 | ASPIRIN | [facility] | + + + + | 2022-11-18 00:00 | ASPIRIN | [facility] | + + + + | 2022-11-26 00:00 | ASPIRIN | [facility] | + + + + | 2022-11-26 00:00 | GUAIFENESIN | [facility] | + + + + | 2022-11-15 00:00 | PRAVASTATIN SODIUM | [facility] | + + + + | 2022-11-18 00:00 | PRAVASTATIN SODIUM | [facility] | + + + + | 2022-11-26 00:00 | PRAVASTATIN SODIUM | [facility] | + + + + Problems + + + + | date | description | facility | + + + + | 2022-11-13 00:00 | Multiple subsegmental | [facility] | | | pulmonary emboli without | | | | acute cor pulmonale | | + + + + | 2022-11-13 00:00 | Multiple subsegmental | [facility] | | | pulmonary emboli without | | | | acute cor pulmonale | | + + + + | 2022-11-13 00:00 | Pneumonia due to COVID-19 | [facility] | | | virus | | + + + + | 2022-11-13 00:00 | Pneumonia due to COVID-19 | [facility] | | | virus | | [...] + + + | 2022-11-13 22:29 | ORTHOPEDIC RN (CURRENT) USE OF | [facility] | | | ANTICOAGULANTS | | + + + + | 2022-11-13 22:29 | OTHER ORTHOPEDIC RN (CURRENT) | [facility] | | | DRUG THERAPY | | + + + + | 2022-11-13 22:29 | DEPENDENCE ON SUPPLEMENTAL | [facility] | | | OXYGEN | | + + + + | 2022-11-18 00:00 | Nonspecific chest pain | [facility] | + + + + | 2022-11-18 00:00 | Nonspecific chest pain | [facility] | + + + + | 2022-11-18 00:00 | Weakness | [facility] | + + + + | 2022-11-18 00:00 | Weakness | [facility] | + + + + | 2022-11-18 10:28 | WEAKNESS | [facility] | + + + + | 2022-11-18 10:28 | [facility] (CURRENT) USE OF | [facility] | | | ANTICOAGULANTS | | + + + + | 2022-11-18 10:28 | OTHER ORTHOPEDIC RN (CURRENT) | [facility] | | | DRUG THERAPY | | + + + + | 2022-11-19 00:00 | Pneumonia | [facility] | + + + + Procedures + + + + | date | description | facility | + + + + | 2022-11-13 00:00 | INTRODUCTION OF | [facility] | | | ANTI-INFLAM INTO PERIPH | | | | VEIN, PERC APPROACH | | + + + + | 2022-11-13 00:00 | INTRODUCTION OF | [facility] | | | ANTI-INFLAM INTO PERIPH | | | | VEIN, PERC APPROACH | | + + + + | 2022-11-13 00:00 | ISOLATION | [facility] | + + + + | 2022-11-13 00:00 | ISOLATION | [facility] | + + + + | 2022-11-14 00:00 | INTRODUCE REMDESIVIR IN | [facility] | | | PERIPH VEIN, PERC, NEW TECH | | | | 5 | | + + + + | 2022-11-14 00:00 | INTRODUCE REMDESIVIR IN | [facility] | | | PERIPH VEIN, PERC, [...] (missing) | | (unavailable | 13:23:07 | [facility] | | | | | ) | [...] (missing) | | (unavailable | 05:25:07 | [facility] | | | | | ) | | Hospital | | | | + + + +-------+---------+ + Social History + + + + | date | description | facility | + + + + | 2022-11-15 00:00 | Unknown if ever smoked | [facility] | + + + + | 2022-11-18 00:00 | Unknown if ever smoked | [facility] | + + + + | 2022-11-26 00:00 | Unknown if ever smoked | [facility] | + + + + Vital Signs [...]
--- OUTSIDE RECORDS SUMMARY | ~2022-11-27 | XMS | Continuity of Care Document ---
Demographics + + + | Address | [address] | | | [place] [address] | + + + | Preferred Language | Unknown | + + + | Marital Status | | + + + | Confucianist Affiliation | Unknown | + + + | Race | White | + + + | Ethnic Group | Not or | + + + Author + + + | Author | [facility] | + + + | Organization | [facility] | + + + | Address | [address] | | | [place] [address] | + + + | Phone | | + + + Care Team Providers + + + + | Care Air Quality Specialist Name | Role | Phone | + [...] + + | 2022-11-15 00:00 | | [facility] | | | Guaifenesin/Dextromethorpha | | | | n | | + + + + | 2022-11-18 00:00 | | [facility] | | | Guaifenesin/Dextromethorpha | | | | n | | + + + + | 2022-11-26 00:00 | | [facility] | | | Guaifenesin/Dextromethorpha | | | | n | | + + + + | 2022-11-15 00:00 | CA CARB/VIT D3/MAG OX/ZN | [facility] | | | OXIDE | | + + + + | 2022-11-18 00:00 | CA CARB/VIT D3/MAG OX/ZN | [facility] | | | OXIDE | | + + + + | 2022-11-26 00:00 | CA CARB/VIT D3/MAG OX/ZN | [facility] | | | OXIDE | | + + + + | 2022-11-15 00:00 | APIXABAN | [facility] | + + + + | 2022-11-15 00:00 | APIXABAN | [facility] | + + + + | 2022-11-26 00:00 | APIXABAN | [facility] | + + + + | 2022-11-15 00:00 | BACLOFEN | [facility] | + + + + | 2022-11-18 00:00 | BACLOFEN | [facility] | + + + + | 2022-11-26 00:00 | BACLOFEN | [facility] | + + + + | 2022-11-26 00:00 | BENZONATATE | [facility] | + + + + | 2022-11-15 00:00 | LAMOTRIGINE | [facility] | + + + + | 2022-11-18 00:00 | LAMOTRIGINE | [facility] | + + + + | 2022-11-26 00:00 | LAMOTRIGINE | [facility] | + + + + | 2022-11-15 00:00 | ACETAMINOPHEN | [facility] | + + + + | 2022-11-18 00:00 | ACETAMINOPHEN | [facility] | + + + + | 2022-11-26 00:00 | ACETAMINOPHEN | [facility] | + + + + | 2022-11-15 00:00 | Cholecalciferol (Vitamin | [facility] | | | D3) | | + + + + | 2022-11-18 00:00 | Cholecalciferol (Vitamin | [facility] | | | D3) | | + + + + | 2022-11-26 00:00 | Cholecalciferol (Vitamin | [facility] | | | D3) | | + + + + | 2022-11-15 00:00 | AZITHROMYCIN | [facility] | + + + + | 2022-11-15 00:00 | AZITHROMYCIN | [facility] | + + + + | 2022-11-15 00:00 | CEFPODOXIME PROXETIL | [facility] | + + + + | 2022-11-15 00:00 | GABAPENTIN | [facility] | + + + + | 2022-11-18 00:00 | GABAPENTIN | [facility] | + + + + | 2022-11-26 00:00 | GABAPENTIN | [facility] | + + + + | 2022-11-15 00:00 | DULOXETINE HCL | [facility] | + + + + | 2022-11-18 00:00 | DULOXETINE HCL | [facility] | + + + + | 2022-11-26 00:00 | DULOXETINE HCL | [facility] | + + + + | 2022-11-15 00:00 | Armodafinil | [facility] | + + + + | 2022-11-18 00:00 | Armodafinil | [facility] | + + + + | 2022-11-26 00:00 | Armodafinil | [facility] | + + + + | 2022-11-15 00:00 | Fesoterodine Fumarate | [facility] | + + + + | 2022-11-18 00:00 | Fesoterodine Fumarate | [facility] | + + + + | 2022-11-26 00:00 | Fesoterodine Fumarate | [facility] | + + + + | 2022-11-15 00:00 | ASPIRIN | [facility] | + + + + | 2022-11-18 00:00 | ASPIRIN | [facility] | + + + + | 2022-11-26 00:00 | ASPIRIN | [facility] | + + + + | 2022-11-26 00:00 | GUAIFENESIN | [facility] | + + + + | 2022-11-15 00:00 | PRAVASTATIN SODIUM | [facility] | + + + + | 2022-11-18 00:00 | PRAVASTATIN SODIUM | [facility] | + + + + | 2022-11-26 00:00 | PRAVASTATIN SODIUM | [facility] | + + + + Problems + + + + | date | description | facility | + + + + | 2022-11-13 00:00 | Multiple subsegmental | [facility] | | | pulmonary emboli without | | | | acute cor pulmonale | | + + + + | 2022-11-13 00:00 | Multiple subsegmental | [facility] | | | pulmonary emboli without | | | | acute cor pulmonale | | + + + + | 2022-11-13 00:00 | Pneumonia due to COVID-19 | [facility] | | | virus | | + + + + | 2022-11-13 00:00 | Pneumonia due to COVID-19 | [facility] | | | virus | | [...] + + + | 2022-11-13 22:29 | 2ND GRADE TEACHER (CURRENT) USE OF | [facility] | | | ANTICOAGULANTS | | + + + + | 2022-11-13 22:29 | OTHER 2ND GRADE TEACHER (CURRENT) | [facility] | | | DRUG THERAPY | | + + + + | 2022-11-13 22:29 | DEPENDENCE ON SUPPLEMENTAL | [facility] | | | OXYGEN | | + + + + | 2022-11-18 00:00 | Nonspecific chest pain | [facility] | + + + + | 2022-11-18 00:00 | Nonspecific chest pain | [facility] | + + + + | 2022-11-18 00:00 | Weakness | [facility] | + + + + | 2022-11-18 00:00 | Weakness | [facility] | + + + + | 2022-11-18 10:28 | WEAKNESS | [facility] | + + + + | 2022-11-18 10:28 | [facility] (CURRENT) USE OF | [facility] | | | ANTICOAGULANTS | | + + + + | 2022-11-18 10:28 | OTHER 2ND GRADE TEACHER (CURRENT) | [facility] | | | DRUG THERAPY | | + + + + | 2022-11-19 00:00 | Pneumonia | [facility] | + + + + Procedures + + + + | date | description | facility | + + + + | 2022-11-13 00:00 | INTRODUCTION OF | [facility] | | | ANTI-INFLAM INTO PERIPH | | | | VEIN, PERC APPROACH | | + + + + | 2022-11-13 00:00 | INTRODUCTION OF | [facility] | | | ANTI-INFLAM INTO PERIPH | | | | VEIN, PERC APPROACH | | + + + + | 2022-11-13 00:00 | ISOLATION | [facility] | + + + + | 2022-11-13 00:00 | ISOLATION | [facility] | + + + + | 2022-11-14 00:00 | INTRODUCE REMDESIVIR IN | [facility] | | | PERIPH VEIN, PERC, NEW TECH | | | | 5 | | + + + + | 2022-11-14 00:00 | INTRODUCE REMDESIVIR IN | [facility] | | | PERIPH VEIN, PERC, [...] (missing) | | (unavailable | 05:25:07 | [facility] | | | [facility] ) | [facility] | | | | + + + +-------+---------+ + Social History + + + + | date | description | facility | + + + + | 2022-11-15 00:00 | Unknown if ever smoked | [facility] | + + + + | 2022-11-18 00:00 | Unknown if ever smoked | [facility] | + + + + | 2022-11-26 00:00 | Unknown if ever smoked | [facility] | + + + + Vital Signs [...]
[~2022-11-27 18:52] MED LIST changes: +BENZONATATE100 MG PO; +MUCINEX600 MG PO
--- OUTSIDE RECORDS SUMMARY | 2022-11-27 18:54 | XMS ---
PreManage Notification: RY REDDY Security Assembler Equipment Events No recent Security Events currently on file CRITERIA MET - PDM - [facility] - 2 Visits in 30 Days CARE PROVIDERS GLORIA FAIR Nurse Practitioner: Current PHONE: [phone] MERNA HARPERiatrsamira Castaneda PHONE: [phone] GABY JIANG Internal Medicine Current PHONE: [phone] SHIKHA BAUTISTA Nurse Practitioner: Family Current PHONE: [phone] ANGEL HALE Nurse Practitioner: Family Current PHONE: Unknown BIRD FOY Internal Medicine Current PHONE: [phone] TAMELA BUSTILLOS I. Physician Steamer Operator Current PHONE: Unknown MARQUISE TORRES Nurse Star Current PHONE: Unknown JUAN TREVIÑO Nurse Practitioner Current [place] PHONE: [phone] CRICKET Nurse Star SPEARS PHONE: [phone] MESSI LONDONO [facility] Current PHONE: [phone] GRABIEL VALLE Physician Steamer Operator Current PHONE: Unknown GUERA SHAVER Internal Medicine Current [place] PHONE: [phone] Genny has no Care Guidelines for this patient. E.Caroline VISIT COUNT (12 MO.) 3 Aravind ArmijoHarshal 4 PANCHO Lopez TOTAL 7 NOTE: Visits indicate total known visits. ED/UCC VISIT TRACKING (12 MO.) 11/27/2022 18:53 PANCHO Syed [place] TYPE: Emergency COMPLAINT: - ALTERED LOC 11/19/2022 12:16 PAN[facility] [place] TYPE: Emergency COMPLAINT: - WEAKNESS 11/18/2022 10:28 [facility] [place] TYPE: Emergency COMPLAINT: - WEAKNESS, COVID+ DIAGNOSES: - detention (current) use of anticoagulants - Other director long term care (current) drug therapy - Personal history of COVID-19 - Weakness 11/13/2022 20:14 PAN[facility] [place] TYPE: Emergency COMPLAINT: - WEAKNESS 05/01/2022 14:52 Aravind [facility] [place] TYPE: Emergency DIAGNOSES: - Disorientation, unspecified - Pain in unspecified shoulder - Weakness - Pain - Shoulder Pain 04/22/2022 12:59 Aravind [facility] TYPE: Emergency DIAGNOSES: - Influenza due to other identified influenza virus with other respiratory manifestations - Solitary pulmonary nodule - Shoulder Pain - Weakness - Weakness; Shoulder Pain 01/09/2022 18:13 Aravind Delgado AleksanderHarshal [facility] TYPE: Emergency DIAGNOSES: - Acute cystitis with hematuria - Dehydration - Hyperosmolality and hypernatremia - Repeated falls - Visual hallucinations - Fall - Multiple Falls - Weakness INPATIENT VISIT TRACKING (12 MO.) 11/19/2022 15:38 [facility] TYPE: Medical Surgical COMPLAINT: - PNEUMONIA 11/13/2022 22:29 PANCHO [facility] TYPE: Critical Care COMPLAINT: - COVID PNA,SUB SEGMENTAL PE DIAGNOSES: - Acute respiratory failure with hypoxia - Acute respiratory failure with hypoxia - COVID-19 - Dependence on supplemental oxygen - Dependence on supplemental oxygen - Dorsalgia, unspecified - Dorsalgia, unspecified - Hyperlipidemia, unspecified - Hyperlipidemia, unspecified - termite control servicer (current) use of anticoagulants - detention (current) use of anticoagulants - Multiple sclerosis - Multiple sclerosis - Multiple subsegmental pulmonary emboli without acute cor pulmonale - Multiple subsegmental pulmonary emboli without acute cor pulmonale - Other chronic pain - Other chronic pain - Other director long term care (current) drug therapy - Other director long term care (current) drug therapy - Overactive bladder - Overactive bladder - Pneumonia due to coronavirus disease 2018 - Pneumonia due to coronavirus disease 2018 - Tremor, unspecified - Tremor, unspecified - Unspecified osteoarthritis, unspecified site - Unspecified osteoarthritis, unspecified site 01/09/2022 18:13 Aravind [facility] [place] TYPE: Internal Medicine DIAGNOSES: - Acute cystitis with hematuria - Acute cystitis without hematuria - Adjustment disorder with depressed mood - Dehydration - Hyperosmolality and hypernatremia - Repeated falls - Visual hallucinations [email or web address]
--- NOTE | 2022-11-27 20:35 | NUR ---
PT ARRIVES TO FLOOR VIA STRETCHER. PT MOVED OVER TO BED BY STAFF MEMBERS, PT WAKES VERY BRIEFLY AND QUICKLY FALLS BACK TO SLEEP. PT ASSESSMENT COMPLETE. PT WAKES VERY BRIEFLY TO NAME BUT QUICKLY FALLS BACK TO SLEEP. LUNG SOUNDS CLEAR IN BILATERAL UPPER LOBES, CRACKLES TO BILATERAL LOWER LOBES. O2 IN PLACE AT 8 LPM. RR 28. SA02 93%. ROJAS CATH IN PLACE DRAINING CONCENTRATED URINE. IV SITES X 2 FLUSHED WITH 5 ML NS. WNL. VS OBTAINED. WNL. CALL LIGHT PLACED WITHIN PT REACH, BED ALARM ACTIVATED. ROOM IN VIEW OF RN STATION WITH CURTAIN OPEN.
[2022-11-27 20:48] VITALS: BP 133/71
[2022-11-27] MEDS ORDERED: ARMODAFINIL150 MG PO ×2 (20:52)
--- NOTE | 2022-11-27 21:30 | NUR ---
RESEARCH LEADER TO ROOM FOR IV PUMP ALARMING. IV ABX FINISHED. PT DOES NOT WAKE WHILE RESEARCH LEADER AT BEDSIDE. CALL LIGHT IN REACH, BED ALARM REMAINS ACTIVE. ROOM IN VIEW OF RN STATION WITH CURTAIN OPEN.
--- NOTE | 2022-11-27 23:02 | NUR ---
PT ROUNDING. PT RESTING IN BED WITH EYES CLOSED, SAO2 90% ON 8 LPM VIA OXYMASK. PT DOES NOT WAKE WHILE ELECTRO WINNING OPERATOR AT DOORWAY. CALL LIGHT IN REACH. BED ALARM ACTIVE.
--- NOTE | 2022-11-28 01:03 | NUR ---
PT TURNED AT REPOSITIONED. PROPPED WITH PILLOWS. PT WAKES BRIEFLY. ABLE TO STATES HER NAME AND . OTHER CRAMER UNABLE TO ANSWER QUESTIONS. FALLS BACK TO SLEEP QUICKLY. CALL LIGHT IN REACH. BED ALARM ACTIVE. ROOM IN VIEW OF RN STATION WITH CURTAIN OPEN.
[2022-11-28 01:29] VITALS: BP 130/66
--- NOTE | 2022-11-28 01:31 | NUR ---
PT ROUNDING. PT HEARD COUGHING FROM RN STATION, BEGAN TO DESATURATE TO 83% ON 8 LPM VIA OXYMASK WHILE COUGHING. LITHOGRAPHIC PHOTOGRAPHER TO ROOM. O2 INCREASED TO 12 LPM VIA OXYMASK. O2 UP TO 98%. O2 TITRATED BACK TO DOWN TO 6 LPM, SAO2 91-96%. PT REMAINS TACHYPNEIC, UNCHANGED FROM PREVIOUS ASSESSMENT. PT ASSESSMENT COMPLETE. PT ABLE TO WAKE BRIEFLY, ACCURATELY STATES NAME AND BIRTHDATE, STATES SHE IS IN [place]. PT FALLS BACK TO SLEEP QUICKLY. LUNG SOUNDS CLEAR IN BILATERAL UPPER LOBES, CRACKLES PRESENT IN BILATERAL LOWER LOBES. ROJAS CATH CONTINUES TO DRAIN CONCENTRATED YELLOW URINE. IVF INFUSING ORDERED. VS OBTAINED. WNL. CALL LIGHT IN REACH. BED ALARM ACTIVE. ROOM IN VIEW OF RN STATION WITH CURTAIN OPEN.
--- NOTE | 2022-11-28 02:30 | NUR ---
PT ROUNDING. PT REPOSITIONED AND PROPPED WITH PILLOWS. PT ABLE TO STATE NAME AND . OTHERWISE DISORIENTED. FALLS BACK TO SLEEP QUICKLY. CALL LIGHT IN REACH. BED ALARM ACTIVE. ROOM IN VIEW OF RN STATION WITH CURTAIN OPEN.
--- NOTE | 2022-11-28 04:00 | NUR ---
PT COUGHING, DESATURATION TO 75% YARN TEXTURE MACHINE OPERATOR AND OTHER RN TO ROOM. O2 INCREASED TO 15 LPM VIA OXYMASK UNTIL PT RECOVERED. OXYGEN TITRATED BACK TO 8 LPM, PT 90-92% ON 8 LPM, NO LONGER COUGHING AT THIS TIME.
[2022-11-28 05:21] VITALS: BP 148/72
--- NOTE | 2022-11-28 05:59 | NUR ---
PT ROUNDING. VS OBTAINED. WNL. ROJAS CATH EMPTIED. PT REPOSITIONED AND PROPPED WITH PILLOWS. PT WAKES BRIEFLY BUT QUICKLY FALLS BACK TO SLEEP. CALL LIGHT IN REACH. BED ALARM ACTIVE. ROOM IN VIEW OF RN STATION WITH CURTAIN OPEN.
--- NOTE | 2022-11-28 07:27 | NUR ---
REPORT FROM SHUKRI WELCH RN.
--- NOTE | 2022-11-28 07:41 | NUR ---
PATIENT IS SLEEPING WITH REGULAR RESPIRATIONS, 7L PER OXYMASK FOR 93% SATS. PATIENT REPOSITIONED TO RIGHT SIDE, PATIENT DID NOT WAKE UP. MORNING ASSESSMENT IS COMPLETE.
--- NOTE | 2022-11-28 08:46 | NUR ---
RT IN TO SEE PATIENT, ADJUST O2 DOWN TO 6L VIA OXYMASK.
[2022-11-28 09:08] VITALS: BP 120/57
--- NOTE | 2022-11-28 10:19 | NUR ---
PATIENT I/O COMPLETE, URINE OUT IS 160ML FOR LAST 4 HOURS.
--- NOTE | 2022-11-28 12:10 | NUR ---
PATIENT HAS IV ROCEPHIN INFUSING FOR 30 MINUTES. SQ ENOXAPARIN 60MG GIVEN TO LEFT ABD. PATIENT REPOSITIONED TO LEFT SIDE.
--- NOTE | 2022-11-28 13:17 | EKG ---
[facility] [address] [place], [place] [address] Signed Normal sinus rhythm Normal ECG No previous ECGs available Confirmed by MERNA ALVARADO MD ([id number]) on 11/28/2022 1:17:32 PM Electronically Signed By: MERNA ALVARADO 11/28/22 1317 PATIENT NAME: RY REDDY Electrocardiogram DATE OF : 41 PHYSICIAN: MERNA ALVARADO REPORT #: [id number] REPORT IS CONFIDENTIAL AND NOT TO BE RELEASED WITHOUT AUTHORIZATION
[2022-11-28 13:28] VITALS: BP 134/69
--- NOTE | 2022-11-28 13:31 | NUR ---
PATIENT REPOSITIONED MORE UPRIGHT IN BED. RR BETWEEN 24-28 PER MINUTE. VITALS ARE OTHERWISE STABLE. I/O COMPLETE, UO 125ML FOR THIS 4 HOURS. IVF CONTINUES. PATIENT IS AROUSABLE, IMMEDIATELY BACK ASLEEP.
--- NOTE | 2022-11-28 16:23 | NUR ---
PATIENT'S DAUGHTER IN ROOM. GIVEN ORAL CARE (MOUTH IS VERY DRY) AND CHAPSTICK ON HER PEELING LIPS. DR. ALVARADO IN TO SEE PATIENT.
--- NOTE | 2022-11-28 17:42 | NUR ---
PATIENT REPOSITIONED TO RIGHT SIDE. ORAL DEBRIDEMENT DONE, ORAL MOISTURIZER DONE. CHAP STICK APPLIED. PATIENT TOLERATED ACTIVITY FAIR. O2 SATS DID DIP BRIEFLY TO 84% PATIENT RECOVERED BACK TO 90+ % WITHIN 5 MINUTES.
--- NOTE | 2022-11-28 19:00 | NUR ---
REPORT RECEIVED FROM OFFGOING RNPAULA.
[2022-11-28 19:21] VITALS: BP 140/67
--- NOTE | 2022-11-28 19:55 | NUR ---
SHOELACE TIPPING MACHINE OPERATOR TO ROOM FOR SCHEDULED MEDICATION ADMIN. PT WAKES BRIEFLY WHILE SHOELACE TIPPING MACHINE OPERATOR AT BEDSIDE, QUICKLY FALLS BACK TO SLEEP. CALL LIGHT IN REACH. BED ALARM ACTIVE. ROOM IN VIEW OF RN STATION WITH CURTAIN OPEN.
[2022-11-28 21:28] VITALS: BP 152/64
--- NOTE | 2022-11-28 21:40 | NUR ---
PT ASSESSMENT COMPLETE. PT RESTING IN BED WITH EYES CLOSED. PT ORIENTED TO SELF ONLY. UNABLE TO ANSWER YES OR NO REGARDING PAIN. NO NONVERBAL S/SX OF PAIN PRESENT. O2 @ 6LPM VIA OXYMASK. PT WITH NONPRODUCTIVE COUGH PRESENT DURING ASSESSMENT. LUNG SOUNDS CLEAR TO BILATERAL UPPER LOBES, CRACKLES AUSCLTATED IN BILATERAL LOWER LOBES, DO NOT CLEAR WITH COUGH. SAO2 90-94%. TELE #[address], SR, HR 100-110'S. IV X2 FLUSHED WITH 5 ML NS. WNL. VS OBTAINED, WNL. PT REPOSITIONED AND PROPPED WITH PILLOWS. CALL LIGHT IN REACH. BED ALARM ACTIVE. ROOM IN VIEW OF RN STATION WITH CURTAIN OPEN.
--- NOTE | 2022-11-28 22:32 | NUR ---
HEARING AID ASSEMBLY SUPERVISOR TO ROOM FOR SCHEDULED MEDICATION ADMIN. PT RESTING IN BED WITH EYES CLOSED. OCCASIONAL COUGH NOTED. CALL LIGHT IN REACH. BED ALARM ACTIVE. ROOM IN VIEW OF RN STATION WITH CURTAIN OPEN.
--- NOTE | 2022-11-28 23:40 | NUR ---
HOSPITAL STAFF PHARMACIST TO ROOM FOR SCHEDULED MEDICATION ADMINISTRATION. PT RESTING WITH EYES CLOSED, DOES NOT WAKE WHILE HOSPITAL STAFF PHARMACIST AT BEDSIDE. PT CONTINUES TO HAVE OCCASIONAL COUGH. CALL LIGHT IN REACH. BED ALARM ACTIVE. ROOM IN VIEW OF RN STATION WITH CURTAIN OPN.
--- NOTE | 2022-11-29 00:40 | NUR ---
RECEIVED REPORT FROM REBEKAH COLLAZO. PATIENT REPOSITIONED IN BED. PATIENTS SCHEDULED MEDS GIVEN PER ORDER. PATIENT REMAINS ON 6L VIA OXYMASK. NO NEEDS NOTED. CALL LIGHT IN REACH.
--- NOTE | 2022-11-29 02:32 | NUR ---
PATIENT REPOSITIONED FLAT ON BACK. PATIENT REMAINS ON 6L VIA OXYMASK. NO NEEDS NOTED. CALL LIGHT IN REACH. BED ALARM ON FOR SAFETY.
--- NOTE | 2022-11-29 04:12 | NUR ---
PATIENT REPOSITIONED IN BED WITH PILLOWS UNDER BOTH HIPS. NO FURTHER NEEDS NOTED. CALL LIGHT IN REACH.
[2022-11-29 06:10] VITALS: BP 141/77
--- NOTE | 2022-11-29 06:16 | NUR ---
LAB IN ROOM TO REDRAW CBC PER THIS RN REQUEST. THIS RN REQUESTED THAT LABS BE REDRAWN TO CONFIRM RESULTS. PATIENT REPOSITIONED IN BED. ORAL CARE COMPLETED. PATIENT REMAINS ON 6L VIA NC. PATIENTS ROJAS EMPTIED AND CATH CARE COMPLETED. PATIENTS VITALS TAKEN AND RECORDED. PATIENT DENIES ANY FURTHER NEEDS. CALL LIGHT IN REACH. BED ALARM ON FOR SAFETY. IV INFUSING PER ORDER.
--- NOTE | 2022-11-29 09:32 | NUR ---
MORNING MEDS ADMINISTERED. PT HAD SMALL LIQUID STOOL CHANGED. ROJAS DRAINING LIGHT YELLOW URINE. IV SITE PATENT. TEMP DOWN TO 98.8. ASSESSMENT COMPLETE. DIMINISHED LUNGSOUNDS IN BASES BILATERAL.
--- NOTE | 2022-11-29 10:00 | NUR ---
UPDATE RECVD FRO DR. CRISOSTOMO THAT PATIENT FAMILY WISHES TO PROCEED WITH HOSPICE REFERRAL PATIENT IS DECLINING. IN TO ROOM, PATIENT DAUGHTER MYRNA AND GRANDSON AT THE BEDSIDE. MYRNA DOES AGREE THAT SHE FEELS THAT THE PATIENT AND FAMILY WOULD LIKE TO PURSUE HOSPICE AT THIS TIME. DISCUSSED THE PROS AND CONS OF HOSPICE CARE. MYRNA INQUIRING IF THE PATIENT WILL RETURN TO T SHE IS STILL RENTING AN APARTMENT AT [facility]. DISCUSSED THAT IF PATIENT AND FAMILY PROCEEDING WITH HOSPICE THE PATIENT COULD LIKELY RETURN TO [facility] OR [facility]. MYRNA STATES THE PATIENT HAD BEEN AT [facility] FOR 7 MONTHS AND SE FEELS THE PATIENT AND FAMILY WOULD FEEL MORE COMFORTABLE WITH HER THERE. ADVISED I WILL CONTACT [facility] TO SEE IF PATIENT COULD RETURN. LOCAL HOSPICE OPTIONS GIVEN TO MYRNA, SHE WISHES TO HAVE REFERRAL SENT TO [facility]. CONTACTED [facility] ADMIN WITH SERA [facility]. PATIENT IS OKAY TO RETURN LONG HOSPICE IS IN PLACE, BECAUSE THEY DO NOT HAVE A RN ON STAFF AT THIS TIME. WILL CONTACT [facility] FOR FURTHER PLANNING.
--- NOTE | 2022-11-29 10:13 | NUR ---
CONNECTED WITH FAMILY IN HALLWAY. TALKED OF DECISIONS TO BE MADE AND SACRAMENTS PT MIGHT DESIRE. FAMILY ASKED FOR PRINCIPAL BIOINFORMATICS SPECIALIST TO VISIT. RELAYED THAT REQUEST VIA USUAL METHOD. GAVE CARD.
[2022-11-29 10:16] VITALS: BP 136/69
--- NOTE | 2022-11-29 10:30 | NUR ---
SPOKE WITH RODRIGO COLLAZO AT [facility], SHE WILL REVIEW THE PATIENT CHART AND ATTEMPT FOR ADMISSION AT [facility] TOMORROW.
--- NOTE | 2022-11-29 11:07 | NUR ---
PT HAD ANOTHER LOOSE STOOL IN DEPENDS. CHANGED AND PLACED AN ALLYVEN ON COCCYX.
--- NOTE | 2022-11-29 11:46 | NUR ---
PT GIVEN PO MEDS DIRECTED, PT TOLERATED SMALL SIPS OF ICE WATER.
--- NOTE | 2022-11-29 12:36 | NUR ---
PT CURRENTLY SITTING UP. ASKED IF PT HOW SHE IS FEELING AND IF SHE NEEDED ANYTHING. PT STATES SHE IS FINE AND NEEDS NOTHING AT THE MOMENT
--- NOTE | 2022-11-29 14:41 | NUR ---
PT BOOSTED IN BED, CHANGED DEPENDS, SMALL AMT OF LOOSE STOOL. PT ALERT AND ORIENTED. ABLE TO ASSIST WITH ROLLING.
[2022-11-29 14:48] VITALS: BP 130/70
--- NOTE | 2022-11-29 14:51 | NUR ---
PATIENT HAD INCONT BM. MARCOS CARE AND ROJAS CARE DONE. NEW ATTENDS, CHUCKS AND LINENS. VITALS AND I&O'S CHARTED. PATIENT REPOSITIONED WITH PILLOW UNDER RIGHT HIP. CALL LIGHT IN REACH. NO FURTHER NEEDS AT THIS TIME.
--- NOTE | 2022-11-29 15:04 | NUR ---
RECVD MESSAGE FROM RODRIGO COLLAZO AND FROM [facility] REQUESTING RECORDS FOR THE PATIENT. RETURNED CALL TO [facility], SPOKE TO GERMAINE IN ADMIN. GERMAINE STATES THAT THEY PATIENT NOW REQUIRES ASSESSMENT FROM THEIR RN BEFORE RETURNING TO THE FACILITY EVEN WITH HOSPICE SERVICES IN PLACE. GERMAINE STATES THE FACILITY RN MAY BE OVER TO ASSESS THE PATIENT THIS AFTERNOON OR TOMORROW MORNING. RECORDS FAXED. RECVD CALL FROM NAVEEN COLLAZO, PATIENT DAUGHTER REQUESTING I COME DOWN TO SPEAK WITH HER. PATIENT DAUGHTER MYRNA STATES SHE WAS JUST AT [facility] SPEAKING WITH GERMAINE IN ADMIN AND THE CREDIT ANALYSIS MANAGER. MYRNA STATES THAT THE FACILITY MAY NOT BE ABLE TO ACCEPT THE PATIENT BACK IF SHE REQUIRES ASSISTANCE WITH FEEDING. SPOKE WITH RODRIGO COLLAZO WITH [facility]. EXPLAINED THE NEEDS OF [facility] AND THE HOPE THAT THE PATIENT WOULD STILL BE ABLE TO DISCHARGE BETWEEN 10-11 AM TO MEET WITH HOSPICE AT THE FACILITY. RODRIGO COLLAZO REQUESTING AN UPDATE FROM THE FACILITY [facility]UT[facility]Z SHE NEEDS TO MAKE SURE A HOSPITAL BED CAN BE DELIVERED BEFORE THE PATIENT DISCHARGE. RODRIGO STATES IF THEY ARE UNABLE TO ADMIT THE PATIENT TOMORROW THEY WILL LIKELY HAVE A OPENING ON TUESDAY.
[2022-11-29] MEDS ORDERED: ENOXAPARIN60 MG/0.6 SUB-Q (15:45)
[2022-11-29] MEDS ORDERED: AZITHROMYCIN500 MG PO ×2 (15:47)
[2022-11-29] MEDS ORDERED: CEFDINIR300 MG PO ×2 (15:47)
[2022-11-29 17:55] VITALS: BP 141/65
--- NOTE | 2022-11-29 19:32 | NUR ---
RECEIVED REPORT FROM DAY SHIFT RN. PATIENT IS RESTING IN BED WITH EYES CLSOED, TELE #1, HR [phone]. CALL LIGHT IN REACH.
[2022-11-29 21:11] VITALS: BP 149/74
--- NOTE | 2022-11-29 21:33 | NUR ---
PATIENT REPOSITIONED. VITALS TAKEN AND RECORDED. PATIENT INCONT OF STOOL. ATTEND CHANGED AND MARCOS CARE COMPLETED. PATIENT REPOSITIONED IN BED. PATIENT PROVIDED SIPS OF WATER. PM MEDS PER ORDER. PO MEDS GIVEN IN APPLESAUCE. PATIENT ORIENTED TO SELF. PATIENTS IV INFUSING PER ORDER. PATIENT REMAINS ON 5L VIA OXYMASK. PATIENT HAS HEEL PROTECTORS IN PLACE. PATIENT IS NOW FLOATED WITH A PILLOW UNDER EACH HIP. PATIENT DENIES ANY FURTHER NEEDS. CALL LIGHT IN REACH.
--- NOTE | 2022-11-29 22:08 | NUR ---
PATIENT IS RESTING IN BED WITH EYES CLOSED, RR 16. CALL LIGHT IN REACH.
--- NOTE | 2022-11-30 00:03 | NUR ---
PATIENT REPOSITIONED IN BED. PATIENTS SCHEDULED MEDS GIVEN PER ORDER. PATIENT REMAINS ON 6L VIA OXYMASK. IV INFUSING PER ORDER. PATIENT DENIES ANY NEEDS. CALL LIGHT IN REACH. BED ALARM ON FOR SAFETY.
--- NOTE | 2022-11-30 02:01 | NUR ---
PATIENT REPOSITIONED IN BED ON BACK. NO FURTHER NEEDS NOTED. CALL LIGHT IN REACH. BED ALARM ON FOR SAFETY.
--- NOTE | 2022-11-30 04:02 | NUR ---
PATIENT REPOSITIONED IN BED. PATIENT APPEARS COMFORTABLE. NO NEEDS NOTED. CALL LIGHT IN REACH. IV INFUSING PER ORDER.
[2022-11-30 05:31] VITALS: BP 122/56
--- NOTE | 2022-11-30 06:20 | NUR ---
PATIENT INCONT STOOL. ATTEND CHANGED, MARCOS AND ROJAS CARE COMPLETED. VITALS TAKEN AND RECORDED. ROJAS EMPTIED. INTAKE AND OUTPUT RECORDED. PATIENT REPOSITIONED IN BED. PATIENT REMAINS ON 6L VIA OXYMASK. PATIENT PROVIDED WITH SIPS OF WATER. PATIENTS FACE WASHED. PATIENT DENIES ANY NEEDS. CALL LIGHT IN REACH. BED ALARM ON FOR SAFETY. IV INFUSING PER ORDER. HEEL PROTECTORS IN PLACE.
--- NOTE | 2022-11-30 07:20 | NUR ---
recieved report from cnc machinist 2nd shift nurse. patient will be discharged today. pt going to [facility] on hospice. pt is currently resting. call light within reach.
--- NOTE | 2022-11-30 07:52 | NUR ---
PATIENT RESTING IN BED WITH EYES CLOSED. GAUZE AND JOCK STRAP INTACT, NOTED SOME DRAINAGE TO GAUZE AND ABD. PATIENT REPORTED PAIN WELL CONTROLLED. NO OTHER NEEDS AT THIS TIME. CALL LIGHT WITHIN REACH. BEDSIDE REPORT FROM CONCRETE LAYER NURSE.
--- NOTE | 2022-11-30 08:51 | NUR ---
UPDATED PATIENT ABOUT THE DISCHARGE PLAN AND THAT CASE MANAGEMENT IS TRYING TO [facility] HOSPICE CARE AT [facility] TODAY. 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 ALSO SPOKE TO LALO'S DAUGHTER AND GAVE HER AN UPDATE ON THE DISCHARGE PLAN.
--- NOTE | 2022-11-30 09:00 | NUR ---
PT RESTING IN BED. PT ON 6L OXYMASK, O2 SATS 93%, DESATS WHEN MASK NOT IN PLACE TO 88%, LUNG SOUNDS CLEAR WITH FINE CRACKLES IN BASES. PT ALERT AND ORIENTED. PT DENIES PAIN. BOWEL TONES ACTIVE, TOLERATING CLEAR LIQUID DIET WITH ASSISTANCE. ROJAS CATH IN PLACE, DRAINING CONCENTRATED URINE. PT WITHOUT EDEMA, HEEL PROTECTORS IN PLACE, CMS INTACT, WEAK EXTREMITIES. MORNING MEDICATIONS ADMISITERED BY ANDERSON COLLAZO.
[2022-11-30 09:25] VITALS: BP 142/78
--- NOTE | 2022-11-30 09:30 | NUR ---
PATIENT IN BED RESTING WITH EYES CLOSED. VITALS AND I&O'S CHARTED. PATIENT REFUSED BREAKFAST TRAY. RN NOTIFIED OF TEMP. CALL LIGHT IN REACH. NO FURTHER NEEDS AT THIS TIME.
--- NOTE | 2022-11-30 10:53 | NUR ---
PT PLACED ON 5L OXYMASK, O2 SATS 93%.
[2022-11-30 12:37] VITALS: BP 144/75
--- NOTE | 2022-11-30 13:58 | NUR ---
PATIENT WILL BE DISCHARGED TO HOSPICE/[facility] GOING TO TRANSPORT PATIENT. DISCHARGE ORDERS FAXED TO [facility].
--- NOTE | 2022-11-30 14:33 | NUR ---
pt discharged at 1430 by ems to [facility] on hospice.
== END 2022-11-30 14:30 | disposition home or self-care (01) | DRG 70 ==
LOC: ED 18:52 → MS 18:54
PROVIDERS: ADMIT Family Medicine; ATTEND Family Medicine
PROC: 4A033R1 Measurement of Arterial Saturation, Peripheral, Percutaneous Approach (ICD-10-PCS; principal; 2022-11-27)
PROC: 0T9B70Z Drainage of Bladder with Drainage Device, Via Natural or Artificial Opening (ICD-10-PCS; 2022-11-28)
DX: G93.41 Metabolic encephalopathy (principal); I26.99 Other pulmonary embolism without acute cor pulmonale; J96.01 Acute respiratory failure with hypoxia; U07.1 COVID-19; J12.82 Pneumonia due to coronavirus disease 2019; E87.1 Hypo-osmolality and hyponatremia; E46 Unspecified protein-calorie malnutrition; E87.6 Hypokalemia; D64.9 Anemia, unspecified; M54.30 Sciatica, unspecified side; M19.90 Unspecified osteoarthritis, unspecified site; G89.29 Other chronic pain; G35 Multiple sclerosis; M54.9 Dorsalgia, unspecified; Z95.5 Presence of coronary angioplasty implant and graft; Z79.899 Other long term (current) drug therapy; Z79.82 Long term (current) use of aspirin; Z79.01 Long term (current) use of anticoagulants; Z68.22 Body mass index [BMI] 22.0-22.9, adult
CPT/HCPCS: 36415; 36600; 71045; 80053; 81003; 82803; 83605; 84484; 85025; 93005; 93010; G0480; J0456; J0696; J1650; J3480; J3490; J7042; J7060; J7121